=== PATIENT | male | born 1970 | race Caucasian/White ===

== ENCOUNTER 2023-07-23 09:10 | Outpatient (OUT) | payer OTHER, SELFPAY ==
[2023-07-23 09:48] LABS: Basophils Absolute Auto 0.1 10^3/uL (0.0-0.1); Basophils Percent Auto 1.3 % (0.2-2.0); Eosinophils Absolute Auto 0.2 10^3/uL (0.0-0.7); Eosinophils Percent Auto 3.1 % (0.9-7.0); Hematocrit 46.1 % (42.0-54.0); Hemoglobin 15.1 g/dL (14.0-18.0); Immature Granulocytes Abs Auto 0.02 10^3/uL (0.00-0.03); Immature Granulocytes Pct Auto 0.4 % (0.0-0.5); Lymphocytes Absolute Auto 1.6 10^3/uL (1.2-3.8); Lymphocytes Percent Auto 28.9 % (20.5-60.0); Mean Corpuscular HGB Conc 32.8 g/dL (29.9-35.2); Mean Corpuscular Hemoglobin 31.4 pg (25.9-34.0); Mean Corpuscular Volume 95.8 fL (80.0-94.0); Mean Platelet Volume 9.7 fL (9.5-13.5); Monocytes Absolute Auto 0.7 10^3/uL (0.3-0.8); Monocytes Percent Auto 12.8 % (1.7-12.0); Neutrophils Absolute Auto 2.9 10^3/uL (1.4-6.5); Neutrophils Percent Auto 53.5 % (43.0-75.0); Platelet Count 233 10^3/uL (150-450); Red Blood Count 4.81 10^6/uL (4.70-6.10); Red Cell Distribution Width 13.7 % (11.0-15.0); White Blood Count 5.5 10^3/uL (4.0-11.0)
[2023-07-23 09:52] LABS: Microalbumin Urine Random 10.4 mg/dL (<=30.0)
[2023-07-23 09:53] LABS: Alanine Aminotransferase 58 U/L (16-63); Alkaline Phosphatase 94 U/L (46-116); Anion Gap 10.6; Aspartate Amino Transferase 28 U/L (15-37); Bilirubin Total 0.5 mg/dL (0.2-1.0); Calcium 9.7 mg/dL (8.5-10.1); Carbon Dioxide 30.2 mmol/L (21.0-32.0); Chloride 103 mmol/L (98-107); Chol HDL Ratio 3.8; Cholesterol 166 mg/dL (<=200); Estimated GFR (African America >60 (>=60); Estimated GFR (Non-African Ame >60 (>=60); Glucose 114 mg/dL (74-106); HDL Cholesterol 44 mg/dL (40-60); LDL Cholesterol Calculated 99.2 mg/dL; Potassium 3.8 mmol/L (3.5-5.1); Sodium 140 mmol/L (136-145); Triglycerides 114 mg/dL (<=150); VLDL CHOLESTEROL 22.8 mg/dL
[2023-07-23 10:34] LABS: Estimated Average Glucose 123 mg/dL; Glycohemoglobin A1C 5.9 % (4.5-6.2)
== END 2023-07-23 09:11 | disposition home or self-care (01) ==
PROVIDERS: PCP Internal Medicine; Visit Provider Internal Medicine
DX: Z00.00 Encounter for general adult medical examination without abnormal findings (principal)
CPT/HCPCS: 36415; 80053; 80061; 82043; 83036; 85025; G0103

== ENCOUNTER 2024-07-10 09:10 | Outpatient (OUT) | payer OTHER, SELFPAY ==
--- NOTE | 2024-07-10 09:27 | XR_ITS ---
[facility] [place] [id number] Patient Name: ASHLIE PETTY MRN: [facility]:[id number] date: 1970 Sex: M Assigned Patient Location: LAB Current Patient Location: Accession/Order Number: [id number] Exam Date: 07/10/2024 09:40 Report Date: 07/13/2024 21:22 At the request of: TAMERA BYERS Procedure: XR lumbar spine 6V w bending EXAM: XR lumbar spine 6V w bending HISTORY: Low Back Pain, Spondylosis Of Lumbar Pain COMPARISON: None. FINDINGS/IMPRESSION: 1. No acute fracture or dislocation. 2. Moderate degeneration of the L4-L5 and L5-S1 disc space. 3. Retrolisthesis of L4 on L5 measuring 0.5 cm in extension and 0.2 cm in flexion. 4. Atherosclerotic calcification of the abdominal aorta. 5. Mild degeneration of the sacroiliac joints. 6. Overlying bowel gas pattern is nonspecific. 7. Phleboliths of the pelvis. 8. Normal alignment of the bilateral hip joints. Electronically authenticated by: SCOTT HORNER Date: 07/13/2024 21:22
--- OUTSIDE RECORDS SUMMARY | 2024-07-10 09:32 | XMS_ITS | CCD ---
Author Organization [facility] Care Team Providers Care Audit Director Name Role Phone FREDRICK, DR PHILIP Admitting Unavailable FREDRICK, DR PHILIP Attending Unavailable FREDRICK, DR PHILIP Primary Care Unavailable FREDRICK, DR PHILIP Consulting Unavailable AGUSTIN, DR LONGO Admitting Unavailable AGUSTIN, DR LONGO Attending Unavailable FREDRICK, DR PHILIP Primary Care Unavailable AGUSTIN, DR LONGO Consulting Unavailable ARAM, NATHANIEL Consulting Unavailable FREDRICK, DR PHILIP Admitting Unavailable FREDRICK, DR PHILIP Attending Unavailable FREDRICK, DR PHILIP Primary Care Unavailable AGUSTIN, DR LONGO Admitting Unavailable AGUSTIN, DR LONGO Attending Unavailable FREDRICK, DR PHILIP Primary Care Unavailable AGUSTIN, DR LONGO Consulting Canelo BYERS, DR PHILIP Admitting Unavailable FREDRICK, DR PHILIP Attending Unavailable FREDRICK, DR PHILIP Primary Care Unavailable FREDRICK, DR PHILIP Consulting Canelo Byers, Waylon Unavailable Medications Current Medications Medication Drug Class(es) Dates Sig (Normalized) Sig (Original) ascorbic acid 500 mg oral tablet (1 source) Vitamin C Start: 07-10-2024 take 1 tablet by mouth once daily Ascorbic Acid (Vitamin C) 500 mg tablet Active 500 MG PO Daily July 10, 2024 12:00am atorvastatin 80 mg oral tablet (16 sources) HMG-CoA Reductase Inhibitor Start: 09-05-2023 End: 07-10-2024 take 1 tablet by mouth once daily Atorvastatin 80 mg tablet Active 80 MG PO Daily 90 90 July 10, 2024 8:55am take 1 tablet by darcy th every twenty-four hours Atorvastatin Calcium 80 MG 1 tablet Oral ly Once a day for 90 days Active diphenhydrAMINE hydrochloride 25 mg oral tablet (1 source) Histamine-1 Receptor Antagonist Start: 07-10-2024 take 1 tablet by mouth once daily at bedtime as needed Diphenhydramine Hcl (Benadryl Allergy) 25 mg tablet Active 25 MG PO Daily at bedtime as needed July 10, 2024 12:00am 60 actuat fluticasone propionate 0.25 mg/actuat / salmeterol 0.05 mg/actuat dry powder inhaler (13 sources) Corticosteroid, beta2-Adrenergic Agonist Start: 07-10-2024 Fluticasone Propion-Salmeterol 250-50 mcg/dose blister with device Active 1 INH INHALATION Twice daily 180 July 10, 2024 8:55am Start: 11-06-2023 End: 07-10-2024 Fluticasone Propion-Salmeter ol 250-50 mcg/dose blister with device Discontinued 1 INH INHALATION Twice daily November 05, 2023 11:00pm July 10, 2024 8:56am Start: 11-06-2023 Fluticasone Pr opion-Salmeterol Active 1 INH INHALATION Twice daily November 06, 2023 12:00am take 1 puff(s) by in halation twice daily Wixela Inhub 250-50 MCG/ACT 1 puff Inhalation Twice a day for 90 days Active levocetirizine dihydrochloride 5 mg oral tablet (2 sources) Histamine-1 Receptor Antagonist Start: 07-10-2024 End: 07-10-2024 take 1 tablet by mouth once daily in the evening Levocetirizine (Xyzal) 5 mg tablet Active 5 MG PO Every evening 90 July 10, 2024 8:55am lisinopril 20 mg oral tablet (16 sources) Angiotensin Converting Enzyme Inhibitor Start: 09-05-2023 End: 07-10-2024 take 1 tablet by mouth once daily Lisinopril 20 mg tablet Active 20 MG PO Daily 90 July 10, 2024 8:56am take 1 tablet by darcy th every twenty-four hours Lisinopril 20 MG 1 tablet Orally Once a day for 90 days Active magnesium glycinate 100 mg oral tablet (1 source) Start: 07-10-2024 take 1 tablet by mouth once daily Magnesium Glycinate 100 mg tablet Active 100 MG PO Daily July 10, 2024 12:00am Multivitamin tablet (1 source) Start: 07-10-2024 take 1 tablet by mouth once daily Multivitamin tablet Active 1 TAB PO Daily July 10, 2024 12:00am [place] 8-Krc-Ljh-Fish Oil (Fish Oil) 60-90-500 mg capsule (1 source) Start: 07-10-2024 take 1 capsule by mouth once daily [place] 9-Gfd-Nqc-Fish Oil (Fish Oil) 60-90-500 mg capsule Active 1 CAP PO Daily July 10, 2024 12:00am tiZANidine 4 mg oral tablet (12 sources) Central alpha-2 Adrenergic Agonist Start: 08-22-2023 End: 07-10-2024 take 1 tablet by mouth once daily at bedtime Tizanidine 4 mg tablet Active 4 MG PO Daily at bedtime 90 90 July 10, 2024 8:56am Start: 07-23-2023 tiZANidine HCl 4 MG 1/2 - 1 Orally q HS for 30 days Jun, Active traZODone hydrochloride 50 mg oral tablet (14 sources) Serotonin Reuptake Inhibitor Start: 07-10-2024 take 1 tablet by mouth once daily at bedtime Trazodone 50 mg tablet Active 50 MG PO Daily at bedtime 90 90 July 10, 2024 8:50am Start: 06-03-2024 End: 07-10-2024 Trazodone 50 mg tablet Disco ntinued 0 .ROUTE .COMPLEX 45 June 03, 2024 7:04am July 10, 2024 8:54am TAKE 1 AND 1/2 TABLETS BY MOUTH AT BEDTIME Start: 11-06-2023 End: 06-03-2024 Trazodone 50 mg tablet Disco ntinued 75 MG PO Daily at bedtime November 05, 2023 11:00pm June 03, 2024 7:04am Start: 11-06-2023 take 75 mg by mouth once daily at bedtime Trazodone Active 75 MG PO Daily at bedtime November 06, 2023 12:00am traZODone HCl 50 MG 1 1/2 Orally q HS for 30 days Active ZINC CITRATE (1 source) Start: 07-10-2024 Zinc Citrate 1 6.7 mg tablet,chewable Active MG PO July 10, 2024 12:00am Completed/Discontinued Medications Medication Drug Class(es) Dates Sig (Normalized) Sig (Original) [id number] 200 actuat albuterol 0.09 mg/actuat metered dose inhaler (14 sources) beta2-Adrenergic Agonist Start: 11-06-2023 End: 07-10-2024 take 1 puff(s) by inhalation every six hours as needed Albuterol Sulfate 90 mcg/actuation HFA aerosol inhaler Discontinued 2 PUFF INHALATION Every 6 hours as needed November 05, 2023 11:00pm July 10, 2024 8:41am take 2 puff(s) by in halation every six hours as needed for cough Albuterol Sulfate HFA 108 (90 Base) MCG/ACT 2 puffs Inhalation every 6 hours as needed for cough and SOB for 90 days Active take 1 puff(s) by in halation every four hours as needed ProAir Digihaler 108 (90 Base) MCG/ACT 1 puff as needed Inhalation every 4 hrs 90 MCG Active busPIRone hydrochloride 7.5 mg oral tablet (12 sources) Start: 11-06-2023 End: 07-10-2024 take 1 tablet by mouth once daily Buspirone 7.5 mg tablet Discontinued 7.5 MG PO Daily November 05, 2023 11:00pm July 10, 2024 8:41am take 1 tablet by darcy th every twenty-four hours busPIRone HCl 7.5 MG 1 tablet Orally ONCE A DAY for 90 days Active fluticasone propionate 0.05 mg/actuat metered dose nasal spray (12 sources) Corticosteroid Start: 11-06-2023 End: 07-10-2024 Fluticasone Propionate (Flonase Allergy Relief) 50 mcg/actuation spray,suspension Discontinued 1 SPRAY INTRANASAL Daily at bedtime November 05, 2023 11:00pm July 10, 2024 8:42am take 1-2 spray(s) na kirill route once daily at bedtime FLONASE 50 mcg 1-2 sprays each NOSTRIL QHS Active hydrocortisone 10 mg/ml / neomycin 3.5 mg/ml / polymyxin b [id number] unt/ml otic suspension (1 source) Aminoglycoside Antibacterial, Polymyxin-class Antibacterial, Corticosteroid Start: 04-27-2024 End: 07-10-2024 Otnmdnpt-Jfkwjmawa-Hv 3.5-10,000-1 mg/mL-unit/mL-% drops,suspension Discontinued 4 DROPS OTIC Every 8 hours as needed for ear pain 10 April 27, 2024 12:00am July 10, 2024 8:42am predniSONE 20 mg oral tablet (13 sources) Start: 12-19-2022 predniSONE 20 MG 1 tablet Orally tid w/ food x 3 days, then bid w/ food x 3 days, then qd w/ food x 3 days for 9 Nov, Not-Taking/PRN Start: 12-14-2022 predniSONE 20 MG 1 tablet Orally bid w/ food x 4 days, then qd w/ food x 3 days for 7 days Nov, Not-Taking/PRN triamcinolone acetonide 5 mg/ml topical cream (18 sources) Corticosteroid Start: 11-06-2023 End: 07-10-2024 Triamcinolone Acetonide 0.5 % cream Discontinued 1 APPLIC TOPICAL Twice daily as needed November 05, 2023 11:00pm July 10, 2024 8:42am Start: 12-19-2022 Triamcinolone Acetonide 0.5 % 1 application Externally Two times a Week for 7 days Nov, Active Start: 12-19-2022 Triamcinolone Acetonide 0.5 % 1 application Externally Two times a Week for 7 days Nov, Active Start: 12-19-2022 Triamcinolone Ac etonide 0.5 % 1 application Externally bid as needed for rash for 30 days Active Triamcinolone Ac etonide 0.5 % 1 application Externally bid as needed for rash for 30 days Active Problems Active Problems Problem Classification Problem Date Documented Date Episodic/Chronic Abdominal pain (2 sources) Right upper quadrant pain; Translations: [Right upper quadrant pain] Episodic Allergic reactions (7 sources) Allergic contact dermatitis due to plants, except food; Translations: [Allergic contact dermatitis due to plants, except food] Episodic Anxiety disorders (17 sources) Generalized anxiety disorder; Translations: [Generalized anxiety disorder] Chronic Asthma (13 sources) Unspecified asthma, uncomplicated; Translations: [Uncomplicated mild persistent asthma] Onset: 08-26-2020 Chronic Diabetes mellitus with complications (19 sources) Hyperglycemia due to type 2 diabetes mellitus; Translations: [Type 2 diabetes mellitus with hyperglycemia] Chronic Disorders of lipid metabolism (20 sources) Pure hypercholesterolemia, unspecified; Translations: [Pure hypercholesterolemia] Onset: 08-26-2020 Chronic Diverticulosis and diverticulitis (2 sources) Diverticulitis; Translations: [Diverticulitis of intestine, part unspecified, without perforation or abscess without bleeding] Chronic Essential hypertension (19 sources) Essential (primary) hypertension; Translations: [Essential hypertension] Onset: 08-26-2020 Chronic Miscellaneous mental health disorders (18 sources) Primary insomnia; Translations: [Primary insomnia] Chronic Osteoarthritis (19 sources) Unspecified osteoarthritis, unspecified site; Translations: [Localized, primary osteoarthritis of the hand] Onset: 08-26-2020 Chronic Other congenital anomalies (9 sources) Talipes equinovarus; 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, 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 Other connective tissue disease (8 sources) Plantar fascial fibromatosis; Translations: [Plantar fascial fibromatosis] Episodic Other connective tissue disease (1 source) Plantar fascial fibromatosis; Translations: [Plantar fascial fibromatosis] Episodic Other ear and sense organ disorders (2 sources) Acute actinic otitis externa; Translations: [Acute actinic otitis externa, right ear] Episodic Other screening for suspected conditions (not mental disorders or infectious disease) (17 sources) Encounter for screening for malignant neoplasm of prostate; Translations: [Encounter for screening for malignant neoplasm of colon] Onset: 08-24-2020 Episodic Other skin disorders (9 sources) Vesicular eczema of hands and/or feet; Translations: [Dyshidrosis [pompholyx]] Episodic Screening and history of mental health and substance abuse codes (2 sources) Encounter for screening for depression; Translations: [Depression screening] Episodic Spondylosis; intervertebral disc disorders; other back problems (12 sources) Lumbar spondylosis; Translations: [Spondylosis without myelopathy or radiculopathy, lumbar region] Chronic Spondylosis; intervertebral disc disorders; other back problems (3 sources) Low back pain; Translations: [Low back pain] 07-10-2024 Episodic Unclassified (4 sources) CONTACT W/AND (SUSP) EXPOS COVID-19; Translations: [CONTACT W/AND (SUSP) EXPOS COVID-19] Onset: 08-25-2020 Past or Other Problems Problem Classification Problem Date Documented Da te Episodic/Chronic Unclassified (1 source) CONTACT W/AND (SUSP) EXPOS COVID-19; Translations: [CONTACT W/AND (SUSP) EXPOS COVID-19] Onset: 07-07-2021 Unclassified (1 source) Congenital talipes equinovarus, unspecified foot Results Test Name Value Interpretation Reference Range Facility Comprehensive Metabolic Pane emmett 01-30-2024 Albumin [Mass/Vol] 4.694844 g/dL Normal 3.4-5.0 g/dL [facility] Other ALP [Catalytic activity/Vol] 94 U/L Normal 46-116 U/L [facility] Other ALT [Catalytic activity/Vol] 58 U/L Normal 16-63 U/L [facility] Other Anion gap [Moles/Vol] 10.6 mmol/L [facility] Other AST [Catalytic activity/Vol] 28 U/L Normal 15-37 U/L [facility] Other Bilirubin [Mass/Vol] 0.1974160 mg/dL Normal 0.2-1.0 mg /dL [facility] Other Calcium [Mass/Vol] 9.1549447 mg/dL Normal 8.5-10.1 mg/ dL [facility] Other Chloride [Moles/Vol] 103 mmol/L Normal 98-107 mmol/L [facility] Other CO2 [Moles/Vol] 30.37269466 mmol/L Normal 21.0-3 2.0 mmol/L [facility] Other Creatinine [Mass/Vol] 0.67591678 mg/dL Low 0.70-1.30 mg/dL [facility] Other Glucose [Mass/Vol] 114 mg/dL High 74-106 mg/dL [facility] Other Potassium [Moles/Vol] 3.61356238 mmol/L Normal 3.5-5.1 mmol/L [place] [employer] [facility] Other Protein [Mass/Vol] 8.794806 g/dL Normal 6.4-8.2 g/dL [employer] Other Sodium [Moles/Vol] 140 mmol/L Normal 136-145 mmol/L [facility] Other Urea nitrogen [Mass/Vol] 9.6491656 mg/dL Normal 7.0-18.0 mg/dL [facility] Other Urea nitrogen/Creatinine [Mass ratio] 13.0 mg/mg [facility] Other Comprehensive Metabolic Panel 4.0 g/dL [facility] Other Comprehensive Metabolic Panel 1.0 [facility] Other Comprehensive Metabolic Panel see note [facility] Other Comprehensive Metabolic Panel >60 >=60 [facility] Other Lipid Panelon 07-23-2023 Cholesterol [Mass/Vol] 166 mg/dL <=200 mg/dL [facility] Other Cholesterol in HDL [Mass/Vol] 44 mg/dL Normal 40-60 mg/dL [facility] Other Triglyceride [Mass/Vol] 114 mg/dL <=150 mg/dL [facility] Other Lipid Panel 99.2 mg/dL [facility] Other Lipid Panel 22.8 mg/dL [facility] Other Lipid Panel 3.8 [facility] Other PSA SCREENINGon 07-23-2023 PSA SCREENING 1.10 ng/mL <=4.00 ng/mL [facility] Other Comprehensive Metabolic Pane emmett 07-13-2022 Albumin [Mass/Vol] 4.1 g/dL [facility] Other Calcium [Mass/Vol] 9.9 mg/dL [facility] Other Chloride [Moles/Vol] 101 mmol/L [facility] Other CO2 [Moles/Vol] 30.6 mmol/L [facility] Other Creatinine [Mass/Vol] 0.65 mg/dL [facility] Other Creatinine [Mass/Vol] 21.5 mg/dL [employer] Other Glucose [Mass/Vol] 135 mg/dL [employer] Other Potassium [Moles/Vol] 4.2 mmol/L [employer] Other Sodium [Moles/Vol] 139 mmol/L [employer] Other Urea nitrogen [Mass/Vol] 14.0 mg/dL [employer] Other Comprehensive Metabolic Panel [employer] Other Comprehensive Metabolic Panel >60 [employer] Other Comprehensive Metabolic Panel 7.8 [employer] Other Comprehensive Metabolic Panel 3.7 [employer] Other CBC AUTO DIFFon 07-21-2021 BASO # 0.1 103/ul Normal 0.0-0.1 [facility] Comment on above: Performed By: #### C BC #### [facility] [address] [place] [address] Dr. Iliana Condon Basophils/100 WBC (Bld) 1.1 % Normal 0.2-2.0 [facility] Comment on above: Performed By: #### C BC #### [facility] [address] [place] [address] Dr. Iliana Condon EO # 0.2 103/ul Normal 0.0-0.7 [facility] Comment on above: Performed By: #### C BC #### [facility] [address] [place] [address] Dr. Iliana Condon Eosinophils/100 WBC (Bld) 4.2 % Normal 0.9-7.0 [facility] Comment on above: Performed By: #### C BC #### [facility] [address] [place] [address] Dr. Iliana Condon Erythrocyte distribution width (RBC) [Ratio] 13.2 % Normal 11.0-15.0 [facility] Comment on above: Performed By: #### C BC #### [facility] [address] [place] [address] Dr. Iliana Condon Hematocrit (Bld) [Volume fraction] 47.5 % Normal 42.0-54.0 [facility] Comment on above: Performed By: #### C BC #### [facility] [address] [place] [address] Dr. Iliana Condon Hemoglobin (Bld) [Mass/Vol] 16.2 g/dL Normal 14.0-18.0 [facility] Comment on above: Performed By: #### C BC #### [facility] [address] [place] [address] Dr. Iliana Condon IG # 0.01 10e3/ul Normal 0.00-0.03 [facility] Comment on above: Performed By: #### C BC #### [facility] [address] [place] [address] Dr. Iliana Condon IG % 0.2 % Normal 0.0-0.5 [facility] Comment on above: Performed By: #### C BC #### [facility] [address] [place] [address] Dr. Iliana Condon LYMPH # 1.5 103/ul Normal 1.2-3.8 [facility] Comment on above: Performed By: #### C BC #### [facility] [address] [place] [address] Dr. Iliana Condon Lymphocytes/100 WBC (Bld) 28.6 % Normal 20.5-60.0 [facility] Comment on above: Performed By: #### C BC #### [facility] [address] [place] [address] Dr. Iliana Condon MANUAL DIFF REQ NO Normal [facility] Comment on above: Performed By: #### C BC #### [facility] [address] [place] [address] Dr. Iliana Condon MCH (RBC) [Entitic mass] 31.8 pg Normal 25.9-34.0 [facility] Comment on above: Performed By: #### C BC #### [facility] [address] [place] [address] Dr. Iliana Condon MCHC (RBC) [Mass/Vol] 34.1 g/dL Normal 29.9-35.2 [facility] Comment on above: Performed By: #### C BC #### [facility] [address] [place] [address] Dr. Iliana Condon MCV (RBC) [Entitic vol] 93.1 fL Normal 80.0-94.0 [facility] Comment on above: Performed By: #### C BC #### [facility] [address] [address] [address] Iliana Condon MONO # 0.7 103/ul Normal 0.3-0.8 [facility] Comment on above: Performed By: #### C BC #### [facility] [address] [place] [address] Dr. Iliana Condon Monocytes/100 WBC (Bld) 12.6 % Critically high 1.7-12.0 [facility] Comment on above: Performed By: #### C BC #### [facility] [address] [place] [address] Dr. Iliana Condon NEUT # 2.8 103/ul Normal 1.4-6.5 [facility] Comment on above: Performed By: #### C BC #### [facility] [address] [place] [address] Dr. Iliana Condon Neutrophils/100 WBC (Bld) 53.3 % Normal 43.0-75.0 [facility] Comment on above: Performed By: #### C BC #### [facility] [address] [place] [address] Dr. Iliana Condon Platelet mean volume (Bld) [Entitic vol] 9.4 fL Critically low 9.5-13.5 [facility] Comment on above: Performed By: #### C BC #### [facility] [address] [place] [address] Dr. Iliana Condon PLT 224 103/ul Normal 150-450 [facility] Comment on above: Performed By: #### C BC #### [facility] [address] [place] [address] Dr. Iliana Condon RBC 5.10 106/ul Normal 4.70-6.10 [facility] Comment on above: Performed By: #### C BC #### [facility] [address] [place] [address] Dr. Iliana Condon WBC 5.2 103/ul Normal 4.0-11.0 [facility] Comment on above: Performed By: #### C BC #### [facility] [address] [place] [address] Dr. Iliana Condon GLYCOHEMOGLOBIN A1Con 2021 ADA RECOMMENDATION ADA THERAPEUTIC TARGET 6.0 - 7.0 ACTION SUGGESTED > 7.[address] [facility] Comment on above: Performed By: #### A 1C #### [facility] [address] [place] [address] Dr. Iliana Condon Glucose [Mass/Vol] 140 mg/dL Normal [facility] Comment on above: Performed By: #### A 1C #### [facility] [address] [place] [address] Dr. Iliana Condon HbA1c (Bld) [Mass fraction] 6.5 % Critically high <=6.0 [facility] Comment on above: Performed By: #### A 1C #### [facility] [address] [place] [address] Dr. Iliana Condon LIPID PROFILEon 07-21-2021 CHOL-HDL RATIO NORM SEE BELOW Normal [facility] Comment on above: Result Comment: 3.3 - 4.4 LOW RISK 4.4 - 7.1 AVERAGE RISK 7.1 - 11.0 MODERATE RISK >11.0 HIGH RISK Performed By: #### L IPID, CMP #### [facility] [address] [place] [address] Dr. Iliana Condon Cholesterol [Mass/Vol] 233 mg/dL Critically high <=200 [facility] Comment on above: Performed By: #### L IPID, CMP #### [facility] [address] [place] [address] Dr. Iliana Condon Cholesterol in HDL [Mass/Vol] 57 mg/dL Normal [facility] Comment on above: Performed By: #### L IPID, CMP #### [facility] [address] [address] [address] Iliana Condon Cholesterol in LDL [Mass/Vol] 128.4 mg/dL Normal [facility] Comment on above: Performed By: #### L IPID, CMP #### [facility] [address] [address] [address] Iliana Condon Cholesterol.total/Ch olesterol in HDL [Mass ratio] 4.1 {ratio} Normal [facility] Comment on above: Performed By: #### L IPID, CMP #### [facility] [address] [address] [address] Iliana Condon HDL NORMAL > or = 60 mg/dl - LOW CARDIOVASCULAR RISK <40 mg/dl - HIGH CARDIOVASCULAR RISK Normal [facility] Comment on above: Performed By: #### L IPID, CMP #### [facility] [address] [place] [address] Dr. Iliana Condon LDL CALC NORMAL SEE BELOW Normal [facility] Comment on above: Result Comment: <100 mg/dl OPTIMAL 100 - 129 mg/dl NEAR OR ABOVE OPTIMAL 130 - 159 mg/dl BORDERLINE HIGH 160 - 189 mg/dl HIGH >190 mg/dl VERY HIGH Performed By: #### L IPID, CMP #### [facility] [address] [place] [address] Dr. Iliana Condon Triglyceride [Mass/Vol] 238 mg/dL Critically high <=150 [facility] Comment on above: Performed By: #### L IPID, CMP #### [facility] [address] [address] [address] Iliana Condon VLDL CALC 47.6 mg/dL Normal [facility] Comment on above: Performed By: #### L IPID, CMP #### [facility] [address] [place] [address] Dr. Iliana Condon MICROALBUMIN, RAND URon -2 mALB 21.2 mg/L Normal <=30.0 [facility] Comment on above: Performed By: #### M ALBR #### [facility] [address] [place] [address] Dr. Iliana Condon PROF 14(COMP METB)on 022 Albumin [Mass/Vol] 4.2 g/dL Normal 3.5-5.0 [facility] Comment on above: Performed By: #### L IPID, CMP #### [facility] [address] [address] [address] Iliana Condon Albumin/Globulin [Mass ratio] 1.1 {ratio} Normal [facility] Comment on above: Performed By: #### L IPID, CMP #### [facility] [address] [address] [address] Iliana Condon ALP [Catalytic activity/Vol] 97 U/L Normal 38-126 [facility] [facility] Comment on above: Performed By: #### L IPID, CMP #### [facility] [address] [address] [address] Iliana Condon ALT [Catalytic activity/Vol] 62 U/L Normal 21-72 [facility] Comment on above: Performed By: #### L IPID, CMP #### [facility] [address] [address] [address] Iliana Condon Anion gap [Moles/Vol] 13.6 mmol/L Normal [facility] Comment on above: Performed By: #### L IPID, CMP #### [facility] [address] [address] [address] Iliana Condon AST [Catalytic activity/Vol] 34 U/L Normal 17-59 [facility] Comment on above: Performed By: #### L IPID, CMP #### [facility] [address] [address] [address] Iliana Condon Bilirubin [Mass/Vol] 0.6 mg/dL Normal 0.2-1.3 [facility] Comment on above: Performed By: #### L IPID, CMP #### [facility] [address] [address] [address] Iliana Condon Calcium [Mass/Vol] 10.2 mg/dL Normal 8.4-10.2 [facility] Comment on above: Performed By: #### L IPID, CMP #### [facility] [address] [address] [address] Iliana Condon Chloride [Moles/Vol] 100 mmol/L Normal 98-107 [facility] Comment on above: Performed By: #### L IPID, CMP #### [facility] [address] [address] [address] Iliana Condon CO2 [Moles/Vol] 27.2 mmol/L Normal 22.0-30.0 [facility] Comment on above: Performed By: #### L IPID, CMP #### [facility] [address] [address] [address] Iliana Condon Creatinine [Mass/Vol] 0.61 mg/dL Critically low 0.66-1.25 [facility] Comment on above: Performed By: #### L IPID, CMP #### [facility] [address] [place] [address] Dr. Iliana Condon EGFR-AF MEXICAN >60 Normal >=60 [facility] Comment on above: Performed By: #### L IPID, CMP #### [facility] [address] [place] [address] Dr. Iliana Condon EGFR-NON AF MEXICAN >60 Normal >=60 [facility] Comment on above: Performed By: #### L IPID, CMP #### [facility] [address] [address] [address] Iliana Condon Globulin (S) [Mass/Vol] 3.8 g/dL Normal [facility] Comment on above: Performed By: #### L IPID, CMP #### [facility] [address] [place] [address] Dr. Iliana Condon Glucose [Mass/Vol] 103 mg/dL Normal 74-106 [facility] Comment on above: Performed By: #### L IPID, CMP #### [facility] [address] [address] [address] Iliana Condon Potassium [Moles/Vol] 4.8 mmol/L Normal 3.4-5.0 [facility] Comment on above: Performed By: #### L IPID, CMP #### [facility] [address] [address] [address] Iliana Condon Protein [Mass/Vol] 8.0 g/dL Normal 6.1-8.2 [facility] Comment on above: Performed By: #### L IPID, CMP #### [facility] [address] [place] [address] Dr. Iliana Condon Sodium [Moles/Vol] 136 mmol/L Critically low 137-145 [facility] Comment on above: Performed By: #### L IPID, CMP #### [facility] [address] [place] [address] Dr. Iliana Condon Urea nitrogen [Mass/Vol] 15.0 mg/dL Normal 9.0-20.0 [facility] Comment on above: Performed By: #### L IPID, CMP #### [facility] [address] [place] [address] Dr. Iliana Condon Urea nitrogen/Creatinine [Mass ratio] 24.6 mg/mg Normal [facility] Comment on above: Performed By: #### L IPID, CMP #### [facility] [address] [place] [address] Dr. Iliana Condon Covid-19 PCR ([facility])on 06-24 SARS-CoV-2 (COVID-19) RNA TRISTA+probe Ql (Unsp spec) Not detected Normal NOT DETECTED [facility] Comment on above: Result Comment: This test is not yet approved or cleared by the [place] FDA. When there are no FDA-approved or cleared tests available, and other criteria are met, FDA can make tests available under an emergency access mechanism called an Emergency Use Authorization (EUA). The EUA for this test is supported by the Com[employer] Pilot of Health and Human Service's (HHS's) declaration that circumstances exist to justify the emergency use of in vitro diagnostics for the detection and/or diagnosis of the virus that causes COVID-19. This EUA will remain in effect (meaning this test can be used) for the duration of the COVID-19 declaration justifying emergency of IVDs, unless it is terminated or revoked by FDA (after which the test may no longer be used). When diagnostic testing is negative, the possibility of a false negative should be considered in the context of a patient's recent exposures and the presence of clinical signs and symptoms consistent with SARS-CoV-2. Performed By: #### C VDTB #### [facility] [address] [place] [address] [id number] [address] Iliana Condon Covid-19 PCR ([facility])on 07-26 SARS-CoV-2 (COVID-19) RNA TRISTA+probe Ql (Unsp spec) Not detected Normal NOT DETECTED [facility] Comment on above: Result Comment: This test is not yet approved or cleared by the [place] FDA. When there are no FDA-approved or cleared tests available, and other criteria are met, FDA can make tests available under an emergency access mechanism called an Emergency Use Authorization (EUA). The EUA for this test is supported by the Commut[employer] Pilot of Health and Human Service's (HHS's) declaration that circumstances exist to justify the emergency use of in vitro diagnostics for the detection and/or diagnosis of the virus that causes COVID-19. This EUA will remain in effect (meaning this test can be used) for the duration of the COVID-19 declaration justifying emergency of IVDs, unless it is terminated or revoked by FDA (after which the test may no longer be used). When diagnostic testing is negative, the possibility of a false negative should be considered in the context of a patient's recent exposures and the presence of clinical signs and symptoms consistent with SARS-CoV-2. Performed By: #### C VDTB #### [facility] [address] [place] [address] Renetta Fajardo Vital Signs Date Time Vital Sign Value Performing Clinician Facility 07-10-2024 08:38-0500 Body height 162.[address] [facility] 07-10-2024 08:38-0500 Body mass index (BMI) [Ratio] 22.8 kg/m2 [facility] 07-10-2024 08:38-0500 Body weight 60.[address] [facility] 07-10-2024 08:38-0500 Diastolic blood pressure 86 mm[Hg] [facility] 07-10-2024 08:38-0500 Heart rate 93 /min [facility] 07-10-2024 08:38-0500 Respiratory rate 12 /min [facility] 07-10-2024 08:38-0500 Systolic blood pressure 138 mm[Hg] [facility] 03-09-2024 15:47-0400 Body height 162.[address] [facility] 03-09-2024 15:47-0400 Body mass index (BMI) [Ratio] 22.1 kg/m2 [facility] 03-09-2024 15:47-0400 Body weight 58.[address] [facility] 03-09-2024 15:47-0400 Diastolic blood pressure 89 mm[Hg] [facility] 03-09-2024 15:47-0400 Heart rate 103 /min [facility] 03-09-2024 15:47-0400 Respiratory rate 12 /min [facility] 03-09-2024 15:47-0400 Systolic blood pressure 139 mm[Hg] [facility] 11-08-2023 10:02-0400 Body height 162.[address] [facility] 11-08-2023 10:02-0400 Body mass index (BMI) [Ratio] 21.8 kg/m2 [facility] 11-08-2023 10:02-0400 Body weight 57.[address] [facility] 11-08-2023 10:02-0400 Diastolic blood pressure 83 mm[Hg] [facility] 11-08-2023 10:02-0400 Heart rate 101 /min [facility] 11-08-2023 10:02-0400 Respiratory rate 12 /min [facility] 11-08-2023 10:02-0400 Systolic blood pressure 127 mm[Hg] [facility] 07-23-2023 08:30-0500 Body height 162.56 cm Waylon Ball Other [employer] Other 07-23-2023 08:30-0500 Body mass index (BMI) [Ratio] 20.42 kg/m2 Waylon Ball Other [employer] Other 07-23-2023 08:30-0500 Body weight 53.98 kg Waylon Ball Other [employer] Other 07-23-2023 08:30-0500 Diastolic blood pressure 84 mm[Hg] Waylon Ball Other [employer] Other 07-23-2023 08:30-0500 Respiratory rate 12 /min Waylon Ball Other [employer] Other 07-23-2023 08:30-0500 Systolic blood pressure 133 mm[Hg] Waylon Ball Other [employer] Other 2023 09:00-0400 Body height 162.56 cm Waylon Ball Other [employer] Other 2023 09:00-0400 Body mass index (BMI) [Ratio] 21.54 kg/m2 Waylon Ball Other [employer] Other 2023 09:00-0400 Body weight 56.93 kg Waylon Ball Other [facility] [employer] Other 2023 09:00-0400 Diastolic blood pressure 80 mm[Hg] Waylon Ball Other [employer] Other 2023 09:00-0400 Respiratory rate 12 /min Waylon Ball Other [employer] Other 2023 09:00-0400 Systolic blood pressure 130 mm[Hg] Waylon Ball Other [employer] Other 12-19-2022 15:45-0400 Body height 162.56 cm Waylon Ball Other [employer] Other 12-19-2022 15:45-0400 Body mass index (BMI) [Ratio] 21.83 kg/m2 Waylon Ball Other [employer] Other 12-19-2022 15:45-0400 Body weight 57.7 kg Waylon Ball Other [employer] Other 12-19-2022 15:45-0400 Diastolic blood pressure 84 mm[Hg] Waylon Ball Other [employer] Other 12-19-2022 15:45-0400 Respiratory rate 12 /min Waylon Ball Other [employer] Other 12-19-2022 15:45-0400 Systolic blood pressure 134 mm[Hg] Waylon Ball Other [employer] Other 07-13-2022 09:30-0500 Body height 162.56 cm Waylon Ball Other [employer] Other 07-13-2022 09:30-0500 Body mass index (BMI) [Ratio] 22.04 kg/m2 Waylon Ball Other [employer] Other 07-13-2022 09:30-0500 Body weight 58.24 kg Waylon Ball Other [employer] Other 07-13-2022 09:30-0500 Diastolic blood pressure 76 mm[Hg] Waylon Ball Other [employer] Other 07-13-2022 09:30-0500 Respiratory rate 12 /min Waylon Ball Other [employer] Other 07-13-2022 09:30-0500 Systolic blood pressure 122 mm[Hg] Waylon Ball Other [employer] Other Encounters Encounter Date Encounter Type Care Provider Facility Start: 07-10-2024 End: 07-10-2024 ambulatory [facility] Work Phone: Start: 07-10-2024 End: 07-10-2024 Encounter for general adult medical examination without abnormal findings [facility] Start: 07-10-2024 End: 07-10-2024 Patient encounter procedure [facility] Physician [facility] Work Phone: Start: 07-07-2024 Patient encounter status [facility] Start: 03-09-2024 End: 03-09-2024 ambulatory [facility] Work Phone: Start: 03-09-2024 End: 03-09-2024 Patient encounter procedure [facility] Physician [facility] Work Phone: Start: 11-08-2023 End: 11-08-2023 ambulatory [facility] Work Phone: Start: 11-08-2023 End: 11-08-2023 Patient encounter procedure [facility] Physician [facility] Work Phone: Start: 08-22-2023 Non-patient / Non-visit [facility] Physician [facility] Work Phone: Start: 07-23-2023 End: 07-23-2023 ambulatory Waylon Byers Other [employer] Other Start: 07-23-2023 Encounter for genera l adult medical examination without abnormal findings Waylon Fred[facility] Start: 07-23-2023 Periodic preventive med est patient 40-64yrs Waylon Byers [facility] Start: 07-23-2023 Telephone encounter Waylon ARANDA [facility] Start: 02-26-2023 End: 02-26-2023 ambulatory Waylon Byers Other [employer] Other Start: 02-26-2023 Telephone encounter Waylon ARANDA [facility] Start: 2023 End: 2023 ambulatory Waylon Byers Other [employer] Other Start: 2023 Patient encounter procedure Waylon Byers [facility] Start: 12-19-2022 End: 12-19-2022 ambulatory Waylon Byers Other [employer] Other Start: 12-19-2022 Office outpatient vi sit 15 minutes Waylon Byers [facility] Start: 12-18-2022 End: 12-18-2022 ambulatory Waylon Byers Other [employer] Other Start: 12-18-2022 Telephone encounter Waylon Byers [facility] Start: 12-14-2022 End: 12-14-2022 ambulatory Waylon Byers Other [employer] Other Start: 12-14-2022 Telephone encounter Waylon Byers [facility] Start: 07-29-2022 End: 07-29-2022 ambulatory Waylon Byers Other [employer] Other Start: 07-29-2022 Telephone encounter Waylon Byers [facility] Start: 07-13-2022 End: 07-13-2022 ambulatory Waylon Fredrick Other [employer] Other Start: 07-13-2022 Encounter for genera l adult medical examination without abnormal findings Waylon Byers [facility] Start: 07-13-2022 Periodic preventive med est patient 40-64yrs Waylon Byers [facility] Start: 07-25-2021 Encounter for genera l adult medical examination without abnormal findings DR WAYLON BYERS [facility] Start: 07-21-2021 End: 07-22-[address] WAYLON BYERS Facility:[facility] Start: 07-21-2021 End: 07-22-2021 Encounter for general adult medical examination without abnormal findings DR WAYLON BYERS Facility:[facility] Start: 07-07-2021 End: 07-07-[address] WAYLON BYERS Facility:[facility] Start: 06-23-[address] WAYLON BYERS Facili ty:[facility] Start: 08-25-2020 Encounter for preprocedural laboratory examination DR QING VELEZ [facility] Start: 08-24-2020 End: 08-24-[address] QING VELEZ Facility:[facility] Start: 08-20-2020 End: 08-21-[address] QING VELEZ Facility:[facility] Start: 08-20-2020 End: 08-21-2020 Encounter for preprocedural laboratory examination DR QING VELEZ Facility:[facility] Procedures Date Procedure Procedure Detail Performing Clinician Start: 07-21-[address] EDUARDO [facility] [place] Comment on above: Performed By: #### P SAS #### [facility] [address] [address] [address] Iliana Condon Depression screening Nany Byers Other Plan of Treatment Date Care Activity Detail Author Start: 07-10-2024 Patient referral [facility] Work Phone: Comprehensive metabo lic 2000 panel - Serum or Plasma [facility] Patient Education Low back pain in adults [facility] Work Phone: Patient referral [facility] Work Phone: XR Lumbar spine Views [facility] Immunizations Immunization Date Immunization Notes Care Provider Fa greer 03-09-2024 influenza, seasonal, injectable, preservative free [facility] 2023 influenza, injectabl e, quadrivalent, preservative free Waylon Byers Other [facility] 03-07-2022 influenza virus vaccine, split virus (incl. purified surface antigen) Waylon Byers Other [employer] Other 03-07-2022 influenza virus vaccine, unspecified formulation [facility] 05-27-2020 zoster vaccine, live Benjami n Fredrick Other [facility] 03-03-2020 zoster vaccine, live Delmyami n [facility] Other [facility] 02-23-2020 influenza virus vaccine, split virus (incl. purified surface antigen) Waylon Byers Other [facility] [employer] Other 02-23-2020 influenza virus vaccine, unspecified formulation [facility] Payers Date Payer Category Payer Unknown [id number] [id number] [id number] 1970 Unknown [id number] [id number] [id number] 1970 Unknown [id number] [id number] [id number] 1970 Unknown [id number] [id number] [id number] 1970 Unknown [id number] 2.16.84 [id number] 1959 Self-pay 1959 Unknown [id number] Unknown [id number] 2.16.8 [id number] Social History Date Type Detail Facility Sex Assigned At [facility] Other Start: 08-22-2023 End: 08-22-2023 Tobacco smoking status NHIS Ex-smoker (finding) [facility] Start: 1970 Sex Assigned At Male F [facility] Start: 07-10-2024 Sex Male (finding) [facility] Medical Equipment Procedure Code Equipment Code Equipment Original Text Equi pment Identifier Dates Clinical Notes 08-24-2020 to 07-23-2023 Note Date & Type Note Facility 07-23-2023 Evaluation note Encounter Date Diagnosis Assessment Notes Jun, Wellness examination (ICD-10 - Z00.00) Healthy diet and exercise. Reviewed age-appropriate preventive testing recommended. Jun, Type 2 diabetes mellitus with hyperglycemia, without long-term current use of insulin (ICD-10 - E11.65) This patient is following a comprehensive diabetic treatment plan. They are checking their feet daily for calluses and nonhealing ulcers. They are being seen for yearly dilated eye examinations. Goals: SBP less than 130, LDL less than 100, FBS less than 140, A1C less than 7%. They are checking their BS daily, will which are reviewed at the office visit. Continue regular routine monitoring of A1C, Microalbumin, Dilated eye exam and Foot exam Jun, Primary hypertension (ICD-10 - I10) This patient is instructed to consume a healthy, low-fat, low-salt diet. They are also encouraged to continue exercise to achieve/maintain a normal BMI. Jun, Mild persistent asthma without complication (ICD-10 - J45.30) No ER visits for AE. Continue LABA/ICS maintenance use. Rare use of STEPHEN, not everyday. Jun, Mixed hyperlipidemia (ICD-10 - E78.2) Instructed on diet and exercise with continued statin therapy.Discussed the beneficial effects of lowering cholesterol in reducing the risk for cerebrovascular and cardiovascular disease. Jun, RANDEE (generalized anxiety disorder) (ICD-10 - F41.1) Healthy diet w exercise. COntinue medical therapy, avoid abrupt d/c of medications Jun, Lumbar spondylosis (ICD-10 - M47.816) The patient is instructed to avoid bending, twisting or lifting. They are to use intermittent heat and ice as needed. They may schedule a massage or gentle manipulation. They may safely use Tylenol as needed. Jun, Primary insomnia (ICD-10 - F51.01) Trazodone has improved his insomnia but he has also stopped drinking beer and developed neck and back pain during sleep. Suggest trial of muscle relaxant in place of Trazodone Jun, Screening PSA (prostate specific antigen) (ICD-10 - Z12.5) [employer] Other 09-01-2023 Evaluation note* Encounter Date Diagnosis Assessment Notes Treatment Notes Treatment Clinical Notes Feb, Type 2 diabetes mellitus with hyperglycemia, without long-term current use of insulin (ICD-10 - E11.65) This patient is following a comprehensive diabetic treatment plan. They are checking their feet daily for calluses and nonhealing ulcers. They are being seen for yearly dilated eye examinations. Goals: SBP less than 130, LDL less than 100, FBS less than 140, AC and A1C less than 7%. They are checking their BS daily, will which are reviewed at the office visit. Continue regular routine monitoring of A1C,] Microalbumin, Dilated eye exam and Foot exam Work does A1C next week - goal < 7%, he will call w/ results Feb, Primary hypertension (ICD-10 - I10) This patient is instructed to consume a healthy, low-fat, low-salt diet. They are also encouraged to continue exercise to achieve/maintain a normal BMI. Feb, Mild persistent asthma without complication (ICD-10 - J45.30) No ER visits for AE Continue avoidance of lung irritants Continue avoidance, treatment of allergies Continue maintenance therapy w/ LABA/ICS Rare use of STEPHEN Feb, Mixed hyperlipidemia (ICD-10 - E78.2) Instructed on diet and exercise with continued statin therapy.Discussed the beneficial effects of lowering cholesterol in reducing the risk for cerebrovascular and cardiovascular disease. Feb, RANDEE (generalized anxiety disorder) (ICD-10 - F41.1) Healthy diet, exercise and keep active. Instructed on relaxation exercises, calming activities. Proper sleep routine beneficial Avoid stimulants Feb, Lumbar spondylosis (ICD-10 - M47.816) The patient is instructed to avoid bending, twisting or lifting. They are to use intermittent heat and ice as needed. They may schedule a massage or gentle manipulation. They may safely use Tylenol as needed. Feb, Primary insomnia (ICD-10 - F51.01) Consistent sleep routine, avoid TV, phone, computer and exercise prior to bedtime. Continue TRazodone, which has been beneficial [employer] Other 06-23-2023 Evaluation note* Encounter Date Diagnosis Assessment Notes Treatment Notes Treatment Clinical Notes Nov, Allergic contact dermatitis due to plants, except food (ICD-10 - L23.7) [employer] Other 01-20-2023 Evaluation note* Encounter Date Diagnosis Assessment Notes Treatment Notes Treatment Clinical Notes Jun, Essential hypertension (ICD-10 - I10) This patient is instructed to consume a healthy, low-fat, low-salt diet. They are also encouraged to continue exercise to achieve/maintain a normal BMI. Jun, Wellness examination (ICD-10 - Z00.00) Healthy diet and exercise. Reviewed age-appropriate preventive testing recommended. Jun, Mild persistent asthma without complication (ICD-10 - J45.30) Continue maintenance LABA/ICS. Occasional use of STEPHEN and no visits to the ER/Hospital since last OV Jun, Type 2 diabetes mellitus with hyperglycemia, without long-term current use of insulin (ICD-10 - E11.65) This patient is following a comprehensive diabetic treatment plan. They are checking their feet daily for calluses and nonhealing ulcers. They are being seen for yearly dilated eye examinations. Goals: SBP less than 130, LDL less than 100, FBS less than 140, AC and A1C less than 7%. They are checking their BS daily, will which are reviewed at the office visit. Jun, Hyperlipidemia type II (ICD-10 - E78.01) Diet and exercise with continued statin therapy. Jun, Eczema of both hands (ICD-10 - L30.9) Avoid excessive washing, use moisturizers and topical steroids for eczema rash Jun, Primary insomnia (ICD-10 - F51.01) Consistent sleep routine, avoid naps, avoid stimulants Jun, Pes equinovarus (ICD-10 - Q66.00) Recommend shoe inserts to prevent callus formation and to ease pain. [place] [employer] Other 03-03-2021 NoteOPERATIVE NOTE OPERATION DATE: 08/24/2020 PROCEDURE NAME: Colonoscopy to the cecum. PREOPERATIVE DIAGNOSIS: Screening examination. POSTOPERATIVE DIAGNOSIS: Normal inspection of the entire colon into the cecum. MEDICATIONS USED: Propofol as per the Anesthesia Team. PROCEDURE DESCRIPTION: Patient placed in left lateral decubitus position. The Olympus 180 colonoscope inserted into the rectum then advanced under direct vision through the entire colon into the cecum. No abnormalities were seen. There was no polyp or neoplasm. The cecum was reached and inspected. The endoscope was slowly withdrawn. FINAL DIAGNOSIS: Normal colonoscopy. RECOMMENDATION: Repeat colonoscopy for screening purposes in 10 years. CC: Waylon Byers DO. [facility] Signed and Approved by: DR QING VELEZ 08/31/2020 08:02:00St. [facility]Evaluation noteNo InformationNor[facility] [employer] Other Evaluation noteNoray [facility] memorial hospital [employer] Other Evaluation note* Diagnosis Onset Date Resolution Status Essential hypertension acute RANDEE (generalized anxiety disorder) acute Hypercholesterolemia acute Lumbar spondylosis acute Primary insomnia acute Type 2 diabetes mellitus with hyperglycemia acute [facility] Work Phone: Evaluation note* Diagnosis Onset Date Resolution Status Admit Date Essential hypertension acute Ja nuary 2024 8:22am RANDEE (generalized anxiety disorder) a cute July 10, 2024 8:22am Hypercholesterolemia acute 2024 8:22am Low back pain acute June 8:22am Lumbar spondylosis acute Junuar 2024 8:22am Primary insomnia acute July 10, 2024 8:22am Screening PSA (prostate spec ific antigen) acute July 10 8:22am Type 2 diabetes mellitus wit h hyperglycemia acute July 10 8:22am Wellness examination acute 2024 8:22am [facility] Work Phone: History general Narrative - Reported* Type Description Date Medical History Eczema, dyshidrotic Medical History Type 2 diabetes davey itus with hyperglycemia, without long-term current use of insulin Medical History Hyperlipidemia type II Medical History Essential hypertension Medical History Mild persistent asthma without c omplication Medical History Acute actinic otitis externa, ri t ear Medical History Screening PSA (prostate specific antigen) Medical History Diverticulitis Medical History Primary osteoarthritis of right hand Medical History Primary osteoarthritis of left h and Medical History RANDEE (generalized anxiety disorde r) Medical History Depression screening Medical History Allergic contact dermatitis due to plant Medical History RUQ abdominal pain Medical History Plantar fascial fibromatosis Surgical History COLONOSCOPY Hospitalization History SEE SURGICAL HX [facility] [employer] [facility] [employer] Other History general Narrative - Reported* Type Description Date Medical History Eczema, dyshidrotic Medical History Type 2 diabetes davey itus with hyperglycemia, without long-term current use of insulin Medical History Hyperlipidemia type II Medical History Essential hypertension Medical History Mild persistent asthma without c omplication Medical History Acute actinic otitis externa, ri t ear Medical History Screening PSA (prostate specific antigen) Medical History Diverticulitis Medical History Primary osteoarthritis of right hand Medical History Primary osteoarthritis of left h and Medical History RANDEE (generalized anxiety disorde r) Medical History Depression screening Medical History Allergic contact dermatitis due to plant Medical History RUQ abdominal pain Medical History Plantar fascial fibromatosis Surgical History COLONOSCOPY 08/2020 Hospitalization History SEE SURGICAL HX [employer] Other Hospital Discharge instructionsAmbulatory Orders* Referral to Pain Management Location: None [facility] Work Phone: Summary Purpose Family History Relationship Condition Age at Onset Recorded Date/T kleber Not Specified Malignant neoplasm Unknown Diabetes mellitus Unknown Relationship Condition Age at Onset Recorded Date/T kleber mother Malignant neoplasm Unknown Diabetes mellitus Unknown Advance Directives Advance Directive Response Recorded Date/ Time Advance Directives No July 23, 2023 10:11am Advance Directive Response Recorded Date/ Time Advance Directives No July 23, 2023 9:11am Chief Complaint and Reason for Visit Chief Complaint Amb Documentation 4 Month Check Up Reason for Visit Essential hypertensi on RANDEE (generalized anxiety disorder) Hypercholesterolemia Lumbar spondylosis Primary insomnia Type 2 diabetes mellitus with hyperglycemia Chief Complaint 3 month f/u Reason for Visit Essential hypertensi on RANDEE (generalized anxiety disorder) Hypercholesterolemia Lumbar spondylosis Primary insomnia Type 2 diabetes mellitus with hyperglycemia Chief Complaint Admit Date Wellness July 10, 2024 8 :22am Reason for Visit Admit Date Essential hypertension July 10 8:22am RANDEE (generalized anxiety disorder) Janua ry 2024 8:22am Hypercholesterolemia July 10, 2024 8:22am Low back pain July 10, 2024 8 :22am Lumbar spondylosis July 10, 2024 8 :22am Primary insomnia July 10, 2024 8 :22am Screening PSA (prostate specific antigen ) July 10, 2024 8:22am Type 2 diabetes mellitus with hyperglyce hazel July 10, 2024 8:22am Wellness examination July 10, 2024 8:22am Additional Source Comments (unrecognized sect ion and content) No Status Records Found INFORMATION SOURCE (unrecogn ized section and content) DATE CREATED AUTHOR 07/26/2021 [employer] REASON FOR VISIT (unrecogniz ed section and content) 4 MONTH FOLLOW UPNo Informat ionPoison Ivypoison ivy4 month Follow upA!C resultsWellnessLab results Care Teams (unrecognized sec tion and content) Team Status: Active Member Role Status Dates Waylon Byers DO Primary Care Provider Active Team Status: Inactive Member Role Status Dates Waylon Byers DO Primary Care Provide r, Attending Provider Active Start: March 09, 2024 End: March 09, 2024 Team Status: Active Member Role Status Dates Waylon Byers , DO Primary Care Provider Active Start: August 22, 2023 Jennifer Beard DANIEL Attending Provider Active Start : August 22, 2023 Team Status: Inactive Member Role Status Dates Waylon Byers , DO Primary Care Provide r, Attending Provider Active Start: November 08, 2023 End: November 08, 2023 Team Status: Inactive Member Role Status Dates Waylon Byers DO Primary Care Provide r, Attending Provider Active Start: July 10, 2024 End: July 10, 2024 Goals (unrecognized section and content) Goals may be documented in a n alternate section FOR RECORDS PERTAINING TO PATIENTS WHO ARE OR HAVE BEEN ENROLLED IN A CHEMICAL DEPENDENCY/SUBSTANCEABUSE PROGRAM, SOME INFORMATION MAY BE OMITTED. This clinical summary was aggregated from multiple sources. Caution should be exercised in using it in the provision of clinical care. This summary normalizes information from multiple sources, and as a consequence, information in this document may materially change the coding, format and clinical context of patient data. In addition, data may be omitted in some cases. CLINICAL DECISIONS SHOULD BE BASED ON THE PRIMARY CLINICAL RECORDS. [facility] [employer] [facility]. provides no warranty or guarantee of the accuracy or completeness of information in this document.
[2024-07-10 09:56] LABS: Basophils Absolute Auto 0.1 10^3/uL (0.0-0.1); Basophils Percent Auto 1.3 % (0.2-2.0); Eosinophils Absolute Auto 0.3 10^3/uL (0.0-0.7); Eosinophils Percent Auto 4.6 % (0.9-7.0); Estimated Average Glucose 154 mg/dL; Hematocrit 44.1 % (42.0-54.0); Hemoglobin 14.7 g/dL (14.0-18.0); Immature Granulocytes Abs Auto 0.03 10^3/uL (0.00-0.03); Immature Granulocytes Pct Auto 0.5 % (0.0-0.5); Lymphocytes Absolute Auto 1.6 10^3/uL (1.2-3.8); Lymphocytes Percent Auto 29.7 % (20.5-60.0); Mean Corpuscular HGB Conc 33.3 g/dL (29.9-35.2); Mean Corpuscular Hemoglobin 31.5 pg (25.9-34.0); Mean Corpuscular Volume 94.6 fL (80.0-94.0); Mean Platelet Volume 9.9 fL (9.5-13.5); Monocytes Absolute Auto 0.9 10^3/uL (0.3-0.8); Monocytes Percent Auto 16.2 % (1.7-12.0); Neutrophils Absolute Auto 2.6 10^3/uL (1.4-6.5); Neutrophils Percent Auto 47.7 % (43.0-75.0); Platelet Count 221 10^3/uL (150-450); Red Blood Count 4.66 10^6/uL (4.70-6.10); Red Cell Distribution Width 13.8 % (11.0-15.0); White Blood Count 5.5 10^3/uL (4.0-11.0)
[2024-07-10 09:59] LABS: Alanine Aminotransferase 53 U/L (16-63); Albumin Level 3.9 g/dL (3.4-5.0); Alkaline Phosphatase 83 U/L (46-116); Anion Gap 11.9; Aspartate Amino Transferase 33 U/L (15-37); BUN Creatinine Ratio 15.3; Bilirubin Total 0.4 mg/dL (0.2-1.0); Calcium 9.1 mg/dL (8.5-10.1); Carbon Dioxide 30.1 mmol/L (21.0-32.0); Chloride 102 mmol/L (98-107); Chol HDL Ratio 4.9; Cholesterol 232 mg/dL (<=200); Estimated GFR (African America >60 (>=60 mL/min/1.73m^2); Estimated GFR (Non-African Ame >60 (>=60 mL/min/1.73m^2); Globulin 3.8 g/dL; Glucose 140 mg/dL (74-106); HDL Cholesterol 47 mg/dL (40-60); Sodium 140 mmol/L (136-145); Total Protein 7.7 g/dL (6.4-8.2); Triglycerides 303 mg/dL (<=150); VLDL CHOLESTEROL 60.6 mg/dL
[2024-07-10 10:10] LABS: Prostate Specific Antigen Scrn 1.15 ng/mL (<=4.00)
[2024-07-10 11:18] LABS: Creatinine Urine Random 114.49 mg/dL (20.00-300.00); Microalbum Creatinine Ratio Ur 127.5 mg/g (0.0-29.9); Microalbumin Urine Random 14.6 mg/dL (<=30.0)
== END 2024-07-10 09:11 | disposition home or self-care (01) ==
LOC: LAB 09:12
PROVIDERS: PCP Internal Medicine; Visit Provider Internal Medicine
DX: Z00.00 Encounter for general adult medical examination without abnormal findings (principal); M47.816 Spondylosis without myelopathy or radiculopathy, lumbar region; M54.50 Low back pain, unspecified; M51.369 Other intervertebral disc degeneration, lumbar region without mention of lumbar back pain or lower extremity pain
CPT/HCPCS: 36415; 72114; 80053; 80061; 82043; 82570; 83036; 85025; G0103

== ENCOUNTER 2024-07-27 12:50 | Outpatient (OUT) | payer OTHER, SELFPAY ==
--- OUTSIDE RECORDS SUMMARY | 2024-07-27 13:12 | XMS_ITS | CCD ---
Author Organization [facility] Care Team Providers Care Scalloper Name Role Phone FREDRICK, DR PHILIP Admitting [...] TAB PO Daily July 10, 2024 12:00am [place] 8-Trz-Hfn-Fish Oil (Fish Oil) 60-90-500 mg capsule (1 source) Start: 07-10-2024 take 1 capsule by mouth once daily [place] 4-Nrp-Zar-Fish Oil (Fish Oil) 60-90-500 mg capsule Active [...] Drug Class(es) Dates Sig (Normalized) Sig (Original) [id number] 200 actuat albuterol 0.09 mg/actuat metered dose [...] / neomycin 3.5 mg/ml / polymyxin b [id number] unt/ml otic suspension (1 source) Aminoglycoside Antibacterial, Polymyxin-class Antibacterial, Corticosteroid Start: 04-27-2024 End: 07-10-2024 Oyksosxa-Mzraewzhl-As 3.5-10,000-1 mg/mL-unit/mL-% drops,suspension Discontinued 4 DROPS OTIC [...] Comprehensive Metabolic Pane emmett 01-30-2024 Albumin [Mass/Vol] 4.712851 g/dL Normal 3.4-5.0 g/dL [facility] Other ALP [Catalytic activity/Vol] 94 U/L Normal 46-116 U/L [facility] [employer] Other ALT [Catalytic activity/Vol] 58 U/L Normal 16-63 U/L [facility] [employer] Other Anion gap [Moles/Vol] 10.6 mmol/L [facility] Other AST [Catalytic activity/Vol] 28 U/L Normal 15-37 U/L [facility] Other Bilirubin [Mass/Vol] 0.7577960 mg/dL Normal 0.2-1.0 mg /dL [facility] [employer] Other Calcium [Mass/Vol] 9.9552305 mg/dL Normal 8.5-10.1 mg/ dL [facility] [employer] Other Chloride [Moles/Vol] 103 mmol/L Normal 98-107 mmol/L [facility] [employer] Other CO2 [Moles/Vol] 30.80094148 mmol/L Normal 21.0-3 2.0 mmol/L [facility] [employer] Other Creatinine [Mass/Vol] 0.77232784 mg/dL Low 0.70-1.30 mg/dL [facility] [employer] Other Glucose [Mass/Vol] 114 mg/dL High 74-106 mg/dL [facility] Other Potassium [Moles/Vol] 3.08554478 mmol/L Normal 3.5-5.1 mmol/L [facility] Other Protein [Mass/Vol] 8.735870 g/dL Normal 6.4-8.2 g/dL [facility] Other Sodium [Moles/Vol] 140 mmol/L Normal 136-145 mmol/L No [facility] [employer] Other Urea nitrogen [Mass/Vol] 9.4907232 mg/dL Normal 7.0-18.0 mg/dL [facility] [employer] Other Urea nitrogen/Creatinine [Mass ratio] 13.0 mg/mg [facility] [employer] Other Comprehensive Metabolic Panel 4.0 g/dL [facility] [employer] Other Comprehensive Metabolic Panel 1.0 [facility] [employer] Other Comprehensive Metabolic Panel see note [facility] Other Comprehensive Metabolic Panel >60 >=60 [facility] [employer] Other Lipid Panelon 07-23-2023 Cholesterol [Mass/Vol] 166 mg/dL <=200 mg/dL [facility] [employer] Other Cholesterol in HDL [Mass/Vol] 44 mg/dL Normal 40-60 mg/dL [facility] Other Triglyceride [Mass/Vol] 114 mg/dL <=150 mg/dL [facility] Other Lipid Panel 99.2 mg/dL [facility] Other Lipid Panel 22.8 mg/dL [facility] Other Lipid Panel 3.8 [facility] Other PSA SCREENINGon 07-23-2023 PSA SCREENING 1.10 ng/mL <=4.00 ng/mL [facility] [employer] Other Comprehensive Metabolic Pane emmett 07-13-2022 Albumin [Mass/Vol] 4.1 g/dL [facility] [employer] Other Calcium [Mass/Vol] 9.9 mg/dL [facility] Other Chloride [Moles/Vol] 101 mmol/L [facility] [employer] Other CO2 [Moles/Vol] 30.6 mmol/L [facility] [employer] Other Creatinine [Mass/Vol] 0.65 mg/dL [facility] [employer] Other Creatinine [Mass/Vol] 21.5 mg/dL [facility] Other Glucose [Mass/Vol] 135 mg/dL [facility] Other Potassium [Moles/Vol] 4.2 mmol/L [facility] Other Sodium [Moles/Vol] 139 mmol/L [facility] Other Urea nitrogen [Mass/Vol] 14.0 mg/dL [facility] Other Comprehensive Metabolic Panel [facility] Other Comprehensive Metabolic Panel >60 [employer] Other Comprehensive Metabolic Panel 7.8 [facility] Other Comprehensive Metabolic Panel 3.7 [employer] Other CBC AUTO DIFFon 07-21-2021 BASO # 0.1 103/ul Normal 0[facility]0-0.1 [facility] Comment on above: Performed By: #### C BC #### [facility] [address] [place] [address] Dr. Iliana Condon Basophils/100 WBC (Bld) 1.1 % Normal 0.2-2.0 [facility] Comment on above: Performed By: #### C BC #### [facility] [address] [place] [address] Dr. Iliana Condon EO # 0.2 103/ul Normal 0.0-0.7 [facility] Comment on above: Performed By: #### C BC #### [facility] [address] [place] [address] Dr. Iliana Condon Eosinophils/100 WBC (Bld) 4.2 % Normal 0.9-7.0 [facility] Comment on above: Performed By: #### C BC #### [facility] [address] [place] [address] Dr. Iliana Condon Erythrocyte distribution width (RBC) [Ratio] 13.2 % Normal 11.0-15.0 [facility] Comment on above: Performed By: #### C BC #### [facility] [address] [place] [address] Dr. Iliana Condon Hematocrit (Bld) [Volume fraction] 47.5 % Normal 42.0-54.0 [facility] Comment on above: Performed By: #### C BC #### [facility] [address] [place] [address] Dr. Iliana Condon Hemoglobin (Bld) [Mass/Vol] 16.2 g/dL Normal 14.0-18.0 [facility] Comment on above: Performed By: #### C BC #### [facility] [address] [place] [address] Dr. Iliana Condon IG # 0.01 10e3/ul Normal 0.00-0.03 [facility] Comment on above: Performed By: #### C BC #### [facility] [address] [place] [address] Dr. Iliana Condon IG % 0.2 % Normal 0.0-0.5 [facility] Comment on above: Performed By: #### C BC #### [facility] [address] [place] [address] Dr. Iliana Condon LYMPH # 1.5 103/ul Normal 1.2-3.8 [facility] Comment on above: Performed By: #### C BC #### [facility] [address] [place] [address] Dr. Iliana Condon Lymphocytes/100 WBC (Bld) 28.6 % Normal 20.5-60.0 [facility] Comment on above: Performed By: #### C BC #### [facility] [address] [place] [address] Dr. Iliana Condon MANUAL DIFF REQ NO Normal [facility] Comment on above: Performed By: #### C BC #### [facility] [address] [place] [address] Dr. Iliana Condon MCH (RBC) [Entitic mass] 31.8 pg Normal 25.9-34.0 [facility] Comment on above: Performed By: #### C BC #### [facility] [address] [place] [address] Dr. Iliana Condon MCHC (RBC) [Mass/Vol] 34.1 g/dL Normal 29.9-35.2 [facility] Comment on above: Performed By: #### C BC #### [facility] [address] [place] [address] Dr. Iliana Condon MCV (RBC) [Entitic vol] 93.1 fL Normal 80.0-94.0 [facility] Comment on above: Performed By: #### C BC #### [facility] [address] [address] [address] Iliana Condon MONO # 0.7 103/ul Normal 0.3-0.8 [facility] Comment on above: Performed By: #### C BC #### [facility] [address] [place] [address] Dr. Iliana Condon Monocytes/100 WBC (Bld) 12.6 % Critically high 1.7-12.0 [facility] Comment on above: Performed By: #### C BC #### [facility] [address] [place] [address] Dr. Iliana Condon NEUT # 2.8 103/ul Normal 1.4-6.5 [facility] Comment on above: Performed By: #### C BC #### [facility] [address] [place] [address] Dr. Iliana Condon Neutrophils/100 WBC (Bld) 53.3 % Normal 43.0-75.0 [facility] Comment on above: Performed By: #### C BC #### [facility] [address] [place] [address] Dr. Iliana Condon Platelet mean volume (Bld) [Entitic vol] 9.4 fL Critically low 9.5-13.5 [facility] Comment on above: Performed By: #### C BC #### [facility] [address] [place] [address] Dr. Iliana Condon PLT 224 103/ul Normal 150-450 [facility] Comment on above: Performed By: #### C BC #### [facility] [address] [place] [address] Dr. Iliana Condon RBC 5.10 106/ul Normal 4.70-6.10 [facility] Comment on above: Performed By: #### C BC #### [facility] [address] [place] [address] Dr. Iliana Condon WBC 5.2 103/ul Normal 4.0-11.0 [facility] Comment on above: Performed By: #### C BC #### [facility] [address] [place] [address] Dr. Iliana Condon GLYCOHEMOGLOBIN A1Con 2021 ADA RECOMMENDATION ADA THERAPEUTIC TARGET 6.0 - 7.0 ACTION SUGGESTED > 7.0 Normal [facility] Comment on above: Performed By: #### A 1C #### [facility] [address] [place] [address] Dr. Iliana Condon Glucose [Mass/Vol] 140 mg/dL Normal [facility] Comment on above: Performed By: #### A 1C #### [facility] [address] [place] [address] Dr. Iliana Condon HbA1c (Bld) [Mass fraction] 6.5 % Critically high <=6.0 [facility] Comment on above: Performed By: #### A 1C #### [facility] [address] [place] [address] Dr. Iliana Condon LIPID PROFILEon 07-21-2021 CHOL-HDL RATIO NORM SEE BELOW Normal [facility] Comment on above: Result Comment: 3.3 - 4.4 LOW RISK 4.4 - 7.1 AVERAGE RISK 7.1 - 11.0 MODERATE RISK >11.0 HIGH RISK Performed By: #### L IPID, CMP #### [facility] [address] [place] [address] Dr. Iliana Condon Cholesterol [Mass/Vol] 233 mg/dL Critically high <=200 [facility] Comment on above: Performed By: #### L IPID, CMP #### [facility] [address] [place] [address] Dr. Iliana Condon Cholesterol in HDL [Mass/Vol] 57 mg/dL Normal [facility] Comment on above: Performed By: #### L IPID, CMP #### [facility] [address] [address] [address] Iliana Condon Cholesterol in LDL [Mass/Vol] 128.4 mg/dL Normal [facility] Comment on above: Performed By: #### L IPID, CMP #### [facility] [address] [address] [address] Iliana Condon Cholesterol.total/Ch olesterol in HDL [Mass ratio] 4.1 {ratio} Normal [facility] Comment on above: Performed By: #### L IPID, CMP #### [facility] [address] [address] [address] Iliana Condon HDL NORMAL > or = 60 mg/dl - LOW CARDIOVASCULAR RISK <40 mg/dl - HIGH CARDIOVASCULAR RISK Normal [facility] Comment on above: Performed By: #### L IPID, CMP #### [facility] [address] [place] [address] Dr. Iliana Condon LDL CALC NORMAL SEE BELOW Normal [facility] Comment on above: Result Comment: <100 mg/dl OPTIMAL 100 - 129 mg/dl NEAR OR ABOVE OPTIMAL 130 - 159 mg/dl BORDERLINE HIGH 160 - 189 mg/dl HIGH >190 mg/dl VERY HIGH Performed By: #### L IPID, CMP #### [facility] [address] [place] [address] Dr. Iliana Condon Triglyceride [Mass/Vol] 238 mg/dL Critically high <=150 [facility] Comment on above: Performed By: #### L IPID, CMP #### [facility] [address] [address] [address] Iliana Condon VLDL CALC 47.6 mg/dL Normal [facility] Comment on above: Performed By: #### L IPID, CMP #### [facility] [address] [place] [address] Dr. Iliana Condon MICROALBUMIN, RAND URon -2 mALB 21.2 mg/L Normal <=30.0 [facility] Comment on above: Performed By: #### M ALBR #### [facility] [address] [place] [address] Dr. Iliana Condon PROF 14(COMP METB)on 022 Albumin [Mass/Vol] 4.2 g/dL Normal 3.5-5.0 [facility] Comment on above: Performed By: #### L IPID, CMP #### [facility] [address] [address] [address] Iliana Condon Albumin/Globulin [Mass ratio] 1.1 {ratio} Normal [facility] Comment on above: Performed By: #### L IPID, CMP #### [facility] [address] [address] [address] Iliana Condon ALP [Catalytic activity/Vol] 97 U/L Normal 38-126 [facility] Comment on above: Performed By: #### L IPID, CMP #### [facility] [address] [address] [address] Iliana Condon ALT [Catalytic activity/Vol] 62 U/L Normal 21-72 [facility] Comment on above: Performed By: #### L IPID, CMP #### [facility] [address] [address] [address] Iliana Condon Anion gap [Moles/Vol] 13.6 mmol/L Normal [facility] Comment on above: Performed By: #### L IPID, CMP #### [facility] [address] [address] [address] Iliana Condon AST [Catalytic activity/Vol] 34 U/L Normal 17-59 [facility] Comment on above: Performed By: #### L IPID, CMP #### [facility] [address] [address] [address] Iliana Condon Bilirubin [Mass/Vol] 0.6 mg/dL Normal 0.2-1.3 [facility] Comment on above: Performed By: #### L IPID, CMP #### [facility] [address] [address] [address] Iliana Condon Calcium [Mass/Vol] 10.2 mg/dL Normal 8.4-10.2 [facility] Comment on above: Performed By: #### L IPID, CMP #### [facility] [address] [address] [address] Iliana Condon Chloride [Moles/Vol] 100 mmol/L Normal 98-107 [facility] Comment on above: Performed By: #### L IPID, CMP #### [facility] [address] [address] [address] Iliana Condon CO2 [Moles/Vol] 27.2 mmol/L Normal 22.0-30.0 [facility] Comment on above: Performed By: #### L IPID, CMP #### [facility] [address] [address] [address] Iliana Condon Creatinine [Mass/Vol] 0.61 mg/dL Critically low 0.66-1.25 [facility] Comment on above: Performed By: #### L IPID, CMP #### [facility] [address] [place] [address] Dr. Iliana Condon EGFR-AF TONGAN >60 Normal >=60 [facility] Comment on above: Performed By: #### L IPID, CMP #### [facility] [address] [place] [address] Dr. Iliana Condon EGFR-NON AF TONGAN >60 Normal >=60 [facility] Comment on above: Performed By: #### L IPID, CMP #### [facility] [address] [address] [address] Iliana Condon Globulin (S) [Mass/Vol] 3.8 g/dL Normal [facility] Comment on above: Performed By: #### L IPID, CMP #### [facility] [address] [place] [address] Dr. Iliana Condon Glucose [Mass/Vol] 103 mg/dL Normal 74-106 [facility] Comment on above: Performed By: #### L IPID, CMP #### [facility] [address] [address] [address] Iliana Condon Potassium [Moles/Vol] 4.8 mmol/L Normal 3.4-5.0 [facility] Comment on above: Performed By: #### L IPID, CMP #### [facility] [address] [address] [address] Iliana Condon Protein [Mass/Vol] 8.0 g/dL Normal 6.1-8.2 [facility] Comment on above: Performed By: #### L IPID, CMP #### [facility] [address] [place] [address] Dr. Iliana Condon Sodium [Moles/Vol] 136 mmol/L Critically low 137-145 [facility] Comment on above: Performed By: #### L IPID, CMP #### [facility] [address] [place] [address] Dr. Iliana Condon Urea nitrogen [Mass/Vol] 15.0 mg/dL Normal 9.0-20.0 [facility] Comment on above: Performed By: #### L IPID, CMP #### [facility] [address] [place] [address] Dr. Iliana Condon Urea nitrogen/Creatinine [Mass ratio] 24.6 mg/mg Normal [facility] Comment on above: Performed By: #### L IPID, CMP #### [facility] [address] [place] [address] Dr. Iliana Condon Covid-19 PCR ([facility])on 06-24 SARS-CoV-2 (COVID-19) RNA TRISTA+probe Ql (Unsp spec) Not detected Normal NOT DETECTED [facility] Comment on above: Result Comment: This test is not yet approved or cleared by the [place] FDA. When there are no FDA-approved or cleared tests available, and other criteria are met, FDA can make tests available under an emergency access mechanism called an Emergency Use Authorization (EUA). The EUA for this test is supported by the Air Pollution Inspector of Health and Human Service's (HHS's) declaration [...] SARS-CoV-2. Performed By: #### C VDTB #### [facility] [address] [place] [address] [address] Iliana Condon Covid-19 PCR ([facility])on 07-26 SARS-CoV-2 (COVID-19) RNA TRISTA+probe Ql (Unsp spec) Not detected Normal NOT DETECTED [facility] Comment on above: Result Comment: This test is not yet approved or cleared by the [place] FDA. When there are no FDA-approved or cleared tests available, and other criteria are met, FDA can make tests available under an emergency access mechanism called an Emergency Use Authorization (EUA). The EUA for this test is supported by the Air Pollution Inspector of Health and Human Service's (HHS's) declaration [...] SARS-CoV-2. Performed By: #### C VDTB #### [facility] [address] [place] [id number] Renetta Fajardo Vital Signs Date Time Vital Sign Value Performing Clinician Facility 07-10-2024 08:38-0500 Body height 162.56 cm [facility] 07-10-2024 08:38-0500 Body mass index (BMI) [Ratio] 22.8 kg/m2 [facility] 07-10-2024 08:38-0500 Body weight 60.38 kg [facility] 07-10-2024 08:38-0500 Diastolic blood pressure 86 mm[Hg] [facility] 07-10-2024 08:38-0500 Heart rate 93 /min [facility] 07-10-2024 08:38-0500 Respiratory rate 12 /min [facility] 07-10-2024 08:38-0500 Systolic blood pressure 138 mm[Hg] [facility] 03-09-2024 15:47-0400 Body height 162.56 cm [facility] 03-09-2024 15:47-0400 Body mass index (BMI) [Ratio] 22.1 kg/m2 [facility] 03-09-2024 15:47-0400 Body weight 58.57 kg [facility] 03-09-2024 15:47-0400 Diastolic blood pressure 89 mm[Hg] [facility] 03-09-2024 15:47-0400 Heart rate 103 /min [facility] 03-09-2024 15:47-0400 Respiratory rate 12 /min [facility] 03-09-2024 15:47-0400 Systolic blood pressure 139 mm[Hg] [facility] 11-08-2023 10:02-0400 Body height 162.56 cm [facility] 11-08-2023 10:02-0400 Body mass index (BMI) [Ratio] 21.8 kg/m2 [facility] 11-08-2023 10:02-0400 Body weight 57.66 kg [facility] 11-08-2023 10:02-0400 Diastolic blood pressure 83 mm[Hg] [facility] 11-08-2023 10:02-0400 Heart rate 101 /min [facility] 11-08-2023 10:02-0400 Respiratory rate 12 /min [facility] 11-08-2023 10:02-0400 Systolic blood pressure 127 mm[Hg] [facility] 07-23-2023 08:30-0500 Body height 162.56 cm Waylon Ball Other [facility] Other 07-23-2023 08:30-0500 Body mass index (BMI) [Ratio] 20.42 kg/m2 [facility] Ball Other [facility] Other 07-23-2023 08:30-0500 Body weight 53.98 kg Waylon Ball Other [facility] Other 07-23-2023 08:30-0500 Diastolic blood pressure 84 mm[Hg] [facility] Ball Other [facility] Other 07-23-2023 08:30-0500 Respiratory rate 12 /min Way[facility] Ball Other [facility] Other 07-23-2023 08:30-0500 Systolic blood pressure 133 mm[Hg] [facility] Ball Other [facility] Other 2023 09:00-0400 Body height 162.56 cm Waylon Ball Other [facility] Other 2023 09:00-0400 Body mass index (BMI) [Ratio] 21.54 kg/m2 [facility] Ball Other [facility] Other 2023 09:00-0400 Body weight 56.93 kg Waylon Ball Other [facility] Other 2023 09:00-0400 Diastolic blood pressure 80 mm[Hg] [facility] Ball Other [facility] Other 2023 09:00-0400 Respiratory rate 12 /min Waylon Ball Other [facility] Other 2023 09:00-0400 Systolic blood pressure 130 mm[Hg] [facility] Ball Other [facility] Other 12-19-2022 15:45-0400 Body height 162.56 cm Waylon Ball Other [facility] Other 12-19-2022 15:45-0400 Body mass index (BMI) [Ratio] 21.83 kg/m2 Way[facility] Ball Other [facility] Other 12-19-2022 15:45-0400 Body weight 57.7 kg Waylon Ball Other [facility] Other 12-19-2022 15:45-0400 Diastolic blood pressure 84 mm[Hg] [facility] Ball Other [facility] Other 12-19-2022 15:45-0400 Respiratory rate 12 /min Waylon Ball Other [facility] Other 12-19-2022 15:45-0400 Systolic blood pressure 134 mm[Hg] [facility] Ball Other [facility] Other 07-13-2022 09:30-0500 Body height 162.56 cm Waylon Ball Other [facility] Other 07-13-2022 09:30-0500 Body mass index (BMI) [Ratio] 22.04 kg/m2 [facility] Ball Other [facility] Other 07-13-2022 09:30-0500 Body weight 58.24 kg Waylon Ball Other [facility] Other 07-13-2022 09:30-0500 Diastolic blood pressure 76 mm[Hg] [facility] Ball Other [facility] Other 07-13-2022 09:30-0500 Respiratory rate 12 /min Waylon Ball Other [facility] Other 07-13-2022 09:30-0500 Systolic blood pressure 122 mm[Hg] Waylon Ball Other [employer] Other Encounters Encounter Date Encounter Type Care Provider Facility Start: 07-10-2024 End: 07-10-2024 ambulatory [facility] Work Phone: Start: 07-10-2024 End: 07-10-2024 Encounter for general adult medical examination without abnormal findings [facility] Start: 07-10-2024 End: 07-10-2024 Patient encounter procedure [facility] Physician [facility] Work Phone: Start: 07-07-2024 Patient encounter status [facility] Start: 03-09-2024 End: 03-09-2024 ambulatory [facility] Work Phone: Start: 03-09-2024 End: 03-09-2024 Patient encounter procedure [facility] Physician [facility] Work Phone: Start: 11-08-2023 End: 11-08-2023 ambulatory [facility] Work Phone: Start: 11-08-2023 End: 11-08-2023 Patient encounter procedure [facility] Physician [facility] Work Phone: Start: 08-22-2023 Non-patient / Non-visit [facility] Physician [facility] Work Phone: Start: 07-23-2023 End: 07-23-2023 ambulatory Waylon Byers Other [employer] Other Start: 07-23-2023 Encounter for genera l adult medical examination without abnormal findings Waylon Fredrick [facility] Start: 07-23-2023 Periodic preventive med est patient 40-64yrs Waylon Byers [facility] Start: 07-23-2023 Telephone encounter Waylon ARANDA [facility] Start: 02-26-2023 End: 02-26-2023 ambulatory Waylon Byers Other [facility] Other Start: 02-26-2023 Telephone encounter Waylon ARANDA [facility] Start: 2023 End: 2023 ambulatory Waylon Byers Other [facility] Other Start: 2023 Patient encounter procedure Waylon Byers [facility] Start: 12-19-2022 End: 12-19-2022 ambulatory Waylon Byers Other [employer] Other Start: 12-19-2022 Office outpatient vi sit 15 minutes [facility] [facility] Start: 12-18-2022 End: 12-18-2022 ambulatory Waylon Byers Other [employer] Other Start: 12-18-2022 Telephone encounter Waylon Byers [facility] Start: 12-14-2022 End: 12-14-2022 ambulatory Waylon Byers Other [employer] Other Start: 12-14-2022 Telephone encounter Waylon Byers [facility] Start: 07-29-2022 End: 07-29-2022 ambulatory Waylon Byers Other [employer] Other Start: 07-29-2022 Telephone encounter Waylon Byers [facility] Start: 07-13-2022 End: 07-13-2022 ambulatory Waylon [facility] Other [employer] Other Start: 07-13-2022 Encounter for genera l adult medical examination without abnormal findings Waylon Byers [facility] Start: 07-13-2022 Periodic preventive med est patient 40-64yrs Waylon Byers [facility] Start: 07-25-2021 Encounter for genera l adult medical examination without abnormal findings [facility] Start: 07-21-2021 End: 07-22-[address] WAYLON BYERS Facility:[facility] Start: 07-21-2021 End: 07-22-2021 Encounter for general adult medical examination without abnormal findings DR WAYLON BYERS Facility:[facility] Start: 07-07-2021 End: 07-07-[address] WAYLON BYERS Facility:[facility] Start: 06-23-[address] WAYLON BYERS Facili ty:[facility] Start: 08-25-2020 Encounter for preprocedural laboratory examination [facility] Start: 08-24-2020 End: 08-24-[address] QING VELEZ Facility:[facility] Start: 08-20-2020 End: 08-21-[address] QING VELEZ Facility:[facility] Start: 08-20-2020 End: 08-21-2020 Encounter for preprocedural laboratory examination DR QING VELEZ Facility:[facility] Procedures Date Procedure Procedure Detail Performing Clinician Start: 07-21-[address] EDUARDO [place] Comment on above: Performed By: #### P SAS #### [facility] [address] [address] [address] Iliana Condon Depression screening Nany Byers Other Plan of Treatment Date Care Activity Detail Author Start: 07-10-2024 Patient referral [facility] Work Phone: Comprehensive metabo lic 2000 panel - Serum or Plasma [facility] Patient Education Low back pain in adults [facility] Work Phone: Patient referral [facility] Work Phone: XR Lumbar spine Views [facility] ER Immunizations Immunization Date Immunization Notes Care Provider Fa greer 03-09-2024 influenza, seasonal, injectable, preservative free [facility] 2023 influenza, injectabl e, quadrivalent, preservative free Waylon Byers Other [facility] 03-07-2022 influenza virus vaccine, split virus (incl. purified surface antigen) Waylon Byers Other [employer] Other 03-07-2022 influenza virus vaccine, unspecified formulation [facility] 05-27-2020 zoster vaccine, live Benjami n [facility] Other [facility] 03-03-2020 zoster vaccine, live Delmyami n [facility] Other [facility] 02-23-2020 influenza virus vaccine, split virus (incl. purified surface antigen) Waylon Byers Other [facility] [employer] Other 02-23-2020 influenza virus vaccine, unspecified formulation [facility] Payers Date Payer Category Payer Unknown [id number] 1970 Unknown [id number] [id number] [id number] 1970 Unknown [id number] [id number] 1970 Unknown [id number] [id number] 1970 Unknown [id number] 2.16.84 [id number] 1959 Self-pay 1959 Unknown [id number] Unknown [id number] [id number] [id number] Social History Date Type Detail Facility Sex Assigned At [facility] [employer] Other Start: 08-22-2023 End: 08-22-2023 Tobacco smoking status NHIS Ex-smoker (finding) [facility] Start: 1970 Sex Assigned At Male F [facility] Start: 07-10-2024 Sex Male (finding) [facility] Medical Equipment Procedure Code Equipment Code Equipment [...] PSA (prostate specific antigen) (ICD-10 - Z12.5) [employer] Other 09-01-2023 Evaluation note* Encounter Date Diagnosis [...] bedtime. Continue TRazodone, which has been beneficial [employer] Other 06-23-2023 Evaluation note* Encounter Date Diagnosis Assessment Notes Treatment Notes Treatment Clinical Notes Nov, Allergic contact dermatitis due to plants, except food (ICD-10 - L23.7) [employer] Other 01-20-2023 Evaluation note* Encounter Date Diagnosis [...] prevent callus formation and to ease pain. [place] [employer] Other 03-03-2021 NoteOPERATIVE NOTE OPERATION DATE: 08/24/2020 [...] in 10 years. CC: Waylon Byers DO. [facility] Signed and Approved by: DR QING VELEZ 08/31/2020 08:02[facility]00[facility] Other Evaluation note* Diagnosis Onset Date Resolution Status Essential hypertension acute RANDEE (generalized anxiety disorder) acute Hypercholesterolemia acute Lumbar spondylosis acute Primary insomnia acute Type 2 diabetes mellitus with hyperglycemia acute [facility] Work Phone: Evaluation note* Diagnosis Onset Date [...] 10 8:22am Wellness examination acute 2024 8:22am [facility] Work Phone: History general Narrative - Reported* [...] History COLONOSCOPY Hospitalization History SEE SURGICAL HX [facility] [employer] Other [facility] History general Narrative - Reported* Type [...] COLONOSCOPY 08/2020 Hospitalization History SEE SURGICAL HX [employer] Other Hospital Discharge instructionsAmbulatory Orders* Referral to Pain Management Location: None [facility] Work Phone: Summary Purpose Family History Relationship [...] BE BASED ON THE PRIMARY CLINICAL RECORDS. [facility] [employer] [facility]. provides no warranty or guarantee of the accuracy or completeness of information in this document.
--- NOTE | 2024-07-27 13:53 | P.CN_ITS ---
Consult Note: HPI Data of Consult Patient: new to practice Consult date: 07/27/24 Requesting Physician: Roc Romo MD Primary Care Provider: Waylon Alcala DO Consult Narrative Reason for consult: low back, hip pain Narrative: 54yom who presents for evaluation. longstanding history of low back pain with ra diation into right hip. lumbar xr shows multilevel degenerative changes and spondylosis in lower lumbar spine. has engaged in >6 weeks of chiropractic therapy, without lasting benefit. uses otc pain meds. denies adverse med side effects. cc:: CC: Roc Romo MD Review of Systems ROS Status of ROS 10 or more systems reviewed and unremark able except as noted in history and below Exam Narrative Exam Narrative: Psych-alert and oriented x 3. Attentive and appropriate, constitutionally normal, displays normal mood and affect per situation. There are no obvious deficits in memory, reasoning, or intellect.? Skin-no obvious rashes, bruising, erythema noted to the patient's area of pain.? Extremities- extremities are warm with minimal edema and palpable pulses. Lumbar-tenderness to palpation noted in the lumbar spine and paraspinal musculature. Pain is elicited with flexion, extension, and lateral rotation of the lumbar spine. Range of motion is diminished with these motions. Facet loading maneuvers are positive. Strength-noted to be unremarkable with the exception of decreased strength rated at 4 out of 5 in right quadriceps femoris. Sensory-no notable sensory deficits in the bilateral lower extremities to touch or pinprick in all dermatomal distributions with the exception to decreased sensation to the right L4, 5 dermatomal distribution Coordination remains intact.? Gait remains non-antalgic. Assessment and Plan Assessment and Plan (1) Lumbar stenosis with neurogenic claudication: Plan 54yom who presents for evaluation. failed conservative measures, as noted. imaging reviewed, as noted. given symptoms and imaging, prudent to obtain advanced imaging with lumbar mri without contrast. he is in agreement. meds reviewed, will trial celebrex 200mg bid prn. follow up after imaging.
== END 2024-07-27 12:51 | disposition home or self-care (01) ==
PROVIDERS: PCP Internal Medicine; Visit Provider Anesthesiology
DX: M48.062 Spinal stenosis, lumbar region with neurogenic claudication (principal)
CPT/HCPCS: G0463

== ENCOUNTER 2024-08-10 15:35 | Emergency (ER) | payer OTHER, SELFPAY ==
[2024-08-10 15:39] VITALS: BP 180/84; PULSE 89; TEMP 36.6; O2SAT 98; BMI 24.6
--- NOTE | 2024-08-10 15:44 | XR_ITS ---
The [address] [address] Patient Name: ASHLIE PETTY MRN: [id number] date: 1970 Sex: M Assigned Patient Location: ER Current Patient Location: ER Accession/Order Number: [id number] Exam Date: 08/10/2024 15:55 Report Date: 08/10/2024 16:27 At the request of: NICOLA FONTAINE Procedure: XR humerus RT EXAM: XR humerus RT, XR shoulder RT min 2V, XR forearm RT 2V HISTORY: injury COMPARISON: None. TECHNIQUE: 2 views of the right humerus. 2 views of the right forearm. 3 views of the right shoulder. FINDINGS: Right shoulder The bones are intact. The alignment is anatomic. There are mild degenerative changes of the joints. The soft tissues are grossly unremarkable. Right humerus There is a displaced fracture of the olecranon, likely involving the coronoid process. Small elbow joint effusion. Right forearm XR/XR humerus RT IMPRESSION: No acute osseous abnormality of the right humerus or right shoulder. Displaced fracture of the olecranon, likely involving the coronoid process with small elbow joint effusion. Electronically authenticated by: CIERRA WAGNER Date: 08/10/2024 16:27
--- NOTE | 2024-08-10 15:44 | XR_ITS ---
The [address] [address] Patient Name: ASHLIE PETTY MRN: [id number] date: 1970 Sex: M Assigned Patient Location: ER Current Patient Location: ER Accession/Order Number: [id number] Exam Date: 08/10/2024 15:55 Report Date: 08/10/2024 16:27 At the request of: NICOLA FONTAINE Procedure: XR forearm RT 2V EXAM: XR humerus RT, XR shoulder RT min 2V, XR forearm RT 2V HISTORY: injury COMPARISON: None. TECHNIQUE: 2 views of the right humerus. 2 views of the right forearm. 3 views of the right shoulder. FINDINGS: Right shoulder The bones are intact. The alignment is anatomic. There are mild degenerative changes of the joints. The soft tissues are grossly unremarkable. Right humerus There is a displaced fracture of the olecranon, likely involving the coronoid process. Small elbow joint effusion. Right forearm XR/XR forearm RT 2V IMPRESSION: No acute osseous abnormality of the right humerus or right shoulder. Displaced fracture of the olecranon, likely involving the coronoid process with small elbow joint effusion. Electronically authenticated by: CIERRA WAGNER Date: 08/10/2024 16:27
--- NOTE | 2024-08-10 15:44 | XR_ITS ---
The [address] [address] Patient Name: ASHLIE PETTY MRN: [id number] date: 1970 Sex: M Assigned Patient Location: ER Current Patient Location: ER Accession/Order Number: [id number] Exam Date: 08/10/2024 15:55 Report Date: 08/10/2024 16:27 At the request of: NICOLA FONTAINE Procedure: XR shoulder RT min 2V EXAM: XR humerus RT, XR shoulder RT min 2V, XR forearm RT 2V HISTORY: injury COMPARISON: None. TECHNIQUE: 2 views of the right humerus. 2 views of the right forearm. 3 views of the right shoulder. FINDINGS: Right shoulder The bones are intact. The alignment is anatomic. There are mild degenerative changes of the joints. The soft tissues are grossly unremarkable. Right humerus There is a displaced fracture of the olecranon, likely involving the coronoid process. Small elbow joint effusion. Right forearm XR/XR shoulder RT min 2V IMPRESSION: No acute osseous abnormality of the right humerus or right shoulder. Displaced fracture of the olecranon, likely involving the coronoid process with small elbow joint effusion. Electronically authenticated by: CIERRA WAGNER Date: 08/10/2024 16:27
--- OUTSIDE RECORDS SUMMARY | 2024-08-10 16:07 | XMS_ITS | CCD ---
Author Organization [facility] Care Team Providers Care Bakery Clerk Name Role Phone FREDRICK, DR PHILIP Admitting Unavailable BALL, DR PIHLIP Attending Unavailable BALL, DR PHILIP Primary Care Unavailable BALL, DR PHILIP Consulting Unavailable AGUSTIN, DR LONGO Admitting Unavailable AGUSTIN, DR LONGO Attending Unavailable FREDRICK, DR PHILIP Primary Care Unavailable AGUSTIN, DR LONGO Consulting Unavailable ARAM, NATHANIEL Consulting Unavailable FREDRICK, DR PHILIP Admitting Unavailable BALL, DR PHILIP Attending Unavailable BALL, DR PHILIP Primary Care Unavailable AGUSTIN, DR LONGO Admitting Unavailable AGUSTIN, DR LONGO Attending Unavailable FREDRICK, DR PHILIP Primary Care Unavailable AGUSTIN, DR LONGO Consulting Unavailable FREDRICK, DR PHILIP Admitting Unavailable FREDRICK, DR PHILIP Attending Unavailable BALL, DR PHILIP Primary Care Unavailable BALL, DR PHILIP Consulting Unavailable Fredrick, Waylon Unavailable Clarissa CRANDALL, Roc Luna Attending Unavailable Medications Current Medications Medication Drug Class(es) [...] Active 1 INH INHALATION Twice daily 180 90 July 10, 2024 8:55am Start: 11-06-2023 End: [...] tablet Active 20 MG PO Daily 90 90 July 10, 2024 8:56am take 1 [...] TAB PO Daily July 10, 2024 12:00am [place] 8-Ihn-Ntf-Fish Oil (Fish Oil) 60-90-500 mg capsule (1 source) Start: 07-10-2024 take 1 capsule by mouth once daily [place] 7-Ife-Msk-Fish Oil (Fish Oil) 60-90-500 mg capsule Active [...] Drug Class(es) Dates Sig (Normalized) Sig (Original) [id number] 200 actuat albuterol 0.09 mg/actuat metered dose [...] / neomycin 3.5 mg/ml / polymyxin b [id number] unt/ml otic suspension (1 source) Aminoglycoside Antibacterial, Polymyxin-class Antibacterial, Corticosteroid Start: 04-27-2024 End: 07-10-2024 [id number]-Mnlhqikhh-Bk 3.5-10,000-1 mg/mL-unit/mL-% drops,suspension Discontinued 4 DROPS OTIC [...] Reference Range Facility Comprehensive Metabolic Pane emmett 07-23-2023 Albumin [Mass/Vol] 4.101741 g/dL Normal 3.4-5.0 g/dL [facility] [place] Other ALP [Catalytic activity/Vol] 94 U/L Normal 46-116 U/L [facility] [place] Other ALT [Catalytic activity/Vol] 58 U/L Normal 16-63 U/L [facility] [place] Other Anion gap [Moles/Vol] 10.6 mmol/L [facility] [place] Other AST [Catalytic activity/Vol] 28 U/L Normal 15-37 U/L [facility] [place] Other Bilirubin [Mass/Vol] 0.2527853 mg/dL Normal 0.2-1.0 mg /dL [facility] [place] Other Calcium [Mass/Vol] 9.4361185 mg/dL Normal 8.5-10.1 mg/ dL [facility] [place] Other Chloride [Moles/Vol] 103 mmol/L Normal 98-107 mmol/L [facility] [place] Other CO2 [Moles/Vol] 30.16071542 mmol/L Normal 21.0-3 2.0 mmol/L [place] [facility] Other Creatinine [Mass/Vol] 0.92174026 mg/dL Low 0.70-1.30 mg/dL [place] [facility] Other Glucose [Mass/Vol] 114 mg/dL High 74-106 mg/dL [facility] [place] Other Potassium [Moles/Vol] 3.83438998 mmol/L Normal 3.5-5.1 mmol/L [place] [facility] Other Protein [Mass/Vol] 8.185003 g/dL Normal 6.4-8.2 g/dL [employer] Other Sodium [Moles/Vol] 140 mmol/L Normal 136-145 mmol/L [facility] [place] Other Urea nitrogen [Mass/Vol] 9.3903108 mg/dL Normal 7.0-18.0 mg/dL [facility] [place] Other Urea nitrogen/Creatinine [Mass ratio] 13.0 mg/mg [facility] [place] Other Comprehensive Metabolic Panel 4.0 g/dL [facility] [place] Other Comprehensive Metabolic Panel 1.0 [facility] [place] Other Comprehensive Metabolic Panel see note [facility] [place] Other Comprehensive Metabolic Panel >60 >=60 [facility] [place] Other Lipid Panelon 07-23-2023 Cholesterol [Mass/Vol] 166 mg/dL <=200 mg/dL [facility] [place] Other Cholesterol in HDL [Mass/Vol] 44 mg/dL Normal 40-60 mg/dL [facility] [place] Other Triglyceride [Mass/Vol] 114 mg/dL <=150 mg/dL [facility] [place] Other Lipid Panel 99.2 mg/dL [facility] [place] Other Lipid Panel 22.8 mg/dL [facility] [place] Other Lipid Panel 3.8 [facility] [place] Other PSA SCREENINGon 07-23-2023 PSA SCREENING 1.10 ng/mL <=4.00 ng/mL [facility] [place] Other Comprehensive Metabolic Pane emmett 07-13-2022 Albumin [Mass/Vol] 4.1 g/dL [facility] [place] Other Calcium [Mass/Vol] 9.9 mg/dL [facility] [place] Other Chloride [Moles/Vol] 101 mmol/L [facility] [place] Other CO2 [Moles/Vol] 30.6 mmol/L [facility] [place] Other Creatinine [Mass/Vol] 0.65 mg/dL [facility] [place] Other Creatinine [Mass/Vol] 21.5 mg/dL [employer] Other Glucose [Mass/Vol] 135 mg/dL [employer] Other Potassium [Moles/Vol] 4.2 mmol/L [employer] Other Sodium [Moles/Vol] 139 mmol/L [employer] Other Urea nitrogen [Mass/Vol] 14.0 mg/dL [employer] Other Comprehensive Metabolic Panel [employer] Other Comprehensive Metabolic Panel >60 [employer] Other Comprehensive Metabolic Panel 7.8 [employer] Other Comprehensive Metabolic Panel 3.7 [employer] Other CBC AUTO DIFFon 07-21-2021 BASO # 0.1 103/ul Normal 0.0-0.1 [facility] Comment on above: Performed By: #### C BC #### [facility] [address] [place] [address] Dr. Iliana Condon Basophils/100 WBC (Bld) 1.1 % Normal 0.2-2.0 [facility] Comment on above: Performed By: #### C BC #### [facility] [address] [place] [address] Dr. Iliana Condon EO # 0.2 103/ul Normal 0.0-0.7 [facility] Comment on above: Performed By: #### C BC #### [facility] [address] [address] [address] Iliana Condon Eosinophils/100 WBC (Bld) 4.2 % Normal 0.9-7.0 [facility] Comment on above: Performed By: #### C BC #### [facility] [address] [place] [address] Dr. Iliana Condon Erythrocyte distribution width (RBC) [Ratio] 13.2 % Normal 11.0-15.0 [facility] Comment on above: Performed By: #### C BC #### [facility] [address] [place] [address] Dr. Iliana Condon Hematocrit (Bld) [Volume fraction] 47.5 % Normal 42.0-54.0 [facility] Comment on above: Performed By: #### C BC #### [facility] [address] [place] [address] Dr. Iliana Condon Hemoglobin (Bld) [Mass/Vol] 16.2 g/dL Normal 14.0-18.0 [facility] Comment on above: Performed By: #### C BC #### [facility] [address] [place] [address] Dr. Iliana Condon IG # 0.01 10e3/ul Normal 0.00-0.03 [facility] Comment on above: Performed By: #### C BC #### [facility] [address] [place] [address] Dr. Iliana Condon IG % 0.2 % Normal 0.0-0.5 [facility] Comment on above: Performed By: #### C BC #### [facility] [address] [place] [address] Dr. Ilinaa Condon LYMPH # 1.5 103/ul Normal 1.2-3.8 [facility] Comment on above: Performed By: #### C BC #### [facility] [address] [place] [address] Dr. Iliana Condon Lymphocytes/100 WBC (Bld) 28.6 % Normal 20.5-60.0 [facility] Comment on above: Performed By: #### C BC #### [facility] [address] [place] [address] Dr. Iliana Condon MANUAL DIFF REQ NO Normal [facility] Comment on above: Performed By: #### C BC #### [facility] [address] [place] [address] Dr. Iliana Condon MCH (RBC) [Entitic mass] 31.8 pg Normal 25.9-34.0 [facility] Comment on above: Performed By: #### C BC #### [facility] [address] [address] [address] Iliana Condon MCHC (RBC) [Mass/Vol] 34.1 g/dL Normal 29.9-35.2 [facility] Comment on above: Performed By: #### C BC #### [facility] [address] [place] [address] Dr. Iliana Condon MCV (RBC) [Entitic vol] 93.1 fL Normal 80.0-94.0 [facility] Comment on above: Performed By: #### C BC #### [facility] [address] [place] [address] Dr. Iliana Condon MONO # 0.7 103/ul Normal 0.3-0.8 [facility] Comment on above: Performed By: #### C BC #### [facility] [address] [place] [address] Dr. Iliana Condon Monocytes/100 WBC (Bld) 12.6 % Critically high 1.7-12.0 [facility] Comment on above: Performed By: #### C BC #### [facility] [address] [place] [address] Dr. Iliana Condon NEUT # 2.8 103/ul Normal 1.4-6.5 [facility] Comment on above: Performed By: #### C BC #### [facility] [address] [place] [address] Dr. Iliana Condon Neutrophils/100 WBC (Bld) 53.3 % Normal 43.0-75.0 [facility] Comment on above: Performed By: #### C BC #### [facility] [address] [place] [address] Dr. Iliana Condon Platelet mean volume (Bld) [Entitic vol] 9.4 fL Critically low 9.5-13.5 [facility] Comment on above: Performed By: #### C BC #### [facility] [address] [place] [address] Dr. Iliana Condon PLT 224 103/ul Normal 150-450 [facility] Comment on above: Performed By: #### C BC #### [facility] [address] [place] [address] Dr. Iliana Condon RBC 5.10 106/ul Normal 4.70-6.10 [facility] Comment on above: Performed By: #### C BC #### [facility] [address] [place] [address] Dr. Iliana Condon WBC 5.2 103/ul Normal 4.0-11.0 [facility] Comment on above: Performed By: #### C BC #### [facility] [address] [place] [address] Dr. Iliana Condon GLYCOHEMOGLOBIN A1Con 2021 ADA RECOMMENDATION ADA THERAPEUTIC TARGET 6.0 - 7.0 ACTION SUGGESTED > 7.0 Normal [facility] Comment on above: Performed By: #### A 1C #### [facility] [address] [place] [address] Dr. Iliana Condon Glucose [Mass/Vol] 140 mg/dL Normal [facility] Comment on above: Performed By: #### A 1C #### [facility] [address] [place] [address] Dr. Iliana Condon HbA1c (Bld) [Mass fraction] 6.5 % Critically high <=6.0 [facility] Comment on above: Performed By: #### A 1C #### [facility] [address] [place] [address] Dr. Iliana Condon LIPID PROFILEon 07-21-2021 CHOL-HDL RATIO NORM SEE BELOW Normal [facility] Comment on above: Result Comment: 3.3 - 4.4 LOW RISK 4.4 - 7.1 AVERAGE RISK 7.1 - 11.0 MODERATE RISK >11.0 HIGH RISK Performed By: #### L IPID, CMP #### [facility] [address] [place] [address] Dr. Iliana Condon Cholesterol [Mass/Vol] 233 mg/dL Critically high <=200 [facility] Comment on above: Performed By: #### L IPID, CMP #### [facility] [address] [place] [address] Dr. Iliana Condon Cholesterol in HDL [Mass/Vol] 57 mg/dL Normal [facility] Comment on above: Performed By: #### L IPID, CMP #### [facility] [address] [address] [address] Iliana Condon Cholesterol in LDL [Mass/Vol] 128.4 mg/dL Normal [facility] Comment on above: Performed By: #### L IPID, CMP #### [facility] [address] [place] [address] Dr. Iliana Condon Cholesterol.total/Ch olesterol in HDL [Mass ratio] 4.1 {ratio} Normal [facility] Comment on above: Performed By: #### L IPID, CMP #### [facility] [address] [place] [address] Dr. Iliana Condon HDL NORMAL > or = 60 mg/dl - LOW CARDIOVASCULAR RISK <40 mg/dl - HIGH CARDIOVASCULAR RISK Normal [facility] Comment on above: Performed By: #### L IPID, CMP #### [facility] [address] [place] [address] Dr. Iliana Condon LDL CALC NORMAL SEE BELOW Normal [facility] Comment on above: Result Comment: <100 mg/dl OPTIMAL 100 - 129 mg/dl NEAR OR ABOVE OPTIMAL 130 - 159 mg/dl BORDERLINE HIGH 160 - 189 mg/dl HIGH >190 mg/dl VERY HIGH Performed By: #### L IPID, CMP #### [facility] [address] [place] [address] Dr. Iliana Condon Triglyceride [Mass/Vol] 238 mg/dL Critically high <=150 [facility] Comment on above: Performed By: #### L IPID, CMP #### [facility] [address] [place] [address] Dr. Iliana Condon VLDL CALC 47.6 mg/dL Normal [facility] Comment on above: Performed By: #### L IPID, CMP #### [facility] [address] [place] [address] Dr. Iliana Condon MICROALBUMIN, RAND URon 01-2 mALB 21.2 mg/L Normal <=30.0 [facility] Comment on above: Performed By: #### M ALBR #### [facility] [address] [address] [address] Iliana Condon PROF 14(COMP METB)on 022 Albumin [Mass/Vol] 4.2 g/dL Normal 3.5-5.0 [facility] Comment on above: Performed By: #### L IPID, CMP #### [facility] [address] [place] [address] Dr. Iliana Condon Albumin/Globulin [Mass ratio] 1.1 {ratio} Normal [facility] Comment on above: Performed By: #### L IPID, CMP #### [facility] [address] [place] [address] Dr. Iliana Condon ALP [Catalytic activity/Vol] 97 U/L Normal 38-126 [facility] Comment on above: Performed By: #### L IPID, CMP #### [facility] [address] [place] [address] Dr. Iliana Condon ALT [Catalytic activity/Vol] 62 U/L Normal 21-72 [facility] Comment on above: Performed By: #### L IPID, CMP #### [facility] [address] [place] [address] Dr. Iliana Condon Anion gap [Moles/Vol] 13.6 mmol/L Normal [facility] Comment on above: Performed By: #### L IPID, CMP #### [facility] [address] [place] [address] Dr. Iliana Condon AST [Catalytic activity/Vol] 34 U/L Normal 17-59 [facility] Comment on above: Performed By: #### L IPID, CMP #### [facility] [address] [place] [address] Dr. Iliana Condon Bilirubin [Mass/Vol] 0.6 mg/dL Normal 0.2-1.3 [facility] Comment on above: Performed By: #### L IPID, CMP #### [facility] [address] [place] [address] Dr. Iliana Condon Calcium [Mass/Vol] 10.2 mg/dL Normal 8.4-10.2 [facility] Comment on above: Performed By: #### L IPID, CMP #### [facility] [address] [address] [address] Iliana Condon Chloride [Moles/Vol] 100 mmol/L Normal 98-107 [facility] Comment on above: Performed By: #### L IPID, CMP #### [facility] [address] [address] [address] Iliana Condon CO2 [Moles/Vol] 27.2 mmol/L Normal 22.0-30.0 [facility] Comment on above: Performed By: #### L IPID, CMP #### [facility] [address] [address] [address] Iliana Condon Creatinine [Mass/Vol] 0.61 mg/dL Critically low 0.66-1.25 [facility] Comment on above: Performed By: #### L IPID, CMP #### [facility] [address] [address] [address] Iliana Condno EGFR-AF TUVALUAN >60 Normal >=60 [facility] Comment on above: Performed By: #### L IPID, CMP #### [facility] [address] [address] [address] Iliana Condon EGFR-NON AF TUVALUAN >60 Normal >=60 [facility] Comment on above: Performed By: #### L IPID, CMP #### [facility] [address] [place] [address] Dr. Iliana Condon Globulin (S) [Mass/Vol] 3.8 g/dL Normal [facility] Comment on above: Performed By: #### L IPID, CMP #### [facility] [address] [address] [address] Iliana Condon Glucose [Mass/Vol] 103 mg/dL Normal 74-106 [facility] Comment on above: Performed By: #### L IPID, CMP #### [facility] [address] [address] [address] Iliana Condon Potassium [Moles/Vol] 4.8 mmol/L Normal 3.4-5.0 [facility] Comment on above: Performed By: #### L IPID, CMP #### [facility] [address] [place] [address] Dr. Iliana Condon Protein [Mass/Vol] 8.0 g/dL Normal 6.1-8.2 [facility] Comment on above: Performed By: #### L IPID, CMP #### [facility] [address] [place] [address] Dr. Iliana Condon Sodium [Moles/Vol] 136 mmol/L Critically low 137-145 [facility] Comment on above: Performed By: #### L IPID, CMP #### [facility] [address] [place] [address] Dr. Iliana Condon Urea nitrogen [Mass/Vol] 15.0 mg/dL Normal 9.0-20.0 [facility] Comment on above: Performed By: #### L IPID, CMP #### [facility] [address] [place] [address] Dr. Iliana Condon Urea nitrogen/Creatinine [Mass ratio] 24.6 mg/mg Normal [facility] Comment on above: Performed By: #### L IPID, CMP #### [facility] [address] [place] [address] Dr. Iliana Condon Covid-19 PCR ([facility])on 06-24 SARS-CoV-2 (COVID-19) RNA TRISTA+probe Ql (Unsp spec) Not detected Normal NOT DETECTED [facility] Comment on above: Result Comment: This test is not yet approved or cleared by the [place] FDA. When there are no FDA-approved or cleared tests available, and other criteria are met, FDA can make tests available under an emergency access mechanism called an Emergency Use Authorization (EUA). The EUA for this test is supported by the [place] of Health and Human Service's (HHS's) declaration [...] SARS-CoV-2. Performed By: #### C VDTB #### [facility] [address] [place] [address] [id number] [address] Iliana Condon Covid-19 PCR ([facility])on 07-26 SARS-CoV-2 (COVID-19) RNA TRISTA+probe Ql (Unsp spec) Not detected Normal NOT DETECTED [facility] Comment on above: Result Comment: This test is not yet approved or cleared by the [place] FDA. When there are no FDA-approved or cleared tests available, and other criteria are met, FDA can make tests available under an emergency access mechanism called an Emergency Use Authorization (EUA). The EUA for this test is supported by the [place] of Health and Human Service's (HHS's) declaration [...] SARS-CoV-2. Performed By: #### C VDTB #### [facility] [address] [place] [id number] Renetta Fajardo Vital Signs Date Time Vital Sign Value Performing Clinician Facility 07-10-2024 08:38-0500 Body height 162.56 cm [facility] 07-10-2024 08:38-0500 Body mass index (BMI) [Ratio] 22.8 kg/m2 [facility] 07-10-2024 08:38-0500 Body weight 60.38 kg [facility] 07-10-2024 08:38-0500 Diastolic blood pressure 86 mm[Hg] [facility] 07-10-2024 08:38-0500 Heart rate 93 /min [facility] 07-10-2024 08:38-0500 Respiratory rate 12 /min [facility] 07-10-2024 08:38-0500 Systolic blood pressure 138 mm[Hg] [facility] 03-09-2024 15:47-0400 Body height 162.56 cm [facility] 03-09-2024 15:47-0400 Body mass index (BMI) [Ratio] 22.1 kg/m2 [facility] 03-09-2024 15:47-0400 Body weight 58.57 kg [facility] 03-09-2024 15:47-0400 Diastolic blood pressure 89 mm[Hg] [facility] 03-09-2024 15:47-0400 Heart rate 103 /min [facility] 03-09-2024 15:47-0400 Respiratory rate 12 /min [facility] 03-09-2024 15:47-0400 Systolic blood pressure 139 mm[Hg] [facility] 11-08-2023 10:02-0400 Body height 162.56 cm [facility] 11-08-2023 10:02-0400 Body mass index (BMI) [Ratio] 21.8 kg/m2 [facility] 11-08-2023 10:02-0400 Body weight 57.66 kg [facility] 11-08-2023 10:02-0400 Diastolic blood pressure 83 mm[Hg] [facility] 11-08-2023 10:02-0400 Heart rate 101 /min [facility] 11-08-2023 10:02-0400 Respiratory rate 12 /min [facility] 11-08-2023 10:02-0400 Systolic blood pressure 127 mm[Hg] [facility] 07-23-2023 08:30-0500 Body height 162.56 cm Waylon Ball [facility] [employer] Other 07-23-2023 08:30-0500 Body mass index (BMI) [Ratio] 20.42 kg/m2 [facility] [employer] Other 07-23-2023 08:30-0500 Body weight 53.98 kg Waylon Ball [facility] [employer] Other 07-23-2023 08:30-0500 Diastolic blood pressure 84 mm[Hg] Waylon [facility] [employer] Other 07-23-2023 08:30-0500 Respiratory rate 12 /min Waylon Ball [facility] [employer] Other 07-23-2023 08:30-0500 Systolic blood pressure 133 mm[Hg] Waylon [facility] [employer] Other 2023 09:00-0400 Body height 162.56 cm Waylon [facility] [employer] Other 2023 09:00-0400 Body mass index (BMI) [Ratio] 21.54 kg/m2 [facility] [employer] Other 2023 09:00-0400 Body weight 56.93 kg Waylon [facility] [employer] Other 2023 09:00-0400 Diastolic blood pressure 80 mm[Hg] [facility] [employer] Other 2023 09:00-0400 Respiratory rate 12 /min [facility] [employer] Other 2023 09:00-0400 Systolic blood pressure 130 mm[Hg] Waylon [facility] [employer] Other 12-19-2022 15:45-0400 Body height 162.56 cm Waylon [facility] [employer] Other 12-19-2022 15:45-0400 Body mass index (BMI) [Ratio] 21.83 kg/m2 [facility] [employer] Other 12-19-2022 15:45-0400 Body weight 57.7 kg Waylon Ball [facility] [employer] Other 12-19-2022 15:45-0400 Diastolic blood pressure 84 mm[Hg] Waylon [facility] [employer] Other 12-19-2022 15:45-0400 Respiratory rate 12 /min Waylon [facility] [employer] Other 12-19-2022 15:45-0400 Systolic blood pressure 134 mm[Hg] Way[facility] [employer] Other 07-13-2022 09:30-0500 Body height 162.56 cm Waylon [facility] [employer] Other 07-13-2022 09:30-0500 Body mass index (BMI) [Ratio] 22.04 kg/m2 [facility] [employer] Other 07-13-2022 09:30-0500 Body weight 58.24 kg Waylon Ball [facility] [employer] Other 07-13-2022 09:30-0500 Diastolic blood pressure 76 mm[Hg] Way[facility] [employer] Other 07-13-2022 09:30-0500 Respiratory rate 12 /min [facility] [employer] Other 07-13-2022 09:30-0500 Systolic blood pressure 122 mm[Hg] Waylon [facility] [employer] Other Encounters Encounter Date Encounter Type Care Provider Facility Start: 07-27-2024 End: 07-27-2024 ambulatory Roc Romo MD Facility: [facility] Start: 07-10-2024 End: 07-10-2024 ambulatory [facility] Work Phone: Start: 07-10-2024 End: 07-10-2024 Encounter for general adult medical examination without abnormal findings [facility] Start: 07-10-2024 End: 07-10-2024 Patient encounter procedure [facility] Hospital Physician [facility] Work Phone: Start: 07-07-2024 Patient encounter status [facility] Start: 03-09-2024 End: 03-09-2024 ambulatory [facility] Work Phone: Start: 03-09-2024 End: 03-09-2024 Patient encounter procedure [facility] Physician [facility] Work Phone: Start: 11-08-2023 End: 11-08-2023 ambulatory [facility] Work Phone: Start: 11-08-2023 End: 11-08-2023 Patient encounter procedure [facility] Physician [facility] Work Phone: Start: 08-22-2023 Non-patient / Non-visit [facility] Physician [facility] Work Phone: Start: 07-23-2023 End: 07-23-2023 ambulatory Waylon Byers Other [employer] Other Start: 07-23-2023 Encounter for genera l adult medical examination without abnormal findings Waylon Byers [facility] Start: 07-23-2023 Periodic preventive med est patient 40-64yrs Waylon Byers [facility] Start: 07-23-2023 Telephone encounter Waylon Byers [facility] Start: 02-26-2023 End: 02-26-2023 ambulatory Waylon Byers Other [employer] Other Start: 02-26-2023 Telephone encounter Waylon Byers [facility] Start: 2023 End: 2023 ambulatory Waylon Fredrick Other [employer] Other Start: 2023 Patient encounter procedure Waylon Byers [facility] Start: 12-19-2022 End: 12-19-2022 ambulatory Waylon Fredrick Other [employer] Other Start: 12-19-2022 Office outpatient vi sit 15 minutes Waylon Byers [facility] Start: 12-18-2022 End: 12-18-2022 ambulatory Waylon Fredrick Other [employer] Other Start: 12-18-2022 Telephone encounter Waylon Byers [facility] Start: 12-14-2022 End: 12-14-2022 ambulatory Waylon Byers Other [employer] Other Start: 12-14-2022 Telephone encounter Waylon Byers [facility] Start: 07-29-2022 End: 07-29-2022 ambulatory Waylon Byers Other [employer] Other Start: 07-29-2022 Telephone encounter Waylon Byers [facility] Start: 07-13-2022 End: 07-13-2022 ambulatory Waylon Fredrick Other [employer] Other Start: 07-13-2022 Encounter for genera l adult medical examination without abnormal findings Waylon Byers [facility] Start: 07-13-2022 Periodic preventive med est patient 40-64yrs Waylon Byers [facility] Start: 07-25-2021 Encounter for genera l adult medical examination without abnormal findings DR WAYLON BYERS [facility] Start: 07-21-2021 End: 07-22-[address] WAYLON BYERS Facility: Start: 07-21-2021 End: 07-22-2021 Encounter for general adult medical examination without abnormal findings DR WAYLON BYERS Facility:[facility] Start: 07-07-2021 End: 07-07-[address] WAYLON BYERS Facility:[facility] Start: 06-23-[address] WAYLON BYERS Facili ty:[facility]1 Start: 08-25-2020 Encounter for preprocedural laboratory examination DR QING VELEZ [facility] Start: 08-24-2020 End: 08-24-[address] QING VELEZ Facility:[facility] Start: 08-20-2020 End: 08-21-[address] QING VELEZ Facility:[facility] Start: 08-20-2020 End: 08-21-2020 Encounter for preprocedural laboratory examination DR QING VELEZ Facility:[facility] Procedures Date Procedure Procedure Detail Performing Clinician Start: 07-21-[address] EDUARDO IN [place] Comment on above: Performed By: #### [facility] #### [facility] [address] [place] [address] Dr. Iliana Condon Depression screening Nany Byers Other Plan of Treatment Date Care Activity Detail Author Start: 07-10-2024 Patient referral [facility] Work Phone: Comprehensive metabo lic 2000 panel - Serum or Plasma [facility] Patient Education Low back pain in adults [facility] Work Phone: Patient referral [facility] Work Phone: XR Lumbar spine Views [facility] Immunizations Immunization Date Immunization Notes Care Provider Fa greer 03-09-2024 influenza, seasonal, injectable, preservative free [facility] 2023 influenza, injectabl e, quadrivalent, preservative free Waylon Byers Other [facility] 03-07-2022 influenza virus vaccine, split virus (incl. purified surface antigen) Waylon Byres Other [employer] Other 03-07-2022 influenza virus vaccine, unspecified formulation [facility] 05-27-2020 zoster vaccine, live Nany Byers Other [facility] 03-03-2020 zoster vaccine, live Benjami andrew Byers Other [facility] 02-23-2020 influenza virus vaccine, split virus (incl. purified surface antigen) Waylon Byers Other [facility] Other 02-23-2020 influenza virus vaccine, unspecified formulation [facility] Payers Date Payer Category Payer Unknown 1970 Unknown [id number] [id number] 1970 Unknown [id number] 2.16.84 [id number] 1970 Unknown [id number] 2.16.84 [id number] 1970 Unknown [id number] 2.16.84 [id number] 1970 Unknown [id number] 2.16.84 [id number] 1970 Unknown [id number] [id number] 1959 Self-pay 1959 Unknown [id number] Unknown [id number] 2.16.8 [id number] Social History Date Type Detail Facility Sex Assigned At [facility] [employer] [facility] Other Start: 08-22-2023 End: 08-22-2023 Tobacco smoking status NHIS Ex-smoker (finding) [facility] Start: 1970 Sex Assigned At Male [facility] Start: 07-10-2024 Sex Male (finding) [facility] Medical Equipment Procedure Code Equipment Code [...] PSA (prostate specific antigen) (ICD-10 - Z12.5) [employer] Other 09-01-2023 Evaluation note* Encounter Date Diagnosis [...] bedtime. Continue TRazodone, which has been beneficial [employer] Other 06-23-2023 Evaluation note* Encounter Date Diagnosis Assessment Notes Treatment Notes Treatment Clinical Notes Nov, Allergic contact dermatitis due to plants, except food (ICD-10 - L23.7) [employer] Other 01-20-2023 Evaluation note* Encounter Date Diagnosis [...] prevent callus formation and to ease pain. [employer] Other 03-03-2021 NoteOPERATIVE NOTE OPERATION DATE: 08/24/2020 [...] in 10 years. CC: Waylon Byers DO. [facility] Signed and Approved by: DR QING VELEZ 08/31/2020 08:02:00[facility]No[facility] Other Evaluation noteNort [facility] Other Evaluation note* Diagnosis Onset Date Resolution Status Essential hypertension acute RANDEE (generalized anxiety disorder) acute Hypercholesterolemia acute Lumbar spondylosis acute Primary insomnia acute Type 2 diabetes mellitus with hyperglycemia acute [facility] Work Phone: Evaluation note* Diagnosis Onset Date Resolution Status Admit Date Essential hypertension acute Ja nuary 2024 8:22am RANDEE (generalized anxiety disorder) a cute July 10, 2024 8:22am Hypercholesterolemia acute 2024 8:22am Low back pain acute June 8:22am Lumbar spondylosis acute Junua2024 8:22am Primary insomnia acute July 10, 2024 8:22am Screening PSA (prostate spec ific antigen) acute July 10 8:22am Type 2 diabetes mellitus wit h hyperglycemia acute July 10 8:22am Wellness examination acute 2024 8:22am [facility] Work Phone: [facility] general Narrative - Reported* Type Description Date Medical History Eczema, dyshidrotic Medical History Type 2 diabetes davey itus with hyperglycemia, without long-term current use of insulin Medical History Hyperlipidemia type II Medical History Essential hypertension Medical History Mild persistent asthma without c omplication Medical History Acute actinic otitis externa, ri ght ear Medical History Screening PSA (prostate specific antigen) Medical History Diverticulitis Medical History Primary osteoarthritis of right hand Medical History Primary osteoarthritis of left h and Medical History RANDEE (generalized anxiety disorde r) Medical History Depression screening Medical History Allergic contact dermatitis due to plant Medical History RUQ abdominal pain Medical History Plantar fascial fibromatosis Surgical History COLONOSCOPY Hospitalization History SEE SURGICAL HX [facility] Other [facility] Other [facility] general Narrative - Reported* Type Description Date Medical History Eczema, dyshidrotic Medical History Type 2 diabetes davey itus with hyperglycemia, without long-term current use of insulin Medical History Hyperlipidemia type II Medical History Essential hypertension Medical History Mild persistent asthma without c omplication Medical History Acute actinic otitis externa, ri ght ear Medical History Screening PSA (prostate specific [...] COLONOSCOPY 08/2020 Hospitalization History SEE SURGICAL HX [facility] Other Hospital Discharge instructionsAmbulatory Orders* Referral to Pain Management Location: None [facility] Work Phone: Summary Purpose Family History No Family History Records Found Relationship Condition Age at Onset Recorded Date/T kleber Not Specified Malignant neoplasm Unknown Diabetes mellitus Unknown Relationship Condition Age at Onset Recorded Date/T kleber mother Malignant neoplasm Unknown Diabetes mellitus Unknown Advance Directives No Advanced Directives Records Found Advance Directive Response Recorded Date/ Time Advance [...] sect ion and content) No Status Records FoundNo Status Records Found INFORMATION SOURCE (unrecogn ized section and content) DATE CREATED AUTHOR 07/26/2021 [facility] DATE CREATED AUTHOR AUTHOR'S CANDIE ATCASSIE 07/30/2024 [facility] REASON FOR VISIT (unrecogniz ed section and content) 4 MONTH FOLLOW UPNo Informat ionPoison Ivypoison ivy4 month Follow upA!C resultsWellnessLab results Care Teams (unrecognized sec tion and content) Team Status: Active Member Role Status Dates Waylon Byers , Primary Care Provider Active Team Status: Inactive Member Role Status Dates Waylon Byers , Primary Care Provide r, Attending Provider Active Start: March 09, 2024 End: March 09, 2024 Team Status: Active Member Role Status Dates Waylon Byers , Primary Care Provider Active Start: August 22, 2023 DANIEL Holcomb Attending Provider Active Start : August 22, 2023 Team Status: Inactive Member Role Status Dates Waylon Byers , Primary Care Provide r, Attending Provider Active Start: November 08, 2023 End: November 08, 2023 Team Status: Inactive Member Role Status Dates Waylon Byers , Primary Care Provide r, Attending Provider Active [...] BE BASED ON THE PRIMARY CLINICAL RECORDS. [facility] [employer] [facility]. provides no warranty or guarantee of the accuracy or completeness of information in this document.
--- NOTE | 2024-08-10 18:37 | ED_ITS ---
HPI HPI - Extremity Injury (Upper) General Chief Complaint: Extremity Injury, Upper Stated Complaint: FALL-ELBOW INJURY Time Seen by Provider: 08/10/24 17:58 Source: patient Mode of arrival: walk-in Limitations: no limitations History of Present Illness HPI narrative: Patient is a 54-year-old male who presents to the emergency department for the evaluation of an injury to the right elbow. He states he slipped on ice about 3 hours ago. He complains of significant pain in the right elbow with radiation down the forearm. He had no head injury or other associated injuries. He is right-hand dominant. He denies peripheral paresthesias. No medications taken prior to arrival. Related Data Home Medications ?Medication ?Instructions ?Recorded ?Confirmed albuterol sulfate 90 mcg/actuation 2 inh inhalation Q8H PRN shortness 07/27/24 07/27/24 aerosol inhaler of breath or wheezing ascorbic acid (vitamin C) 500 mg 500 mg PO DAILY 07/27/24 07/27/24 tablet (Vitamin C) atorvastatin 80 mg tablet 80 mg PO DAILY 07/27/24 07/27/24 diphenhydramine HCl 25 mg tablet 25 mg PO DAILY PRN sleep 07/27/24 07/27/24 ezetimibe 10 mg tablet 10 mg PO DAILY 07/27/24 07/27/24 fluticasone 100 mcg-salmeterol 50 1 inh inhalation BID 07/27/24 07/27/24 mcg/dose blistr powdr for inhalation (Wixela Inhub) levocetirizine 5 mg tablet 5 mg PO DAILY 07/27/24 07/27/24 lisinopril 20 mg tablet 20 mg PO DAILY 07/27/24 07/27/24 omega 1-fzt-hfm-fish oil 1,200 mg 1 cap PO DAILY 07/27/24 07/27/24 (144 mg-216 mg) capsule (Fish Oil) tizanidine 4 mg tablet 4 mg PO DAILY PRN muscle spasticity 07/27/24 07/27/24 trazodone 50 mg tablet 50 mg PO DAILY 07/27/24 07/27/24 zinc 50 mg tablet 50 mg PO DAILY 07/27/24 07/27/24 Previous Rx's ?Medication ?Instructions ?Recorded celecoxib 200 mg capsule (Celebrex) 200 mg PO BID PRN pain #60 caps 07/27/24 ibuprofen 600 mg tablet 600 mg PO QID PRN pain #20 tabs 08/10/24 oxycodone-acetaminophen 5 mg-325 1 tab PO Q6H PRN pain 4 days #15 08/10/24 mg tablet (Percocet) tabs Allergies Allergy/AdvReac Type Severity Reaction Status Date / Time No Known Drug Allergies Allergy Verified 07/27/24 14:36 Opioid HPI Opioid Management Most Recent Pain and Opioid Data: No Data to Display Review of Systems ROS Constitutional Denies: fever or chills Ears, nose, mouth, and throat Denies: throat pain or nasal congestion Respiratory Denies: shortness of breath Gastrointestinal Denies: nausea or vomiting Integumentary/Breast Denies: rash Neurological Denies: numbness in extremities or weakness in extremities Hematologic/Lymphatic Denies: easy bruising or easy bleeding PFSH PFS Medical History (Updated 08/10/24 @ 18:33 by BRO Cuadra) Osteoarthritis ?M19.90 - Unspecified osteoarthritis, unspecified site (ICD-10) Diabetes ?E11.9 - Type 2 diabetes mellitus without complications (ICD-10) Asthma ?J45.909 - Unspecified asthma, uncomplicated (ICD-10) HTN (hypertension) ?I10 - Essential (primary) hypertension (ICD-10) Social History Little interest or pleasure in doing things: not at all Feeling down, depressed, or hopeless: not at all Exam Narrative Exam Narrative: Gen.: Awake, alert, in no distress Head: Normocephalic, atraumatic ENT: Moist mucous membranes Respiratory: No respiratory distress Extremities: Mild swelling noted of the right posterior elbow with pain on flexion and extension of the right elbow. Normal semiconductor package symbol stamper strength in the right hand. 2+ right radial pulse. Psych: Normal mood and affect Neuro: No focal neuro deficit Skin: Warm, dry, intact Constitutional Vital Signs, click to edit/add: Last Vital Signs Temp 97.8 F 08/10/24 15:39 Pulse 89 08/10/24 15:39 Resp 18 08/10/24 15:39 BP 180/84 H 08/10/24 15:39 Pulse Ox 98 08/10/24 15:39 O2 Del Method Room Air 08/10/24 15:39 Course Vital Signs Vital signs: Vital Signs Temperature 97.8 F 08/10/24 15:39 Pulse Rate 89 08/10/24 15:39 Respiratory Rate 18 08/10/24 15:39 Blood Pressure 180/84 H 08/10/24 15:39 Pulse Oximetry 98 08/10/24 15:39 Oxygen Delivery Method Room Air 08/10/24 15:39 Temperature 97.8 F 08/10/24 15:39 Pulse Rate 89 08/10/24 15:39 Respiratory Rate 18 08/10/24 15:39 Blood Pressure 180/84 H 08/10/24 15:39 Pulse Oximetry 98 08/10/24 15:39 Oxygen Delivery Method Room Air 08/10/24 15:39 MDM - Extremity Injury (Upper) MDM Narrative Medical decision making narrative: X-rays show a fracture of the coronoid process of the olecranon, appears to be an avulsion. Patient is neurovascularly intact pre and post posterior splint application with sling. I discussed the case with Dr. Tavares who recommended regular orthopedic follow-up. Percocet given in the ER and discharged home with Percocet and NSAIDs. Return to the ER if symptoms change or worsen SUPERVISED APC VISIT, PHYSICIAN ATTESTATION: Based on the medical record the care appears appropriate. ? Medical Records Attestation: I reviewed the patient's medical records. Imaging Data XR shoulder, humerus, forearm: Attestation: I have reviewed the pertinent imaging results. Radiologist's impression: ITS Impressions Forearm X-Ray 08/10/24 15:44 IMPRESSION: No acute osseous abnormality of the right humerus or right shoulder. Displaced fracture of the olecranon, likely involving the coronoid process with small elbow joint effusion. Electronically authenticated by: CIERRA WAGNER Date: 08/10/2024 16:27 Humerus X-Ray 08/10/24 15:44 IMPRESSION: No acute osseous abnormality of the right humerus or right shoulder. Displaced fracture of the olecranon, likely involving the coronoid process with small elbow joint effusion. Electronically authenticated by: CIERRA WAGNER Date: 08/10/2024 16:27 Shoulder X-Ray 08/10/24 15:44 IMPRESSION: No acute osseous abnormality of the right humerus or right shoulder. Displaced fracture of the olecranon, likely involving the coronoid process with small elbow joint effusion. Electronically authenticated by: CIERRA WAGNER Date: 08/10/2024 16:27 Discharge Plan Discharge Chief Complaint: Extremity Injury, Upper Clinical Impression: Closed fracture of right olecranon process Patient Disposition: Home, Self-Care Time of Disposition Decision: 18:32 Condition: Good Prescriptions / Home Meds: New ibuprofen 600 mg tablet 600 mg PO QID PRN (Reason: pain) Qty: 20 0RF oxycodone-acetaminophen [Percocet] 5-325 mg tablet 1 tab PO Q6H PRN (Reason: pain) 4 Days Qty: 15 0RF Rx Instructions: DX: S52.031 No Action celecoxib [Celebrex] 200 mg capsule 200 mg PO BID PRN (Reason: pain) Qty: 60 2RF fluticasone propion-salmeterol [Wixela Inhub] 100-50 mcg/dose blister with device 1 inh inhalation BID albuterol sulfate 90 mcg/actuation HFA aerosol inhaler 2 inh inhalation Q8H PRN (Reason: shortness of breath or wheezing) lisinopril 20 mg tablet 20 mg PO DAILY ezetimibe 10 mg tablet 10 mg PO DAILY atorvastatin 80 mg tablet 80 mg PO DAILY tizanidine 4 mg tablet 4 mg PO DAILY PRN (Reason: muscle spasticity) trazodone 50 mg tablet 50 mg PO DAILY levocetirizine 5 mg tablet 5 mg PO DAILY diphenhydramine HCl 25 mg tablet 25 mg PO DAILY PRN (Reason: sleep) ascorbic acid (vitamin C) [Vitamin C] 500 mg tablet 500 mg PO DAILY omega 6-lpl-qvg-fish oil [Fish Oil] 1,200 (144-216) mg capsule 1 cap PO DAILY zinc 50 mg tablet 50 mg PO DAILY Print Language: Occitan Instructions: Elbow Fracture (ED) Referrals: Waylon Alcala DO [Primary Care Provider] - 1 week John Amaro DO [Physician] - As soon as possible ([phone]) Joselito Tavares MD [Physician] - 08/17/24 10:30 am
[2024-08-10] MEDS: OXYCODONE HCL/ACETAMINOPHEN 5MG/325MG 1 TAB PO (18:38)
== END 2024-08-10 18:49 | disposition home or self-care (01) ==
PROVIDERS: Emergency Provider Emergency Medicine; PCP Internal Medicine
DX: S52.021A Displaced fracture of olecranon process without intraarticular extension of right ulna, initial encounter for closed fracture (principal); W00.0XXA Fall on same level due to ice and snow, initial encounter
CPT/HCPCS: 73030; 73060; 73090; 99284

== ENCOUNTER 2024-08-11 15:47 | Outpatient (OUT) | payer OTHER, SELFPAY ==
--- NOTE | 2024-08-11 15:50 | MR_ITS ---
The [address] [address] Patient Name: ASHLIE PETTY MRN: [facility]:[id number] date: 1970 Sex: M Assigned Patient Location: MRI Current Patient Location: MRI Accession/Order Number: [id number] Exam Date: 08/11/2024 17:57 Report Date: 08/11/2024 18:15 At the request of: GIANNA MESA MD Procedure: MR lumbar spine wo con MRI LUMBAR SPINE WITHOUT CONTRAST CLINICAL DATA: Low back pain radiating to the hip COMPARISON: Plain films 07/10/2024 Multiecho imaging in the axial and sagittal plane was performed without contrast. There is slight retrolisthesis of L2 on L3, L3 on L4 and L4 and L5. There are no acute compression fractures or marrow edema. There are degenerative endplate signal changes, greatest at L4-5. The conus medullaris is within normal limits for caliber, position and signal intensity. 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 There is slight nodular thickening of the adrenal limbs. No paraspinal soft tissue abnormalities are visualized. At T12-L1 and L1-2, there is no disc disease or stenosis. At L2-3, there is disc desiccation. There is minor annular disc bulging, greater toward the neural foramen. There is subtle thecal sac effacement. There is mild inferior foraminal encroachment, left greater than right. At L3-4, there is loss of disc height. There is mild annular disc bulging, greater toward the neural foramen. There is minor thecal sac effacement. Mild left and minimal right foraminal encroachment is seen. At L4-5, there is narrowing of the disc space. There is mild disco osteophytic bulging which also extends laterally. There is bilateral facet and ligamentous hypertrophy. Mild thecal sac effacement is present. Moderate foraminal impingement is noted, right greater than left. At the lumbosacral junction, slight loss of disc height is seen. Mild annular disc bulging is present, greater toward the neural foramen. There is mild facet hypertrophy. No thecal sac effacement is noted. Mild foraminal encroachment is present, left side slightly greater than right. MR/MR lumbar spine wo con IMPRESSION: DISCOVERTEBRAL DEGENERATIVE CHANGES, DESCRIBED, GREATEST AT L4-5. Impression dictated by: Tana Chambers M.D.08/11/2024 6:15 PM Dictation Location: [place] [address] Electronically authenticated by: [id number] Y Date: 08/11/2024 18:15
--- OUTSIDE RECORDS SUMMARY | 2024-08-11 16:05 | XMS_ITS | CCD ---
Author Organization [facility] Care Team Providers Care Cardiovascular Surgical Tech Name Role Phone FREDRICK, DR PHILIP Admitting [...] TAB PO Daily July 10, 2024 12:00am [place] 9-Cct-Sko-Fish Oil (Fish Oil) 60-90-500 mg capsule (1 source) Start: 07-10-2024 take 1 capsule by mouth once daily [place] 6-Zdz-Owy-Fish Oil (Fish Oil) 60-90-500 mg capsule Active [...] Drug Class(es) Dates Sig (Normalized) Sig (Original) [id number] 200 actuat albuterol 0.09 mg/actuat metered dose [...] / neomycin 3.5 mg/ml / polymyxin b [id number] unt/ml otic suspension (1 source) Aminoglycoside Antibacterial, Polymyxin-class Antibacterial, Corticosteroid Start: 04-27-2024 End: 07-10-2024 Gxotkgjf-Krstzneec-Vl 3.5-10,000-1 mg/mL-unit/mL-% drops,suspension Discontinued 4 DROPS OTIC [...] Comprehensive Metabolic Pane emmett 07-23-2023 Albumin [Mass/Vol] 4.156236 g/dL Normal 3.4-5.0 g/dL [email or web address] Other ALP [Catalytic activity/Vol] 94 U/L Normal 46-116 U/L [email or web address] Other ALT [Catalytic activity/Vol] 58 U/L Normal 16-63 U/L [email or web address] Other Anion gap [Moles/Vol] 10.6 mmol/L [email or web address] Other AST [Catalytic activity/Vol] 28 U/L Normal 15-37 U/L [email or web address] Other Bilirubin [Mass/Vol] 0.9254265 mg/dL Normal 0.2-1.0 mg /dL [email or web address] Other Calcium [Mass/Vol] 9.0168673 mg/dL Normal 8.5-10.1 mg/ dL [email or web address] Other Chloride [Moles/Vol] 103 mmol/L Normal 98-107 mmol/L [email or web address] Other CO2 [Moles/Vol] 30.85237022 mmol/L Normal 21.0-3 2.0 mmol/L [facility] Other Creatinine [Mass/Vol] 0.89434364 mg/dL Low 0.70-1.30 mg/dL [facility] Other Glucose [Mass/Vol] 114 mg/dL High 74-106 mg/dL [email or web address] Other Potassium [Moles/Vol] 3.83785724 mmol/L Normal 3.5-5.1 mmol/L [facility] [facility] Other Protein [Mass/Vol] 8.099005 g/dL Normal 6.4-8.2 g/dL [facility] Other Sodium [Moles/Vol] 140 mmol/L Normal 136-145 mmol/L [email or web address] Other Urea nitrogen [Mass/Vol] 9.7491130 mg/dL Normal 7.0-18.0 mg/dL [email or web address] Other Urea nitrogen/Creatinine [Mass ratio] 13.0 mg/mg [email or web address] Other Comprehensive Metabolic Panel 4.0 g/dL [email or web address] Other Comprehensive Metabolic Panel 1.0 [email or web address] Other Comprehensive Metabolic Panel see note [email or web address] Other Comprehensive Metabolic Panel >60 >=60 [email or web address] Other Lipid Panelon 07-23-2023 Cholesterol [Mass/Vol] 166 mg/dL <=200 mg/dL [email or web address] Other Cholesterol in HDL [Mass/Vol] 44 mg/dL Normal 40-60 mg/dL [email or web address] Other Triglyceride [Mass/Vol] 114 mg/dL <=150 mg/dL [email or web address] Other Lipid Panel 99.2 mg/dL [email or web address] Other Lipid Panel 22.8 mg/dL [email or web address] Other Lipid Panel 3.8 [email or web address] Other PSA SCREENINGon 07-23-2023 PSA SCREENING 1.10 ng/mL <=4.00 ng/mL [email or web address] Other Comprehensive Metabolic Pane emmett 07-13-2022 Albumin [Mass/Vol] 4.1 g/dL [email or web address] Other Calcium [Mass/Vol] 9.9 mg/dL [email or web address] Other Chloride [Moles/Vol] 101 mmol/L [email or web address] Other CO2 [Moles/Vol] 30.6 mmol/L [email or web address] Other Creatinine [Mass/Vol] 0.65 mg/dL [email or web address] Other Creatinine [Mass/Vol] 21.5 mg/dL [facility] Other Glucose [Mass/Vol] 135 mg/dL [facility] Other Potassium [Moles/Vol] 4.2 mmol/L [facility] Other Sodium [Moles/Vol] 139 mmol/L [facility] Other Urea nitrogen [Mass/Vol] 14.0 mg/dL [facility] Other Comprehensive Metabolic Panel [facility] Other Comprehensive Metabolic Panel >60 [facility] Other Comprehensive Metabolic Panel 7.8 [facility] Other Comprehensive Metabolic Panel 3.7 [facility] Other CBC AUTO DIFFon 07-21-2021 BASO # 0.1 103/ul Normal 0.0-0.[address] [facility] Comment on above: Performed By: #### C BC #### [facility] [address] [place] [address] Dr. Iliana Condon Basophils/100 WBC (Bld) 1.1 % Normal 0.2-2.[address] [facility] Comment on above: Performed By: #### C BC #### [facility] [address] [place] [address] Dr. Iliana Condon EO # 0.2 103/ul Normal 0.0-0.7 [facility] Comment on above: Performed By: #### C BC #### [facility] [address] [address] [address] Iliana Condon Eosinophils/100 WBC (Bld) 4.2 % Normal 0.9-7.0 [facility] Comment on above: Performed By: #### C BC #### [facility] [address] [place] [address] Dr. Iliana Condon Erythrocyte distribution width (RBC) [Ratio] 13.2 % Normal 11.0-15.[address] [facility] Comment on above: Performed By: #### C BC #### [facility] [address] [place] [address] Dr. Iliana Condon Hematocrit (Bld) [Volume fraction] 47.5 % Normal 42.0-54.[address] [facility] Comment on above: Performed By: #### C BC #### [facility] [address] [place] [address] Dr. Iliana Condon Hemoglobin (Bld) [Mass/Vol] 16.2 g/dL Normal 14.0-18.[address] [facility] Comment on above: Performed By: #### C BC #### [facility] [address] [place] [address] Dr. Iliana Condon IG # 0.01 10e3/ul Normal 0.00-0.[address] [facility] Comment on above: Performed By: #### C BC #### [facility] [address] [place] [address] Dr. Iliana Condon IG % 0.2 % Normal 0.0-0.[address] [facility] Comment on above: Performed By: #### C BC #### [facility] [address] [place] [address] Dr. Iliana Condon LYMPH # 1.5 103/ul Normal 1.2-3.[address] [facility] Comment on above: Performed By: #### C BC #### [facility] [address] [place] [address] Dr. Iliana Condon Lymphocytes/100 WBC (Bld) 28.6 % Normal 20.5-60.[address] [facility] Comment on above: Performed By: #### C BC #### [facility] [address] [place] [address] Dr. Iliana Condon MANUAL DIFF REQ NO Normal [facility] Comment on above: Performed By: #### C BC #### [facility] [address] [place] [address] Dr. Iliana Condon MCH (RBC) [Entitic mass] 31.8 pg Normal 25.9-34.[address] [facility] Comment on above: Performed By: #### C BC #### [facility] [address] [address] [address] Iliana Condon MCHC (RBC) [Mass/Vol] 34.1 g/dL Normal 29.9-35.2 [facility] Comment on above: Performed By: #### C BC #### [facility] [address] [place] [address] Dr. Iliana Condon MCV (RBC) [Entitic vol] 93.1 fL Normal 80.0-94.0 [facility] Comment on above: Performed By: #### C BC #### [facility] [address] [place] [address] Dr. Iliana Condon MONO # 0.7 103/ul Normal 0.3-0.8 [facility] Comment on above: Performed By: #### C BC #### [facility] [address] [place] [address] Dr. Iliana Condon Monocytes/100 WBC (Bld) 12.6 % Critically high 1.7-12.0 [facility] Comment on above: Performed By: #### C BC #### [facility] [address] [place] [address] Dr. Iliana Condon NEUT # 2.8 103/ul Normal 1.4-6.[address] [facility] Comment on above: Performed By: #### C BC #### [facility] [address] [place] [address] Dr. Iliana Condon Neutrophils/100 WBC (Bld) 53.3 % Normal 43.0-75.0 [facility] Comment on above: Performed By: #### C BC #### [facility] [address] [place] [address] Dr. Iliana Condon Platelet mean volume (Bld) [Entitic vol] 9.4 fL Critically low 9.5-13.5 [facility] Comment on above: Performed By: #### C BC #### [facility] [address] [place] [address] Dr. Iliana Condon PLT 224 103/ul Normal 150-450 [facility] Comment on above: Performed By: #### C BC #### [facility] [address] [place] [address] Dr. Iliana Condon RBC 5.10 106/ul Normal 4.70-6.[address] [facility] Comment on above: Performed By: #### C BC #### [facility] [address] [place] [address] Dr. Iliana Condon WBC 5.2 103/ul Normal 4.0-11.[address] [facility] Comment on above: Performed By: #### C BC #### [facility] [address] [place] [address] Dr. Iliana Condon GLYCOHEMOGLOBIN A1Con 2021 ADA RECOMMENDATION ADA THERAPEUTIC TARGET 6.0 - 7.0 ACTION SUGGESTED > 7.[address] [facility] Comment on above: Performed By: #### A 1C #### [facility] [address] [place] [address] Dr. Iliana Condon Glucose [Mass/Vol] 140 mg/dL Normal [facility] Comment on above: Performed By: #### A 1C #### [facility] [address] [place] [address] Dr. Iliana Condon HbA1c (Bld) [Mass fraction] 6.5 % Critically high <=6.[address] [facility] Comment on above: Performed By: #### A 1C #### [facility] [address] [place] [address] Dr. Iliana Condon LIPID PROFILEon 07-21-2021 CHOL-HDL RATIO NORM SEE BELOW Normal [facility] Comment on above: Result Comment: 3.3 - 4.4 LOW RISK 4.4 - 7.1 AVERAGE RISK 7.1 - 11.0 MODERATE RISK >11.0 HIGH RISK Performed By: #### L IPID, CMP #### [facility] [address] [place] [address] Dr. Iliana Condon Cholesterol [Mass/Vol] 233 mg/dL Critically high <=[address] [facility] Comment on above: Performed By: #### L IPID, CMP #### [facility] [address] [place] [address] Dr. Iliana Condon Cholesterol in HDL [Mass/Vol] 57 mg/dL Normal [facility] Comment on above: Performed By: #### L IPID, CMP #### [facility] [address] [address] [address] Iliana Condon Cholesterol in LDL [Mass/Vol] 128.4 mg/dL Normal [facility] Comment on above: Performed By: #### L IPID, CMP #### [facility] [address] [place] [address] Dr. Iliana Condon Cholesterol.total/Ch olesterol in HDL [Mass ratio] 4.1 {ratio} Normal [facility] Comment on above: Performed By: #### L IPID, CMP #### [facility] [address] [place] [address] Dr. Iliana Condon HDL NORMAL > or = 60 mg/dl - LOW CARDIOVASCULAR RISK <40 mg/dl - HIGH CARDIOVASCULAR RISK Normal [facility] Comment on above: Performed By: #### L IPID, CMP #### [facility] [address] [place] [address] Dr. Iliana Condon LDL CALC NORMAL SEE BELOW Normal [facility] Comment on above: Result Comment: <100 mg/dl OPTIMAL 100 - 129 mg/dl NEAR OR ABOVE OPTIMAL 130 - 159 mg/dl BORDERLINE HIGH 160 - 189 mg/dl HIGH >190 mg/dl VERY HIGH Performed By: #### L IPID, CMP #### [facility] [address] [place] [address] Dr. Iliana Condon Triglyceride [Mass/Vol] 238 mg/dL Critically high <=[address] [facility] Comment on above: Performed By: #### L IPID, CMP #### [facility] [address] [place] [address] Dr. Iliana Condon VLDL CALC 47.6 mg/dL Normal [facility] Comment on above: Performed By: #### L IPID, CMP #### [facility] [address] [place] [address] Dr. Iliana Condon MICROALBUMIN, RAND URon 01-2 mALB 21.2 mg/L Normal <=30.[address] [facility] Comment on above: Performed By: #### M ALBR #### [facility] [address] [address] [address] Iliana Condon PROF 14(COMP METB)on 022 Albumin [Mass/Vol] 4.2 g/dL Normal 3.5-5.0 [facility] Comment on above: Performed By: #### L IPID, CMP #### [facility] [address] [place] [address] Dr. Iliana Condon Albumin/Globulin [Mass ratio] 1.1 {ratio} Normal [facility] Comment on above: Performed By: #### L IPID, CMP #### [facility] [address] [place] [address] Dr. Iliana Condon ALP [Catalytic activity/Vol] 97 U/L Normal 38-[address] [facility] Comment on above: Performed By: #### L IPID, CMP #### [facility] [address] [place] [address] Dr. Iliana Condon ALT [Catalytic activity/Vol] 62 U/L Normal 21-[address] [facility] Comment on above: Performed By: #### L IPID, CMP #### [facility] [address] [place] [address] Dr. Iliana Condon Anion gap [Moles/Vol] 13.6 mmol/L Normal [facility] Comment on above: Performed By: #### L IPID, CMP #### [facility] [address] [place] [address] Dr. Iliana Condon AST [Catalytic activity/Vol] 34 U/L Normal 17-[address] [facility] Comment on above: Performed By: #### L IPID, CMP #### [facility] [address] [place] [address] Dr. Iliana Condon Bilirubin [Mass/Vol] 0.6 mg/dL Normal 0.2-1.3 [facility] Comment on above: Performed By: #### L IPID, CMP #### [facility] [address] [place] [address] Dr. Iliana Condon Calcium [Mass/Vol] 10.2 mg/dL Normal 8.4-10.2 [facility] Comment on above: Performed By: #### L IPID, CMP #### [facility] [address] [address] [address] Iliana Condon Chloride [Moles/Vol] 100 mmol/L Normal 98-[address] [facility] Comment on above: Performed By: #### L IPID, CMP #### [facility] [address] [address] [address] Iliana Condon CO2 [Moles/Vol] 27.2 mmol/L Normal 22.0-30.[address] [facility] Comment on above: Performed By: #### L IPID, CMP #### [facility] [address] [address] [address] Iliana Condon Creatinine [Mass/Vol] 0.61 mg/dL Critically low 0.66-1.[address] [facility] Comment on above: Performed By: #### L IPID, CMP #### [facility] [address] [address] [address] Iliana Condon EGFR-AF BULGARIAN >60 Normal >=[address] [facility] Comment on above: Performed By: #### L IPID, CMP #### [facility] [address] [address] [address] Iliana Condon EGFR-NON AF BULGARIAN >60 Normal >=[address] [facility] Comment on above: Performed By: #### L IPID, CMP #### [facility] [address] [place] [address] Dr. Iliana Condon Globulin (S) [Mass/Vol] 3.8 g/dL Normal [facility] Comment on above: Performed By: #### L IPID, CMP #### [facility] [address] [address] [address] Iliana Condon Glucose [Mass/Vol] 103 mg/dL Normal 74-106 [facility] Comment on above: Performed By: #### L IPID, CMP #### [facility] [address] [address] [address] Iliana Condon Potassium [Moles/Vol] 4.8 mmol/L Normal 3.4-5.[address] [facility] Comment on above: Performed By: #### L IPID, CMP #### [facility] [address] [place] [address] Dr. Iliana Condon Protein [Mass/Vol] 8.0 g/dL Normal 6.1-8.2 [facility] Comment on above: Performed By: #### L IPID, CMP #### [facility] [address] [place] [address] Dr. Iliana Condon Sodium [Moles/Vol] 136 mmol/L Critically low 137-145 [facility] Comment on above: Performed By: #### L IPID, CMP #### [facility] [address] [place] [address] Dr. Iliana Condon Urea nitrogen [Mass/Vol] 15.0 mg/dL Normal 9.0-20.[address] [facility] Comment on above: Performed By: #### L IPID, CMP #### [facility] [address] [place] [address] Dr. Iliana Condon Urea nitrogen/Creatinine [Mass ratio] 24.6 mg/mg Normal [facility] Comment on above: Performed By: #### L IPID, CMP #### [facility] [address] [place] [address] Dr. Iliana Condon Covid-19 PCR ([facility])on 06-24 SARS-CoV-2 (COVID-19) RNA TRISTA+probe Ql (Unsp spec) Not detected Normal NOT DETECTED [facility] Comment on above: Result Comment: This test is not yet approved or cleared by the [place] FDA. When there are no FDA-approved or cleared tests available, and other criteria are met, FDA can make tests available under an emergency access mechanism called an Emergency Use Authorization (EUA). The EUA for this test is supported by the [place] of Health and Human Service's (HHS's) declaration [...] SARS-CoV-2. Performed By: #### C VDTB #### [facility] [address] [place] [address] [id number] [address] Iliana Condon Covid-19 PCR ([facility])on 07-26 SARS-CoV-2 (COVID-19) RNA TRISTA+probe Ql (Unsp spec) Not detected Normal NOT DETECTED [facility] Comment on above: Result Comment: This test is not yet approved or cleared by the [place] FDA. When there are no FDA-approved or cleared tests available, and other criteria are met, FDA can make tests available under an emergency access mechanism called an Emergency Use Authorization (EUA). The EUA for this test is supported by the [place] of Health and Human Service's (HHS's) declaration [...] SARS-CoV-2. Performed By: #### C VDTB #### [facility] [address] [place] [id number] Renetta Fajardo Vital Signs Date Time Vital Sign Value Performing Clinician Facility 07-10-2024 08:38-0500 Body height 162.56 cm [facility] 07-10-2024 08:38-0500 Body mass index (BMI) [Ratio] 22.8 kg/m2 [facility] 07-10-2024 08:38-0500 Body weight 60.38 kg [facility] 07-10-2024 08:38-0500 Diastolic blood pressure 86 mm[Hg] [facility] 07-10-2024 08:38-0500 Heart rate 93 /min [facility] 07-10-2024 08:38-0500 Respiratory rate 12 /min [facility] 07-10-2024 08:38-0500 Systolic blood pressure 138 mm[Hg] [facility] 03-09-2024 15:47-0400 Body height 162.56 cm [facility] 03-09-2024 15:47-0400 Body mass index (BMI) [Ratio] 22.1 kg/m2 [facility] 03-09-2024 15:47-0400 Body weight 58.57 kg [facility] 03-09-2024 15:47-0400 Diastolic blood pressure 89 mm[Hg] [facility] 03-09-2024 15:47-0400 Heart rate 103 /min [facility] 03-09-2024 15:47-0400 Respiratory rate 12 /min [facility] 03-09-2024 15:47-0400 Systolic blood pressure 139 mm[Hg] [facility] 11-08-2023 10:02-0400 Body height 162.56 cm [facility] 11-08-2023 10:02-0400 Body mass index (BMI) [Ratio] 21.8 kg/m2 [facility] 11-08-2023 10:02-0400 Body weight 57.66 kg [facility] 11-08-2023 10:02-0400 Diastolic blood pressure 83 mm[Hg] [facility] 11-08-2023 10:02-0400 Heart rate 101 /min [facility] 11-08-2023 10:02-0400 Respiratory rate 12 /min [facility] 11-08-2023 10:02-0400 Systolic blood pressure 127 mm[Hg] [facility] 07-23-2023 08:30-0500 Body height 162.56 cm Waylon Ball Other [facility] Other 07-23-2023 08:30-0500 Body mass index (BMI) [Ratio] 20.42 kg/m2 [facility] Other [facility] Other 07-23-2023 08:30-0500 Body weight 53.98 kg Waylon Ball Other [facility] Other 07-23-2023 08:30-0500 Diastolic blood pressure 84 mm[Hg] Waylon Ball Other [facility] Other 07-23-2023 08:30-0500 Respiratory rate 12 /min Waylon Ball Other [facility] Other 07-23-2023 08:30-0500 Systolic blood pressure 133 mm[Hg] Waylon Ball Other [facility] Other 2023 09:00-0400 Body height 162.56 cm Waylno Ball Other [facility] Other 2023 09:00-0400 Body mass index (BMI) [Ratio] 21.54 kg/m2 [facility] Ball Other [facility] Other 2023 09:00-0400 Body weight 56.93 kg Waylon Ball Other [facility] Other 2023 09:00-0400 Diastolic blood pressure 80 mm[Hg] Waylon Ball Other [facility] Other 2023 09:00-0400 Respiratory rate 12 /min Waylon Ball Other [facility] Other 2023 09:00-0400 Systolic blood pressure 130 mm[Hg] Waylon Ball Other [facility] Other 12-19-2022 15:45-0400 Body height 162.56 cm Waylon Ball Other [facility] Other 12-19-2022 15:45-0400 Body mass index (BMI) [Ratio] 21.83 kg/m2 Waylon Ball Other [facility] Other 12-19-2022 15:45-0400 Body weight 57.7 kg Waylon Ball Other [facility] Other 12-19-2022 15:45-0400 Diastolic blood pressure 84 mm[Hg] Waylon Ball Other [facility] Other 12-19-2022 15:45-0400 Respiratory rate 12 /min Waylon Ball Other [facility] Other 12-19-2022 15:45-0400 Systolic blood pressure 134 mm[Hg] Waylon Ball Other [facility] Other 07-13-2022 09:30-0500 Body height 162.56 cm Waylon Ball Other [facility] Other 07-13-2022 09:30-0500 Body mass index (BMI) [Ratio] 22.04 kg/m2 Waylon Ball Other [facility] Other 07-13-2022 09:30-0500 Body weight 58.24 kg Waylon Ball Other [facility] Other 07-13-2022 09:30-0500 Diastolic blood pressure 76 mm[Hg] Waylon Ball Other [facility] Other 07-13-2022 09:30-0500 Respiratory rate 12 /min Waylon Ball Other [facility] Other 07-13-2022 09:30-0500 Systolic blood pressure 122 mm[Hg] Waylon Ball Other [facility] Other Encounters Encounter Date Encounter Type Care Provider Facility Start: 07-27-2024 End: 07-27-2024 ambulatory Roc Romo MD Facility: [facility] Start: 07-10-2024 End: 07-10-2024 ambulatory [facility] Work Phone: Start: 07-10-2024 End: 07-10-2024 Encounter for general adult medical examination without abnormal findings [facility] Start: 07-10-2024 End: 07-10-2024 Patient encounter procedure [facility] Work Phone: Start: 07-07-2024 Patient encounter status [facility] Start: 03-09-2024 End: 03-09-2024 ambulatory [facility] Work Phone: Start: 03-09-2024 End: 03-09-2024 Patient encounter procedure [facility] Work Phone: Start: 11-08-2023 End: 11-08-2023 ambulatory [facility] Work Phone: Start: 11-08-2023 End: 11-08-2023 Patient encounter procedure [facility] Work Phone: Start: 08-22-2023 Non-patient / Non-visit [facility] Work Phone: Start: 07-23-2023 End: 07-23-2023 ambulatory Waylon Byers Other [facility] Other Start: 07-23-2023 Encounter for genera l adult medical examination without abnormal findings Waylon Byers [facility] Start: 07-23-2023 Periodic preventive med est patient 40-64yrs Waylon Byers [facility] Start: 07-23-2023 Telephone encounter Waylon Byers [facility] Start: 02-26-2023 End: 02-26-2023 ambulatory Waylon Byers Other [facility] Other Start: 02-26-2023 Telephone encounter Waylon Byers [facility] Start: 2023 End: 2023 ambulatory Waylon Fredrick Other [facility] Other Start: 2023 Patient encounter procedure Waylon Byers [facility] Start: 12-19-2022 End: 12-19-2022 ambulatory Waylon Fredrick Other [facility] Other Start: 12-19-2022 Office outpatient vi sit 15 minutes Waylon Byers [facility] Start: 12-18-2022 End: 12-18-2022 ambulatory Waylon Fredrick Other [facility] Other Start: 12-18-2022 Telephone encounter Waylon Byers [facility] Start: 12-14-2022 End: 12-14-2022 ambulatory Waylon Byers Other [facility] Other Start: 12-14-2022 Telephone encounter Waylon Byers [facility] Start: 07-29-2022 End: 07-29-2022 ambulatory Waylon Byers Other [facility] Other Start: 07-29-2022 Telephone encounter Waylon Byers [facility] Start: 07-13-2022 End: 07-13-2022 ambulatory Waylon Fredrick Other [facility] Other Start: 07-13-2022 Encounter for genera l adult medical examination without abnormal findings Waylon Byers [facility] Start: 07-13-2022 Periodic preventive med est patient 40-64yrs Waylon Byers [facility] Start: 07-25-2021 Encounter for genera l adult medical examination without abnormal findings DR WAYLON BYERS [facility] Start: 07-21-2021 End: 07-22-[address] WAYLON BYERS Facility: Start: 07-21-2021 End: 07-22-2021 Encounter for general adult medical examination without abnormal findings DR WAYLON BYERS Facility:[facility] Start: 07-07-2021 End: 07-07-[address] WAYLON BYERS Facility:[facility] Start: 06-23-[address] WAYLON BYERS Facili ty:[facility] Start: 08-25-2020 Encounter for preprocedural laboratory examination DR QING VELEZ [facility] Start: 08-24-2020 End: 08-24-[address] QING VELEZ Facility:[facility] Start: 08-20-2020 End: 08-21-[address] QING VELEZ Facility:[facility] Start: 08-20-2020 End: 08-21-2020 Encounter for preprocedural laboratory examination DR QING VELEZ Facility:[facility] Procedures Date Procedure Procedure Detail Performing Clinician Start: 07-21-[address] EDUARDO IN [place] Comment on above: Performed By: #### P [facility] #### [facility] [address] [place] [address] Dr. Iliana Condon Depression screening Nany Byers Other Plan of Treatment Date Care Activity Detail Author Start: 07-10-2024 Patient referral [facility] Work Phone: Comprehensive metabo lic 2000 panel - Serum or Plasma [facility] Patient Education Low back pain in adults [facility] Work Phone: Patient referral [facility] Work Phone: XR Lumbar spine Views [facility] Immunizations Immunization Date Immunization Notes Care Provider Fa greer 03-09-2024 influenza, seasonal, injectable, preservative free [facility] 2023 influenza, injectabl e, quadrivalent, preservative free Waylon Byers Other [facility] 03-07-2022 influenza virus vaccine, split virus (incl. purified surface antigen) Waylon Byers Other [facility] Other 03-07-2022 influenza virus vaccine, unspecified formulation [facility] 05-27-2020 zoster vaccine, live Nany Byers Other [facility] 03-03-2020 zoster vaccine, live Benjami andrew Byers Other [facility] 02-23-2020 influenza virus vaccine, split virus (incl. purified surface antigen) Waylon Byers Other [facility] [email or web address] Other 02-23-2020 influenza virus vaccine, unspecified formulation [facility] Payers Date Payer Category Payer Unknown 1970 Unknown [id number] 2.16.84 [id number] 1970 Unknown [id number] 2.16.84 [id number] 1970 Unknown [id number] 2.16.84 [id number] 1970 Unknown [id number] 2.16.84 [id number] 1970 Unknown [id number] 2.16.84 [id number] 1970 Unknown [id number] [id number] 1959 Self-pay 1959 Unknown [id number] Unknown [id number] [id number] Social History Date Type Detail Facility Sex Assigned At [facility] Other Start: 08-22-2023 End: 08-22-2023 Tobacco smoking status NHIS Ex-smoker (finding) [facility] Start: 1970 Sex Assigned At Male [facility] Start: 07-10-2024 Sex Male (finding) [facility] Medical Equipment Procedure Code Equipment Code [...] PSA (prostate specific antigen) (ICD-10 - Z12.5) [facility] Other 09-01-2023 Evaluation note* Encounter Date Diagnosis [...] bedtime. Continue TRazodone, which has been beneficial [facility] Other 06-23-2023 Evaluation note* Encounter Date Diagnosis Assessment Notes Treatment Notes Treatment Clinical Notes Nov, Allergic contact dermatitis due to plants, except food (ICD-10 - L23.7) [facility] Other 01-20-2023 Evaluation note* Encounter Date Diagnosis [...] prevent callus formation and to ease pain. [facility] Other 03-03-2021 NoteOPERATIVE NOTE OPERATION DATE: 08/24/2020 [...] in 10 years. CC: Waylon Byers DO. [facility] Signed and Approved by: DR QING VELEZ 08/31/2020 08:02:00[facility] noteNo InformationNoFor[facility] [email or web address] Other Evaluation noteNort [facility] Other Evaluation note* Diagnosis Onset Date Resolution Status Essential hypertension acute RANDEE (generalized anxiety disorder) acute Hypercholesterolemia acute Lumbar spondylosis acute Primary insomnia acute Type 2 diabetes mellitus with hyperglycemia acute [facility] Work Phone: Evaluation note* Diagnosis Onset [...] 10 8:22am Wellness examination acute 2024 8:22am [facility] Work Phone: [facility] general Narrative - Reported* Type Description Date [...] History COLONOSCOPY Hospitalization History SEE SURGICAL HX [facility] [email or web address] Other [facility] Other Hisqxkv general Narrative - Reported* Type Description Date [...] COLONOSCOPY 08/2020 Hospitalization History SEE SURGICAL HX [facility] [email or web address] Other Hospital Discharge instructionsAmbulatory Orders* Referral to Pain Management Location: None [facility] Work Phone: Summary Purpose Family History No [...] DATE CREATED AUTHOR AUTHOR'S CANDIE ATCASSIE 07/30/2024 [facility] REASON FOR VISIT (unrecogniz ed section [...] BE BASED ON THE PRIMARY CLINICAL RECORDS. [facility] [employer] [facility]. provides no warranty or guarantee of the accuracy or completeness of information in this document.
== END 2024-08-11 15:48 | disposition home or self-care (01) ==
LOC: MRI 15:47
PROVIDERS: PCP Internal Medicine; Visit Provider Anesthesiology
DX: M48.062 Spinal stenosis, lumbar region with neurogenic claudication (principal); M51.369 Other intervertebral disc degeneration, lumbar region without mention of lumbar back pain or lower extremity pain
CPT/HCPCS: 72148

== ENCOUNTER 2024-08-20 10:35 | Outpatient (OUT) | payer OTHER, SELFPAY ==
--- OUTSIDE RECORDS SUMMARY | 2024-08-20 10:50 | XMS_ITS | CCD ---
Author Organization [facility] Care Team Providers Care Instructional Design Manager Name Role Phone FREDRICK, DR PHILIP Admitting [...] TAB PO Daily July 10, 2024 12:00am [place] 0-Eau-Zsv-Fish Oil (Fish Oil) 60-90-500 mg capsule (1 source) Start: 07-10-2024 take 1 capsule by mouth once daily [place] 6-Jbp-Xdb-Fish Oil (Fish Oil) 60-90-500 mg capsule Active [...] Drug Class(es) Dates Sig (Normalized) Sig (Original) [id number] 200 actuat albuterol 0.09 mg/actuat metered dose [...] / neomycin 3.5 mg/ml / polymyxin b 48169 unt/ml otic suspension (1 source) Aminoglycoside Antibacterial, Polymyxin-class Antibacterial, Corticosteroid Start: 04-27-2024 End: 07-10-2024 Zlrjgfcn-Hrnuybwsh-Kw 3.5-10,000-1 mg/mL-unit/mL-% drops,suspension Discontinued 4 DROPS OTIC [...] Comprehensive Metabolic Pane emmett 07-23-2023 Albumin [Mass/Vol] 4.459190 g/dL Normal 3.4-5.0 g/dL [facility] [employer] Other ALP [Catalytic activity/Vol] 94 U/L Normal 46-116 U/L [facility] [employer] Other ALT [Catalytic activity/Vol] 58 U/L Normal 16-63 U/L [facility] [employer] Other Anion gap [Moles/Vol] 10.6 mmol/L [facility] [employer] Other AST [Catalytic activity/Vol] 28 U/L Normal 15-37 U/L [facility] [employer] Other Bilirubin [Mass/Vol] 0.2650208 mg/dL Normal 0.2-1.0 mg /dL [facility] [employer] Other Calcium [Mass/Vol] 9.5309938 mg/dL Normal 8.5-10.1 mg/ dL [facility] [employer] Other Chloride [Moles/Vol] 103 mmol/L Normal 98-107 mmol/L [facility] [employer] Other CO2 [Moles/Vol] 30.88647821 mmol/L Normal 21.0-3 2.0 mmol/L [employer] Other Creatinine [Mass/Vol] 0.01367632 mg/dL Low 0.70-1.30 mg/dL [employer] Other Glucose [Mass/Vol] 114 mg/dL High 74-106 mg/dL [facility] [employer] Other Potassium [Moles/Vol] 3.18391552 mmol/L Normal 3.5-5.1 mmol/L [employer] Other Protein [Mass/Vol] 8.155957 g/dL Normal 6.4-8.2 g/dL [email or web address] Other Sodium [Moles/Vol] 140 mmol/L Normal 136-145 mmol/L [facility] [employer] Other Urea nitrogen [Mass/Vol] 9.9529619 mg/dL Normal 7.0-18.0 mg/dL [facility] [employer] Other Urea nitrogen/Creatinine [Mass ratio] 13.0 mg/mg [facility] [employer] Other Comprehensive Metabolic Panel 4.0 g/dL [facility] [employer] Other Comprehensive Metabolic Panel 1.0 [facility] [employer] Other Comprehensive Metabolic Panel see note [facility] [employer] Other Comprehensive Metabolic Panel >60 >=60 [facility] [employer] Other Lipid Panelon 07-23-2023 Cholesterol [Mass/Vol] 166 mg/dL <=200 mg/dL [facility] [employer] Other Cholesterol in HDL [Mass/Vol] 44 mg/dL Normal 40-60 mg/dL [facility] [employer] Other Triglyceride [Mass/Vol] 114 mg/dL <=150 mg/dL [facility] [employer] Other Lipid Panel 99.2 mg/dL [facility] [employer] Other Lipid Panel 22.8 mg/dL [facility] [employer] Other Lipid Panel 3.8 [facility] [employer] Other PSA SCREENINGon 07-23-2023 PSA SCREENING 1.10 ng/mL <=4.00 ng/mL [facility] [employer] Other Comprehensive Metabolic Pane emmett 07-13-2022 Albumin [Mass/Vol] 4.1 g/dL [facility] [employer] Other Calcium [Mass/Vol] 9.9 mg/dL [facility] [employer] Other Chloride [Moles/Vol] 101 mmol/L [facility] [employer] Other CO2 [Moles/Vol] 30.6 mmol/L [facility] [employer] Other Creatinine [Mass/Vol] 0.65 mg/dL [facility] [employer] Other Creatinine [Mass/Vol] 21.5 mg/dL [employer] Other Glucose [Mass/Vol] 135 mg/dL [employer] Other Potassium [Moles/Vol] 4.2 mmol/L [employer] Other Sodium [Moles/Vol] 139 mmol/L [employer] Other Urea nitrogen [Mass/Vol] 14.0 mg/dL [employer] Other Comprehensive Metabolic Panel [employer] Other Comprehensive Metabolic Panel >60 [employer] Other Comprehensive Metabolic Panel 7.8 [employer] Other Comprehensive Metabolic Panel 3.7 [employer] Other CBC AUTO DIFFon 07-21-2021 BASO # 0.1 103/ul Normal 0.0-0.1 [facility] Comment on above: Performed By: #### C BC #### [facility] [address] [place] [address] Dr. Iliana Codnon Basophils/100 WBC (Bld) 1.1 % Normal 0.2-2.0 [facility] Comment on above: Performed By: #### C BC #### [facility] [address] [place] [address] Dr. Iliana Condon EO # 0.2 103/ul Normal 0.0-0.7 [facility] Comment on above: Performed By: #### C BC #### [facility] [address] [address] [address] Iliana Condon Eosinophils/100 WBC (Bld) 4.2 % Normal 0.9-7.0 [facility] Comment on above: Performed By: #### C BC #### [facility] [address] [place] [address] Dr. Iliana Condon Erythrocyte distribution width (RBC) [Ratio] 13.2 % Normal 11.0-15.0 [facility] Comment on above: Performed By: #### C BC #### [facility] [address] [place] [address] Dr. Iliana Condon Hematocrit (Bld) [Volume fraction] 47.5 % Normal 42.0-54.0 [facility] Comment on above: Performed By: #### C BC #### [facility] [address] [place] [address] Dr. Iliana Condon Hemoglobin (Bld) [Mass/Vol] 16.2 g/dL Normal 14.0-18.0 [facility] Comment on above: Performed By: #### C BC #### [facility] [address] [place] [address] Dr. Iliana Condon IG # 0.01 10e3/ul Normal 0.00-0.03 [facility] Comment on above: Performed By: #### C BC #### [facility] [address] [place] [address] Dr. Iliana Condon IG % 0.2 % Normal 0.0-0.5 [facility] Comment on above: Performed By: #### C BC #### [facility] [address] [place] [address] Dr. Iliana Condon LYMPH # 1.5 103/ul Normal 1.2-3.8 [facility] Comment on above: Performed By: #### C BC #### [facility] [address] [place] [address] Dr. Iliana Condon Lymphocytes/100 WBC (Bld) 28.6 % Normal 20.5-60.0 [facility] Comment on above: Performed By: #### C BC #### [facility] [address] [place] [address] Dr. Iliana Condon MANUAL DIFF REQ NO Normal [facility] Comment on above: Performed By: #### C BC #### [facility] [address] [place] [address] Dr. Iliana Condon MCH (RBC) [Entitic mass] 31.8 pg Normal 25.9-34.0 [facility] Comment on above: Performed By: #### C BC #### [facility] [address] [address] [address] Iliana Condon MCHC (RBC) [Mass/Vol] 34.1 g/dL Normal 29.9-35.2 [facility] Comment on above: Performed By: #### C BC #### [facility] [address] [place] [address] Dr. Iliana Condon MCV (RBC) [Entitic vol] 93.1 fL Normal 80.0-94.0 [facility] Comment on above: Performed By: #### C BC #### [facility] [address] [place] [address] Dr. Iliana Condon MONO # 0.7 103/ul Normal 0.3-0.8 [facility] Comment on above: Performed By: #### C BC #### [facility] [address] [place] [address] Dr. Iliana Condon Monocytes/100 WBC (Bld) 12.6 % Critically high 1.7-12.0 [facility] Comment on above: Performed By: #### C BC #### [facility] [address] [place] [address] Dr. Iliana Condon NEUT # 2.8 103/ul Normal 1.4-6.5 [facility] Comment on above: Performed By: #### C BC #### [facility] [address] [place] [address] Dr. Iliana Condon Neutrophils/100 WBC (Bld) 53.3 % Normal 43.0-75.0 [facility] Comment on above: Performed By: #### C BC #### [facility] [address] [place] [address] Dr. Iliana Condon Platelet mean volume (Bld) [Entitic vol] 9.4 fL Critically low 9.5-13.5 [facility] Comment on above: Performed By: #### C BC #### [facility] [address] [place] [address] Dr. Iliana Condon PLT 224 103/ul Normal 150-450 [facility] Comment on above: Performed By: #### C BC #### [facility] [address] [place] [address] Dr. Iliana Condon RBC 5.10 106/ul Normal 4.70-6.10 [facility] Comment on above: Performed By: #### C BC #### [facility] [address] [place] [address] Dr. Iliana Condon WBC 5.2 103/ul Normal 4.0-11.0 [facility] Comment on above: Performed By: #### C BC #### [facility] [address] [place] [address] Dr. Iliana Condon GLYCOHEMOGLOBIN A1Con 2021 ADA RECOMMENDATION ADA THERAPEUTIC TARGET 6.0 - 7.0 ACTION SUGGESTED > 7.0 Normal [facility] Comment on above: Performed By: #### A 1C #### [facility] [address] [place] [address] Dr. Iliana Condon Glucose [Mass/Vol] 140 mg/dL Normal [facility] Comment on above: Performed By: #### A 1C #### [facility] [address] [place] [address] Dr. Iliana Condon HbA1c (Bld) [Mass fraction] 6.5 % Critically high <=6.0 [facility] Comment on above: Performed By: #### A 1C #### [facility] [address] [place] [address] Dr. Iliana Condon LIPID PROFILEon 07-21-2021 CHOL-HDL RATIO NORM SEE BELOW Normal [facility] Comment on above: Result Comment: 3.3 - 4.4 LOW RISK 4.4 - 7.1 AVERAGE RISK 7.1 - 11.0 MODERATE RISK >11.0 HIGH RISK Performed By: #### L IPID, CMP #### [facility] [address] [place] [address] Dr. Iliana Condon Cholesterol [Mass/Vol] 233 mg/dL Critically high <=200 [facility] Comment on above: Performed By: #### L IPID, CMP #### [facility] [address] [place] [address] Dr. Iliana Condon Cholesterol in HDL [Mass/Vol] 57 mg/dL Normal [facility] Comment on above: Performed By: #### L IPID, CMP #### [facility] [address] [address] [address] Iliana Condon Cholesterol in LDL [Mass/Vol] 128.4 mg/dL Normal [facility] Comment on above: Performed By: #### L IPID, CMP #### [facility] [address] [place] [address] Dr. Iliana Condon Cholesterol.total/Ch olesterol in HDL [Mass ratio] 4.1 {ratio} Normal [facility] Comment on above: Performed By: #### L IPID, CMP #### [facility] [address] [place] [address] Dr. Iliana Condon HDL NORMAL > or = 60 mg/dl - LOW CARDIOVASCULAR RISK <40 mg/dl - HIGH CARDIOVASCULAR RISK Normal [facility] Comment on above: Performed By: #### L IPID, CMP #### [facility] [address] [place] [address] Dr. Iliana Condon LDL CALC NORMAL SEE BELOW Normal [facility] Comment on above: Result Comment: <100 mg/dl OPTIMAL 100 - 129 mg/dl NEAR OR ABOVE OPTIMAL 130 - 159 mg/dl BORDERLINE HIGH 160 - 189 mg/dl HIGH >190 mg/dl VERY HIGH Performed By: #### L IPID, CMP #### [facility] [address] [place] [address] Dr. Iliana Condon Triglyceride [Mass/Vol] 238 mg/dL Critically high <=150 [facility] Comment on above: Performed By: #### L IPID, CMP #### [facility] [address] [place] [address] Dr. Iliana Condon VLDL CALC 47.6 mg/dL Normal [facility] Comment on above: Performed By: #### L IPID, CMP #### [facility] [address] [place] [address] Dr. Iliana Condon MICROALBUMIN, RAND URon 01-2 mALB 21.2 mg/L Normal <=30.0 [facility] Comment on above: Performed By: #### M ALBR #### [facility] [address] [address] [address] Iliana Condon PROF 14(COMP METB)on 022 Albumin [Mass/Vol] 4.2 g/dL Normal 3.5-5.0 [facility] Comment on above: Performed By: #### L IPID, CMP #### [facility] [address] [place] [address] Dr. Iliana Condon Albumin/Globulin [Mass ratio] 1.1 {ratio} Normal [facility] Comment on above: Performed By: #### L IPID, CMP #### [facility] [address] [place] [address] Dr. Iliana Condon ALP [Catalytic activity/Vol] 97 U/L Normal 38-126 [facility] Comment on above: Performed By: #### L IPID, CMP #### [facility] [address] [place] [address] Dr. Iliana Condon ALT [Catalytic activity/Vol] 62 U/L Normal 21-72 [facility] Comment on above: Performed By: #### L IPID, CMP #### [facility] [address] [place] [address] Dr. Iliana Condon Anion gap [Moles/Vol] 13.6 mmol/L Normal [facility] Comment on above: Performed By: #### L IPID, CMP #### [facility] [address] [place] [address] Dr. Iliana Condon AST [Catalytic activity/Vol] 34 U/L Normal 17-59 [facility] Comment on above: Performed By: #### L IPID, CMP #### [facility] [address] [place] [address] Dr. Iliana Condon Bilirubin [Mass/Vol] 0.6 mg/dL Normal 0.2-1.3 [facility] Comment on above: Performed By: #### L IPID, CMP #### [facility] [address] [place] [address] Dr. Ilaina Condon Calcium [Mass/Vol] 10.2 mg/dL Normal 8.4-10.2 [facility] Comment on above: Performed By: #### L IPID, CMP #### [facility] [address] [address] [address] Iliana Condon Chloride [Moles/Vol] 100 mmol/L Normal 98-107 [facility] Comment on above: Performed By: #### L IPID, CMP #### [facility] [address] [address] [address] Iliana Condon CO2 [Moles/Vol] 27.2 mmol/L Normal 22.0-30.0 [facility] Comment on above: Performed By: #### L IPID, CMP #### [facility] [address] [address] [address] Iliana Condon Creatinine [Mass/Vol] 0.61 mg/dL Critically low 0.66-1.25 [facility] Comment on above: Performed By: #### L IPID, CMP #### [facility] [address] [address] [address] Iliana Condon EGFR-AF [place] >60 Normal >=60 [facility] Comment on above: Performed By: #### L IPID, CMP #### [facility] [address] [address] [address] Iliana Condon EGFR-NON AF [place] >60 Normal >=60 [facility] Comment on above: Performed By: #### L IPID, CMP #### [facility] [address] [place] [address] Dr. Iliana Condon Globulin (S) [Mass/Vol] 3.8 g/dL Normal [facility] Comment on above: Performed By: #### L IPID, CMP #### [facility] [address] [address] [address] Iliana Condon Glucose [Mass/Vol] 103 mg/dL Normal 74-106 [facility] Comment on above: Performed By: #### L IPID, CMP #### [facility] [address] [address] [address] Iliana Condon Potassium [Moles/Vol] 4.8 mmol/L Normal 3.4-5.0 [facility] Comment on above: Performed By: #### L IPID, CMP #### [facility] [address] [place] [address] Dr. Iliana Condon Protein [Mass/Vol] 8.0 g/dL Normal 6.1-8.2 [facility] Comment on above: Performed By: #### L IPID, CMP #### [facility] [address] [place] [address] Dr. Iliana Condon Sodium [Moles/Vol] 136 mmol/L Critically low 137-145 [facility] Comment on above: Performed By: #### L IPID, CMP #### [facility] [address] [place] [address] Dr. Iliana Condon Urea nitrogen [Mass/Vol] 15.0 mg/dL Normal 9.0-20.0 [facility] Comment on above: Performed By: #### L IPID, CMP #### [facility] [address] [place] [address] Dr. Iliana Condon Urea nitrogen/Creatinine [Mass ratio] 24.6 mg/mg Normal [facility] Comment on above: Performed By: #### L IPID, CMP #### [facility] [address] [place] [address] Dr. Iliana Condon Covid-19 PCR ([facility])on 06-24 SARS-CoV-2 (COVID-19) RNA TRISTA+probe Ql (Unsp spec) Not detected Normal NOT DETECTED [facility] Comment on above: Result Comment: This test is not yet approved or cleared by the [place] FDA. When there are no FDA-approved or cleared tests available, and other criteria are met, FDA can make tests available under an emergency access mechanism called an Emergency Use Authorization (EUA). The EUA for this test is supported by the [place] of Health and Human Service's (HHS's) declaration [...] SARS-CoV-2. Performed By: #### C VDTB #### [facility] [address] [place] [address] [id number] [address] Iliana Condon Covid-19 PCR ([facility])on 07-26 SARS-CoV-2 (COVID-19) RNA RTISTA+probe Ql (Unsp spec) Not detected Normal NOT DETECTED [facility] Comment on above: Result Comment: This test is not yet approved or cleared by the [place] FDA. When there are no FDA-approved or cleared tests available, and other criteria are met, FDA can make tests available under an emergency access mechanism called an Emergency Use Authorization (EUA). The EUA for this test is supported by the [place] of Health and Human Service's (HHS's) declaration [...] SARS-CoV-2. Performed By: #### C VDTB #### [facility] [address] [place] [id number] Renetta Fajardo Vital Signs Date Time Vital Sign Value Performing Clinician Facility 07-10-2024 08:38-0500 Body height 162.56 cm [facility] 07-10-2024 08:38-0500 Body mass index (BMI) [Ratio] 22.8 kg/m2 [facility] 07-10-2024 08:38-0500 Body weight 60.38 kg [facility] 07-10-2024 08:38-0500 Diastolic blood pressure 86 mm[Hg] [facility] 07-10-2024 08:38-0500 Heart rate 93 /min [facility] 07-10-2024 08:38-0500 Respiratory rate 12 /min [facility] 07-10-2024 08:38-0500 Systolic blood pressure 138 mm[Hg] [facility] 03-09-2024 15:47-0400 Body height 162.56 cm [facility] 03-09-2024 15:47-0400 Body mass index (BMI) [Ratio] 22.1 kg/m2 [facility] 03-09-2024 15:47-0400 Body weight 58.57 kg [facility] 03-09-2024 15:47-0400 Diastolic blood pressure 89 mm[Hg] [facility] 03-09-2024 15:47-0400 Heart rate 103 /min [facility] 03-09-2024 15:47-0400 Respiratory rate 12 /min [facility] 03-09-2024 15:47-0400 Systolic blood pressure 139 mm[Hg] [facility] 11-08-2023 10:02-0400 Body height 162.56 cm [facility] 11-08-2023 10:02-0400 Body mass index (BMI) [Ratio] 21.8 kg/m2 [facility] 11-08-2023 10:02-0400 Body weight 57.66 kg [facility] 11-08-2023 10:02-0400 Diastolic blood pressure 83 mm[Hg] [facility] 11-08-2023 10:02-0400 Heart rate 101 /min [facility] 11-08-2023 10:02-0400 Respiratory rate 12 /min [facility] 11-08-2023 10:02-0400 Systolic blood pressure 127 mm[Hg] [facility] 07-23-2023 08:30-0500 Body height 162.56 cm Waylon Ball Other [employer] Other 07-23-2023 08:30-0500 Body mass index (BMI) [Ratio] 20.42 kg/m2 Waylon Ball Other [employer] Other 07-23-2023 08:30-0500 Body weight 53.98 kg Waylon Ball Other [employer] Other 07-23-2023 08:30-0500 Diastolic blood pressure 84 mm[Hg] Waylon Ball Other [employer] Other 07-23-2023 08:30-0500 Respiratory rate 12 /min Waylon Ball Other [employer] Other 07-23-2023 08:30-0500 Systolic blood pressure 133 mm[Hg] Waylon Ball Other [employer] Other 2023 09:00-0400 Body height 162.56 cm Waylon Ball Other [employer] Other 2023 09:00-0400 Body mass index (BMI) [Ratio] 21.54 kg/m2 Waylon Ball Other [employer] Other 2023 09:00-0400 Body weight 56.93 kg Waylon Ball Other [employer] Other 2023 09:00-0400 Diastolic blood pressure 80 mm[Hg] Waylon Ball Other [employer] Other 2023 09:00-0400 Respiratory rate 12 /min Waylon Ball Other [employer] Other 2023 09:00-0400 Systolic blood pressure 130 mm[Hg] Waylon Ball Other [employer] Other 12-19-2022 15:45-0400 Body height 162.56 cm Waylon Ball Other [employer] Other 12-19-2022 15:45-0400 Body mass index (BMI) [Ratio] 21.83 kg/m2 Waylon Ball Other [employer] Other 12-19-2022 15:45-0400 Body weight 57.7 kg Waylon Ball Other [employer] Other 12-19-2022 15:45-0400 Diastolic blood pressure 84 mm[Hg] Waylon Ball Other [employer] Other 12-19-2022 15:45-0400 Respiratory rate 12 /min Waylon Ball Other [employer] Other 12-19-2022 15:45-0400 Systolic blood pressure 134 mm[Hg] Waylon Ball Other [employer] Other 07-13-2022 09:30-0500 Body height 162.56 cm Waylon Ball Other [employer] Other 07-13-2022 09:30-0500 Body mass index (BMI) [Ratio] 22.04 kg/m2 Waylon Ball Other [employer] Other 07-13-2022 09:30-0500 Body weight 58.24 kg Waylon Ball Other [employer] Other 07-13-2022 09:30-0500 Diastolic blood pressure 76 mm[Hg] Waylon Ball Other [employer] Other 07-13-2022 09:30-0500 Respiratory rate 12 /min Waylon Ball Other [employer] Other 07-13-2022 09:30-0500 Systolic blood pressure 122 mm[Hg] Waylon Ball Other [employer] Other Encounters Encounter Date Encounter Type Care Provider Facility Start: 07-27-2024 End: 07-27-2024 ambulatory Roc Romo MD Facility: [facility] Start: 07-10-2024 End: 07-10-2024 ambulatory [facility] Work Phone: Start: 07-10-2024 End: 07-10-2024 Encounter for general adult medical examination without abnormal findings [facility] Start: 07-10-2024 End: 07-10-2024 Patient encounter procedure [facility] Phys[facility] Work Phone: Start: 07-07-2024 Patient encounter status [facility] Start: 03-09-2024 End: 03-09-2024 ambulatory [facility] Work Phone: Start: 03-09-2024 End: 03-09-2024 Patient encounter procedure [facility] Phys[facility] Work Phone: Start: 11-08-2023 End: 11-08-2023 ambulatory [facility] Work Phone: Start: 11-08-2023 End: 11-08-2023 Patient encounter procedure [facility] Phys[facility] Work Phone: Start: 08-22-2023 Non-patient / Non-visit [facility] Physician [facility] Work Phone: Start: 07-23-2023 End: 07-23-2023 ambulatory Waylon Byesr Other [employer] Other Start: 07-23-2023 Encounter for genera l adult medical examination without abnormal findings aWylon Byers [facility] Start: 07-23-2023 Periodic preventive med est patient 40-64yrs Waylon Byers [facility] Start: 07-23-2023 Telephone encounter Waylon Byers [facility] Start: 02-26-2023 End: 02-26-2023 ambulatory Waylon Byers Other [employer] Other Start: 02-26-2023 Telephone encounter Waylon Byers [facility] Start: 2023 End: 2023 ambulatory Waylon Fredrick Other [employer] Other Start: 2023 Patient encounter procedure Waylon Byers [facility] Start: 12-19-2022 End: 12-19-2022 ambulatory Waylon Fredrick Other [employer] Other Start: 12-19-2022 Office outpatient vi sit 15 minutes Waylon Byers [facility] Start: 12-18-2022 End: 12-18-2022 ambulatory Waylon Fredrick Other [employer] Other Start: 12-18-2022 Telephone encounter Waylon Byers [facility] Start: 12-14-2022 End: 12-14-2022 ambulatory Waylon Byers Other [employer] Other Start: 12-14-2022 Telephone encounter Waylon Byers [facility] Start: 07-29-2022 End: 07-29-2022 ambulatory Waylon Byers Other [employer] Other Start: 07-29-2022 Telephone encounter Waylon Byers [facility] Start: 07-13-2022 End: 07-13-2022 ambulatory Waylon Fredrick Other [employer] Other Start: 07-13-2022 Encounter for genera l adult medical examination without abnormal findings Waylon Byers [facility] Start: 07-13-2022 Periodic preventive med est patient 40-64yrs Waylon Byers [facility] Start: 07-25-2021 Encounter for genera l adult medical examination without abnormal findings DR WAYLON BYERS [facility] Start: 07-21-2021 End: 07-22-[address] WAYLON BYERS Facility: Start: 07-21-2021 End: 07-22-2021 Encounter for general adult medical examination without abnormal findings DR WAYLON BYERS Facility:[facility] Start: 07-07-2021 End: 07-07-[address] WAYLON BYERS Facility:[facility] Start: 06-23-[address] WAYLON BYERS Facili ty:[facility] Start: 08-25-2020 Encounter for preprocedural laboratory examination DR QING VELEZ [facility] Start: 08-24-2020 End: 08-24-[address] QING EVLEZ Facility:[facility] Start: 08-20-2020 End: 08-21-[address] QING VELEZ Facility:[facility] Start: 08-20-2020 End: 08-21-2020 Encounter for preprocedural laboratory examination DR QING VELEZ Facility:[facility] Procedures Date Procedure Procedure Detail Performing Clinician Start: 07-21-[address] EDUARDO IN [place] Comment on above: Performed By: #### P [facility] #### [facility] [address] [place] [address] Dr. Iliana Condon Depression screening Nany Byers Other Plan of Treatment Date Care Activity Detail Author Start: 07-10-2024 Patient referral [facility] Work Phone: Comprehensive metabo lic 2000 panel - Serum or Plasma [facility] Patient Education Low back pain in adults [facility] Work Phone: Patient referral [facility] Work Phone: XR Lumbar spine Views [facility] Immunizations Immunization Date Immunization Notes Care Provider Fa greer 03-09-2024 influenza, seasonal, injectable, preservative free [facility] 2023 influenza, injectabl e, quadrivalent, preservative free Waylon Byers Other [facility] 03-07-2022 influenza virus vaccine, split virus (incl. purified surface antigen) Waylon Byers Other [employer] Other 03-07-2022 influenza virus vaccine, unspecified formulation [facility] 05-27-2020 zoster vaccine, live Nany Byers Other [facility] 03-03-2020 zoster vaccine, live Benjami andrew Byers Other [facility] 02-23-2020 influenza virus vaccine, split virus (incl. purified surface antigen) Waylon Byers Other [facility] [employer] Other 02-23-2020 influenza virus vaccine, unspecified formulation [facility] Payers Date Payer Category Payer Unknown 1970 Unknown [id number] [id number] [id number] 1970 Unknown [id number] 2.16.84 [id number] 1970 Unknown [id number] 2.16.84 [id number] 1970 Unknown [id number] 2.16.84 [id number] 1970 Unknown [id number] 2.16.84 [id number] 1970 Unknown [id number] [id number] 1959 Self-pay 1959 Unknown [id number] Unknown [id number] 2.16.8 [id number] Social History Date Type Detail Facility Sex Assigned At [facility] Other Start: 08-22-2023 End: 08-22-2023 Tobacco smoking status NHIS Ex-smoker (finding) [facility] Start: 1970 Sex Assigned At Male [facility] Start: 07-10-2024 Sex Male (finding) [facility] Medical Equipment Procedure Code Equipment Code [...] PSA (prostate specific antigen) (ICD-10 - Z12.5) [employer] Other 09-01-2023 Evaluation note* Encounter Date Diagnosis [...] bedtime. Continue TRazodone, which has been beneficial [employer] Other 06-23-2023 Evaluation note* Encounter Date Diagnosis Assessment Notes Treatment Notes Treatment Clinical Notes Nov, Allergic contact dermatitis due to plants, except food (ICD-10 - L23.7) [employer] Other 01-20-2023 Evaluation note* Encounter Date Diagnosis [...] prevent callus formation and to ease pain. [employer] Other 03-03-2021 NoteOPERATIVE NOTE OPERATION DATE: 08/24/2020 [...] in 10 years. CC: Waylon Byers DO. [facility] Signed and Approved by: DR QING VELEZ 08/31/2020 08:02:00[facility] noteNo InformationNoThe [facility] [employer] Other Evaluation noteNort [facility] Other Evaluation note* Diagnosis Onset Date Resolution Status Essential hypertension acute RANDEE (generalized anxiety disorder) acute Hypercholesterolemia acute Lumbar spondylosis acute Primary insomnia acute Type 2 diabetes mellitus with hyperglycemia acute [facility] Work Phone: Evaluation note* Diagnosis Onset [...] 10 8:22am Wellness examination acute 2024 8:22am [facility] Work Phone: Hisdykz general Narrative - Reported* Type Description Date [...] History COLONOSCOPY Hospitalization History SEE SURGICAL HX [facility] [employer] Other [facility] Other Hisdqyb general Narrative - Reported* Type Description Date [...] COLONOSCOPY 08/2020 Hospitalization History SEE SURGICAL HX [facility] [employer] Other Hospital Discharge instructionsAmbulatory Orders* Referral to Pain Management Location: None [facility] Work Phone: Summary Purpose Family History No [...] DATE CREATED AUTHOR AUTHOR'S CANDIE ATCASSIE 07/30/2024 [facility] REASON FOR VISIT (unrecogniz ed section and [...] BE BASED ON THE PRIMARY CLINICAL RECORDS. [facility] [employer] [facility]. provides no warranty or guarantee of the accuracy or completeness of information in this document.
--- NOTE | 2024-08-20 11:03 | P.CN_ITS ---
Consult Note: HPI Data of Consult Patient: known to practice within the last 3 years Requesting Physician: Sugar Mar NP Primary Care Provider: Waylon Alcala DO Consult Narrative Reason for consult: f/u Narrative: Milton Sánchez a pleasant 54 year old male presents for evaluation of chronic low back pain. Longstanding hx of low back pain without known injury. recent lumbar MRI with results below. 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 Pain today 0/10 increasing to 4/10 with activity and work. since last visit has noted significant improvement in pain and functional ability with celebrex 200mg BID without side effects. cc:: CC: Sugar Mar NP Review of Systems ROS Status of ROS 10 or more systems reviewed and unremark able except as noted in history and below Musculoskeletal Denies: back pain [facility] Medical History (Updated 08/20/24 @ 11:06 by Sugar Mar NP) Osteoarthritis ?M19.90 - Unspecified osteoarthritis, unspecified site (ICD-10) Diabetes ?E11.9 - Type 2 diabetes mellitus without complications (ICD-10) Asthma ?J45.909 - Unspecified asthma, uncomplicated (ICD-10) HTN (hypertension) ?I10 - Essential (primary) hypertension (ICD-10) Social History Little interest or pleasure in doing things: not at all Feeling down, depressed, or hopeless: not at all Meds Home Medications and Allergies Home Medications ?Medication ?Instructions ?Recorded ?Confirmed ?Type albuterol sulfate 90 mcg/actuation 2 inh inhalation Q8H PRN shortness 07/27/24 07/27/24 History aerosol inhaler of breath or wheezing ascorbic acid (vitamin C) 500 mg 500 mg PO DAILY 07/27/24 07/27/24 History tablet (Vitamin C) atorvastatin 80 mg tablet 80 mg PO DAILY 07/27/24 07/27/24 History celecoxib 200 mg capsule (Celebrex) 200 mg PO BID PRN pain #60 caps 07/27/24 Rx diphenhydramine HCl 25 mg tablet 25 mg PO DAILY PRN sleep 07/27/24 07/27/24 History ezetimibe 10 mg tablet 10 mg PO DAILY 07/27/24 07/27/24 History fluticasone 100 mcg-salmeterol 50 1 inh inhalation BID 07/27/24 07/27/24 History mcg/dose blistr powdr for inhalation (Shawnxela Inhub) levocetirizine 5 mg tablet 5 mg PO DAILY 07/27/24 07/27/24 History lisinopril 20 mg tablet 20 mg PO DAILY 07/27/24 07/27/24 History omega 2-ose-moe-fish oil 1,200 mg 1 cap PO DAILY 07/27/24 07/27/24 History (144 mg-216 mg) capsule (Fish Oil) tizanidine 4 mg tablet 4 mg PO DAILY PRN muscle spasticity 07/27/24 07/27/24 History trazodone 50 mg tablet 50 mg PO DAILY 07/27/24 07/27/24 History zinc 50 mg tablet 50 mg PO DAILY 07/27/24 07/27/24 History ibuprofen 600 mg tablet 600 mg PO QID PRN pain #20 tabs 08/10/24 Rx oxycodone-acetaminophen 5 mg-325 1 tab PO Q6H PRN pain 4 days #15 08/10/24 Rx mg tablet (Percocet) tabs Allergies Allergy/AdvReac Type Severity Reaction Status Date / Time No Known Drug Allergies Allergy Verified 07/27/24 14:36 Exam Constitutional Documenting provider has reviewed patient's vital signs: yes Common normals: no apparent distress, oriented x3, healthy appearing, alert and well nourished General appearance: cooperative [facility] Common normals: normocephalic, hearing grossly normal bilaterally and moist oral mucous membranes Head and scalp: normocephalic Eye Common normals: PERRL Pupil: PERRL Neck & C-Spine Common normals: full ROM General: normal visual inspection Chest Common normals: inspection of chest normal Respiratory Common normals: normal respiratory effort, no retractions and no use of accessory muscles Back & Pelvis Lumbar spine/lower back: normal to inspection, lumbar ROM normal and straight leg raise negative bilaterally; no pain with ROM and no lumbar spinal tenderness Sacroiliac joints: SI joints normal Other: strength 5/5 in BLE sensation intact BLE Neuro Common normals: oriented x3, CN's II-XII intact bilaterally, moves all extremities, no focal motor deficits, no sensory deficits noted and deep tendon reflexes 2+ bilaterally Sensorium/orientation: alert Motor exam: strength 5/5 throughout and no movement abnormalities noted Psych Common normals: mental status grossly normal, thought process normal, cooperative, affect normal, speech normal and activity/motor behavior normal Speech: normal speech Thought process: normal thought process Results Imaging Lumbar MRI: Attestation: I have reviewed the pertinent imaging results. Radiologist's impression: There is slight retrolisthesis of L2 on L3, L3 on L4 and L4 and L5. There are no acute compression fractures or marrow edema. There are degenerative endplate signal changes, greatest at L4-5. The conus medullaris is within normal limits for caliber, position and signal intensity. 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 There is slight nodular thickening of the adrenal limbs. No paraspinal soft tissue abnormalities are visualized. At T12-L1 and L1-2, there is no disc disease or stenosis. At L2-3, there is disc desiccation. There is minor annular disc bulging, greater toward the neural foramen. There is subtle thecal sac effacement. There is mild inferior foraminal encroachment, left greater than right. At L3-4, there is loss of disc height. There is mild annular disc bulging, greater toward the neural foramen. There is minor thecal sac effacement. Mild left and minimal right foraminal encroachment is seen. At L4-5, there is narrowing of the disc space. There is mild disco osteophytic bulging which also extends laterally. There is bilateral facet and ligamentous hypertrophy. Mild thecal sac effacement is present. Moderate foraminal impingement is noted, right greater than left. At the lumbosacral junction, slight loss of disc height is seen. Mild annular disc bulging is present, greater toward the neural foramen. There is mild facet hypertrophy. No thecal sac effacement is noted. Mild foraminal encroachment is present, left side slightly greater than right. Additional Findings Additional findings: If on a controlled substance or opioids, I have checked an [place] report on this patient and there are no aberrancies noted in the prescribing history.??If on a controlled substance or opioid a drug screen was completed and reviewed within the last year, and if there has not been a drug screen completed we ordered one today to monitor higher risk, state monitored pain medication use. As part of providing excellent, safe, comprehensive care, the following was completed at our patient's visit: 1. A medication reconciliation and review to ensure accurate knowledge of current/active medications, including asking our patients to inform us about any [id number] medications or herbal remedies/nutritional supplements/alternative remedies. 2. A review to specifically ensure our patients have had annual screening for screening for depression, screening for tobacco use, and screening for unhealthy alcohol use. For concerning screenings had a discussion with the patient, provided patient education, and recommended follow-up with primary care provider when appropriate. If patient noted with a risk of falling, they received education on strength, gait, and balance training to prevent future risk of falling. Portions of this note may have been carried over from the previous visit and updated as appropriate. Please note this office utilizes paper charting in addition to the electronic medical record. A list of current medications, vitals, and PMH is available there as the clinical staff outside of myself do not have access to [employer] charting during the clinic day operations. As part of providing quality comprehensive care the current medications, vitals, and PMH were reviewed in the paper chart. Assessment and Plan Assessment and Plan (1) Lumbar stenosis with neurogenic claudication: (2) Lumbar degenerative disc disease: (3) Lumbar spondylosis: Plan lumbar MRI reviewed with pt, pain stable and well controlled at this time continue HEP as tolerated continue current medications, risks vs benefits reviewed. encouraged PRN use of celebrex due to fci risks f/u 6 months, sooner if needed
== END 2024-08-20 10:36 | disposition home or self-care (01) ==
LOC: PM 10:36
PROVIDERS: PCP Internal Medicine; Visit Provider Nurse Practitioner
DX: M48.062 Spinal stenosis, lumbar region with neurogenic claudication (principal); M51.369 Other intervertebral disc degeneration, lumbar region without mention of lumbar back pain or lower extremity pain; M47.816 Spondylosis without myelopathy or radiculopathy, lumbar region; S42.401A Unspecified fracture of lower end of right humerus, initial encounter for closed fracture; S52.001A Unspecified fracture of upper end of right ulna, initial encounter for closed fracture
CPT/HCPCS: 73200; G0463

== ENCOUNTER 2024-08-20 11:07 | Outpatient (OUT) | payer OTHER, SELFPAY ==
--- NOTE | 2024-08-20 11:10 | CT_ITS ---
The [address] [address] Patient Name: ASHLIE PETTY MRN: [facility]:[id number] date: 1970 Sex: M Assigned Patient Location: CT Current Patient Location: PM Accession/Order Number: [id number] Exam Date: 08/20/2024 11:57 Report Date: 08/20/2024 12:08 At the request of: JATIN DUARTE MD Procedure: CT elbow RT wo con CT RIGHT ELBOW WITHOUT CONTRAST WITH 3-D RECONSTRUCTIONS CLINICAL DATA: Recent fell and has fracture of the proximal ulna. COMPARISON: Plain films 09/08/2023 Spiral images were obtained through the right elbow. Sagittal, coronal and 3-D volume rendered reconstructions were reviewed. This CT exam was performed using one or more following dose reduction techniques: Automated exposure control, adjustment of the mA and/or kV according to patient size, or use of iterative reconstruction technique. Patient was imaged with a posterior splint. There is a comminuted and mildly displaced fracture involving the coronoid process of the proximal ulna. This correlates with patient's recent plain films. There are some small calcific/ossific densities projecting at the olecranon fossa of the posterior humerus and within the soft tissues near the trochlea and medial humeral epicondyle. It is unclear if these are additional tiny fracture fragments. The imaged distal humerus and proximal radius are intact. No dislocation is seen. Mild soft tissue swelling is visualized. There is an elbow effusion. CT/CT elbow RT wo con IMPRESSION: COMMINUTED PROXIMAL ULNAR FRACTURE, DESCRIBED. ELBOW EFFUSION. Impression dictated by: Tana Chambers M.D.08/20/2024 12:08 PM Dictation Location: [facility] Electronically authenticated by: [id number] Y Date: 08/20/2024 12:08
--- OUTSIDE RECORDS SUMMARY | 2024-08-20 11:10 | XMS_ITS | CCD ---
Author Organization [facility] CliniSyct Care Team Providers Care Mix Chemist Name Role Phone FREDRICK, DR PHILIP Admitting [...] TAB PO Daily July 10, 2024 12:00am [place] 0-Euh-Tds-Fish Oil (Fish Oil) 60-90-500 mg capsule (1 source) Start: 07-10-2024 take 1 capsule by mouth once daily [place] 9-Gpd-Bor-Fish Oil (Fish Oil) 60-90-500 mg capsule Active [...] Drug Class(es) Dates Sig (Normalized) Sig (Original) [id number] 200 actuat albuterol 0.09 mg/actuat metered dose [...] / neomycin 3.5 mg/ml / polymyxin b [id number] unt/ml otic suspension (1 source) Aminoglycoside Antibacterial, Polymyxin-class Antibacterial, Corticosteroid Start: 04-27-2024 End: 07-10-2024 [id number] 3.5-10,000-1 mg/mL-unit/mL-% drops,suspension Discontinued 4 DROPS OTIC [...] Comprehensive Metabolic Pane emmett 07-23-2023 Albumin [Mass/Vol] 4.415303 g/dL Normal 3.4-5.0 g/dL [facility] [employer] Other ALP [Catalytic activity/Vol] 94 U/L Normal 46-116 U/L Merged With [facility] [employer] [place] Other ALT [Catalytic activity/Vol] 58 U/L Normal 16-63 U/L Merged [facility] [employer] [place] Other Anion gap [Moles/Vol] 10.6 mmol/L Merged [facility] [employer] [place] Other AST [Catalytic activity/Vol] 28 U/L Normal 15-37 U/L Merged [facility] [employer] [place] Other Bilirubin [Mass/Vol] 0.6247776 mg/dL Normal 0.2-1.0 mg /dL Merged With [facility] [employer] [place] Other Calcium [Mass/Vol] 9.8885207 mg/dL Normal 8.5-10.1 mg/ dL Merged [facility] [employer] Other Chloride [Moles/Vol] 103 mmol/L Normal 98-107 mmol/L [facility] [employer] Other CO2 [Moles/Vol] 30.81746321 mmol/L Normal 21.0-3 2.0 mmol/L [place] [employer] Other Creatinine [Mass/Vol] 0.70990991 mg/dL Low 0.70-1.30 mg/dL [place] [employer] Other Glucose [Mass/Vol] 114 mg/dL High 74-106 mg/dL [facility] [employer] [place] Other Potassium [Moles/Vol] 3.17161256 mmol/L Normal 3.5-5.1 mmol/L [place] [employer] Other Protein [Mass/Vol] 8.375634 g/dL Normal 6.4-8.2 g/dL [employer] Other Sodium [Moles/Vol] 140 mmol/L Normal 136-145 mmol/L [facility] [employer] [place] Other Urea nitrogen [Mass/Vol] 9.5494853 mg/dL Normal 7.0-18.0 mg/dL Merged [facility] [employer] [place] Other Urea nitrogen/Creatinine [Mass ratio] 13.0 mg/mg Merged With [facility] [employer] [place] Other Comprehensive Metabolic Panel 4.0 g/dL Merged [facility] [employer] [place] Other Comprehensive Metabolic Panel 1.0 Merged With [facility] [employer] [place] Other Comprehensive Metabolic Panel see note Merged With [facility] [employer] [place] Other Comprehensive Metabolic Panel >60 >=60 Merged With [facility] [employer] [place] Other Lipid Panelon 07-23-2023 Cholesterol [Mass/Vol] 166 mg/dL <=200 mg/dL Merged [facility] [employer] [place] Other Cholesterol in HDL [Mass/Vol] 44 mg/dL Normal 40-60 mg/dL Merged [facility] [employer] Other Triglyceride [Mass/Vol] 114 mg/dL <=150 mg/dL Merg[facility] [employer] [place] Other Lipid Panel 99.2 mg/dL Merged [facility] [employer] Other Lipid Panel 22.8 mg/dL Merged With [facility] [employer] Other Lipid Panel 3.8 Merged With [facility] [employer] [place] Other PSA SCREENINGon 07-23-2023 PSA SCREENING 1.10 ng/mL <=4.00 ng/mL [facility] [employer] [place] Other Comprehensive Metabolic Pane emmett 07-13-2022 Albumin [Mass/Vol] 4.1 g/dL Merged [facility] [employer] Other Calcium [Mass/Vol] 9.9 mg/dL Merged [facility] [employer] [place] Other Chloride [Moles/Vol] 101 mmol/L [facility] [employer] Other CO2 [Moles/Vol] 30.6 mmol/L [facility] [employer] [place] Other Creatinine [Mass/Vol] 0.65 mg/dL Merged [facility] [employer] Other Creatinine [Mass/Vol] 21.5 mg/dL [facility] Other Glucose [Mass/Vol] 135 mg/dL [facility] Other Potassium [Moles/Vol] 4.2 mmol/L [facility] Other Sodium [Moles/Vol] 139 mmol/L [facility] Other Urea nitrogen [Mass/Vol] 14.0 mg/dL [facility] Other Comprehensive Metabolic Panel [facility] Other Comprehensive Metabolic Panel >60 [facility] Other Comprehensive Metabolic Panel 7.8 [facility] Other Comprehensive Metabolic Panel 3.7 [facility] Other CBC AUTO DIFFon 07-21-2021 BASO # 0.1 103/ul Normal 0.0-0.1 [facility] Comment on above: Performed By: #### C BC #### [facility] [address] [place] [address] Dr. Iliana Condon Basophils/100 WBC (Bld) 1.1 % Normal 0.2-2.0 [facility] Comment on above: Performed By: #### C BC #### [facility] [address] [place] [address] Dr. Iliana Condon EO # 0.2 103/ul Normal 0.0-0.7 [facility] Comment on above: Performed By: #### C BC #### [facility] [address] [address] [address] Iliaan Condon Eosinophils/100 WBC (Bld) 4.2 % Normal 0.9-7.0 [facility] Comment on above: Performed By: #### C BC #### [facility] [address] [place] [address] Dr. Iliana Condon Erythrocyte distribution width (RBC) [Ratio] 13.2 % Normal 11.0-15.0 [facility] Comment on above: Performed By: #### C BC #### [facility] [address] [place] [address] Dr. Iliana Condon Hematocrit (Bld) [Volume fraction] 47.5 % Normal 42.0-54.0 [facility] Comment on above: Performed By: #### C BC #### [facility] [address] [place] [address] Dr. Iliana Condon Hemoglobin (Bld) [Mass/Vol] 16.2 g/dL Normal 14.0-18.0 [facility] Comment on above: Performed By: #### C BC #### [facility] [address] [place] [address] Dr. Iliana Condon IG # 0.01 10e3/ul Normal 0.00-0.03 [facility] Comment on above: Performed By: #### C BC #### [facility] [address] [place] [address] Dr. Iliana Condon IG % 0.2 % Normal 0.0-0.5 [facility] Comment on above: Performed By: #### C BC #### [facility] [address] [place] [address] Dr. Iliana Condon LYMPH # 1.5 103/ul Normal 1.2-3.8 [facility] Comment on above: Performed By: #### C BC #### [facility] [address] [place] [address] Dr. Iliana Condon Lymphocytes/100 WBC (Bld) 28.6 % Normal 20.5-60.0 [facility] Comment on above: Performed By: #### C BC #### [facility] [address] [place] [address] Dr. Iliana Condon MANUAL DIFF REQ NO Normal [facility] Comment on above: Performed By: #### C BC #### [facility] [address] [place] [address] Dr. Iliana Condon MCH (RBC) [Entitic mass] 31.8 pg Normal 25.9-34.0 [facility] Comment on above: Performed By: #### C BC #### [facility] [address] [address] [address] Iliana Condon MCHC (RBC) [Mass/Vol] 34.1 g/dL Normal 29.9-35.2 [facility] Comment on above: Performed By: #### C BC #### [facility] [address] [place] [address] Dr. Iliana Condon MCV (RBC) [Entitic vol] 93.1 fL Normal 80.0-94.0 [facility] Comment on above: Performed By: #### C BC #### [facility] [address] [place] [address] Dr. Iliana Condon MONO # 0.7 103/ul Normal 0.3-0.8 [facility] Comment on above: Performed By: #### C BC #### [facility] [address] [place] [address] Dr. Iliana Condon Monocytes/100 WBC (Bld) 12.6 % Critically high 1.7-12.0 [facility] Comment on above: Performed By: #### C BC #### [facility] [address] [place] [address] Dr. Iliana Condon NEUT # 2.8 103/ul Normal 1.4-6.5 [facility] Comment on above: Performed By: #### C BC #### [facility] [address] [place] [address] Dr. Iliana Condon Neutrophils/100 WBC (Bld) 53.3 % Normal 43.0-75.0 [facility] Comment on above: Performed By: #### C BC #### [facility] [address] [place] [address] Dr. Iliana oCndon Platelet mean volume (Bld) [Entitic vol] 9.4 fL Critically low 9.5-13.5 [facility] Comment on above: Performed By: #### C BC #### [facility] [address] [place] [address] Dr. Iliana Condon PLT 224 103/ul Normal 150-450 [facility] Comment on above: Performed By: #### C BC #### [facility] [address] [place] [address] Dr. Iliana Condon RBC 5.10 106/ul Normal 4.70-6.10 [facility] Comment on above: Performed By: #### C BC #### [facility] [address] [place] [address] Dr. Iliana Condon WBC 5.2 103/ul Normal 4.0-11.0 [facility] Comment on above: Performed By: #### C BC #### [facility] [address] [place] [address] Dr. Iliana Condon GLYCOHEMOGLOBIN A1Con 2021 ADA RECOMMENDATION ADA THERAPEUTIC TARGET 6.0 - 7.0 ACTION SUGGESTED > 7.0 Normal [facility] Comment on above: Performed By: #### A 1C #### [facility] [address] [place] [address] Dr. Iliana Condon Glucose [Mass/Vol] 140 mg/dL Normal [facility] Comment on above: Performed By: #### A 1C #### [facility] [address] [place] [address] Dr. Iliana Condon HbA1c (Bld) [Mass fraction] 6.5 % Critically high <=6.0 [facility] Comment on above: Performed By: #### A 1C #### [facility] [address] [place] [address] Dr. Iliana Condon LIPID PROFILEon 07-21-2021 CHOL-HDL RATIO NORM SEE BELOW Normal [facility] Comment on above: Result Comment: 3.3 - 4.4 LOW RISK 4.4 - 7.1 AVERAGE RISK 7.1 - 11.0 MODERATE RISK >11.0 HIGH RISK Performed By: #### L IPID, CMP #### [facility] [address] [place] [address] Dr. Iliana Condon Cholesterol [Mass/Vol] 233 mg/dL Critically high <=200 [facility] Comment on above: Performed By: #### L IPID, CMP #### [facility] [address] [place] [address] Dr. Iliana Condon Cholesterol in HDL [Mass/Vol] 57 mg/dL Normal [facility] Comment on above: Performed By: #### L IPID, CMP #### [facility] [address] [address] [address] Iliana Condon Cholesterol in LDL [Mass/Vol] 128.4 mg/dL Normal [facility] Comment on above: Performed By: #### L IPID, CMP #### [facility] [address] [place] [address] Dr. Iliana Condon Cholesterol.total/Ch olesterol in HDL [Mass ratio] 4.1 {ratio} Normal [facility] Comment on above: Performed By: #### L IPID, CMP #### [facility] [address] [place] [address] Dr. Iliana Condon HDL NORMAL > or = 60 mg/dl - LOW CARDIOVASCULAR RISK <40 mg/dl - HIGH CARDIOVASCULAR RISK Normal [facility] Comment on above: Performed By: #### L IPID, CMP #### [facility] [address] [place] [address] Dr. Iliana Condon LDL CALC NORMAL SEE BELOW Normal [facility] Comment on above: Result Comment: <100 mg/dl OPTIMAL 100 - 129 mg/dl NEAR OR ABOVE OPTIMAL 130 - 159 mg/dl BORDERLINE HIGH 160 - 189 mg/dl HIGH >190 mg/dl VERY HIGH Performed By: #### L IPID, CMP #### [facility] [address] [place] [address] Dr. Iliana Condon Triglyceride [Mass/Vol] 238 mg/dL Critically high <=150 [facility] Comment on above: Performed By: #### L IPID, CMP #### [facility] [address] [place] [address] Dr. Iliana Condon VLDL CALC 47.6 mg/dL Normal [facility] Comment on above: Performed By: #### L IPID, CMP #### [facility] [address] [place] [address] Dr. Iliana Condon MICROALBUMIN, RAND URon 01-2 mALB 21.2 mg/L Normal <=30.0 [facility] Comment on above: Performed By: #### M ALBR #### [facility] [address] [address] [address] Iliana Condon PROF 14(COMP METB)on 022 Albumin [Mass/Vol] 4.2 g/dL Normal 3.5-5.0 [facility] Comment on above: Performed By: #### L IPID, CMP #### [facility] [address] [place] [address] Dr. Iliana Condon Albumin/Globulin [Mass ratio] 1.1 {ratio} Normal [facility] Comment on above: Performed By: #### L IPID, CMP #### [facility] [address] [place] [address] Dr. Iliana Condon ALP [Catalytic activity/Vol] 97 U/L Normal 38-126 [facility] Comment on above: Performed By: #### L IPID, CMP #### [facility] [address] [place] [address] Dr. Iliana Condon ALT [Catalytic activity/Vol] 62 U/L Normal 21-72 [facility] Comment on above: Performed By: #### L IPID, CMP #### [facility] [address] [place] [address] Dr. Iliana Condon Anion gap [Moles/Vol] 13.6 mmol/L Normal [facility] Comment on above: Performed By: #### L IPID, CMP #### [facility] [address] [place] [address] Dr. Iliana Condon AST [Catalytic activity/Vol] 34 U/L Normal 17-59 [facility] Comment on above: Performed By: #### L IPID, CMP #### [facility] [address] [place] [address] Dr. Iliana Condon Bilirubin [Mass/Vol] 0.6 mg/dL Normal 0.2-1.3 [facility] Comment on above: Performed By: #### L IPID, CMP #### [facility] [address] [place] [address] Dr. Iliana Condon Calcium [Mass/Vol] 10.2 mg/dL Normal 8.4-10.2 [facility] Comment on above: Performed By: #### L IPID, CMP #### [facility] [address] [address] [address] Iliana Condon Chloride [Moles/Vol] 100 mmol/L Normal 98-107 [facility] Comment on above: Performed By: #### L IPID, CMP #### [facility] [address] [address] [address] Iliana Condon CO2 [Moles/Vol] 27.2 mmol/L Normal 22.0-30.0 [facility] Comment on above: Performed By: #### L IPID, CMP #### [facility] [address] [address] [address] Iliana Condon Creatinine [Mass/Vol] 0.61 mg/dL Critically low 0.66-1.25 [facility] Comment on above: Performed By: #### L IPID, CMP #### [facility] [address] [address] [address] Iliana Condon EGFR-AF MOROCCAN >60 Normal >=60 [facility] Comment on above: Performed By: #### L IPID, CMP #### [facility] [address] [address] [address] Iliana Condon EGFR-NON AF MOROCCAN >60 Normal >=60 [facility] Comment on above: Performed By: #### L IPID, CMP #### [facility] [address] [place] [address] Dr. Iliana Condon Globulin (S) [Mass/Vol] 3.8 g/dL Normal [facility] Comment on above: Performed By: #### L IPID, CMP #### [facility] [address] [address] [address] Iliana Condon Glucose [Mass/Vol] 103 mg/dL Normal 74-106 [facility] Comment on above: Performed By: #### L IPID, CMP #### [facility] [address] [address] [address] Iliana Condon Potassium [Moles/Vol] 4.8 mmol/L Normal 3.4-5.0 [facility] Comment on above: Performed By: #### L IPID, CMP #### [facility] [address] [place] [address] Dr. Iliana Condon Protein [Mass/Vol] 8.0 g/dL Normal 6.1-8.2 [facility] Comment on above: Performed By: #### L IPID, CMP #### [facility] [address] [place] [address] Dr. Iliana Condon Sodium [Moles/Vol] 136 mmol/L Critically low 137-145 [facility] Comment on above: Performed By: #### L IPID, CMP #### [facility] [address] [place] [address] Dr. Iliana Condon Urea nitrogen [Mass/Vol] 15.0 mg/dL Normal 9.0-20.0 [facility] Comment on above: Performed By: #### L IPID, CMP #### [facility] [address] [place] [address] Dr. Iliana Condon Urea nitrogen/Creatinine [Mass ratio] 24.6 mg/mg Normal [facility] Comment on above: Performed By: #### L IPID, CMP #### [facility] [address] [place] [address] Dr. Iliana Condon Covid-19 PCR ([facility])on 06-24 SARS-CoV-2 (COVID-19) RNA TRISTA+probe Ql (Unsp spec) Not detected Normal NOT DETECTED [facility] Comment on above: Result Comment: This test is not yet approved or cleared by the [place] FDA. When there are no FDA-approved or cleared tests available, and other criteria are met, FDA can make tests available under an emergency access mechanism called an Emergency Use Authorization (EUA). The EUA for this test is supported by the [place] of Health and Human Service's (HHS's) declaration [...] SARS-CoV-2. Performed By: #### C VDTB #### [facility] [address] [place] [address] [id number] [address] Iliana Condon Covid-19 PCR ([facility])on 07-26 SARS-CoV-2 (COVID-19) RNA TRISTA+probe Ql (Unsp spec) Not detected Normal NOT DETECTED [facility] Comment on above: Result Comment: This test is not yet approved or cleared by the [place] FDA. When there are no FDA-approved or cleared tests available, and other criteria are met, FDA can make tests available under an emergency access mechanism called an Emergency Use Authorization (EUA). The EUA for this test is supported by the [place] of Health and Human Service's (HHS's) declaration [...] SARS-CoV-2. Performed By: #### C VDTB #### [facility] [address] [place] [id number] Renetta Fajardo Vital Signs Date Time Vital Sign Value Performing Clinician Facility 07-10-2024 08:38-0500 Body height 162.56 cm [facility] 07-10-2024 08:38-0500 Body mass index (BMI) [Ratio] 22.8 kg/m2 [facility] 07-10-2024 08:38-0500 Body weight 60.38 kg [facility] 07-10-2024 08:38-0500 Diastolic blood pressure 86 mm[Hg] [facility] 07-10-2024 08:38-0500 Heart rate 93 /min [facility] 07-10-2024 08:38-0500 Respiratory rate 12 /min [facility] 07-10-2024 08:38-0500 Systolic blood pressure 138 mm[Hg] [facility] 03-09-2024 15:47-0400 Body height 162.56 cm [facility] 03-09-2024 15:47-0400 Body mass index (BMI) [Ratio] 22.1 kg/m2 [facility] 03-09-2024 15:47-0400 Body weight 58.57 kg [facility] 03-09-2024 15:47-0400 Diastolic blood pressure 89 mm[Hg] [facility] 03-09-2024 15:47-0400 Heart rate 103 /min [facility] 03-09-2024 15:47-0400 Respiratory rate 12 /min [facility] 03-09-2024 15:47-0400 Systolic blood pressure 139 mm[Hg] [facility] 11-08-2023 10:02-0400 Body height 162.56 cm [facility] 11-08-2023 10:02-0400 Body mass index (BMI) [Ratio] 21.8 kg/m2 [facility] 11-08-2023 10:02-0400 Body weight 57.66 kg [facility] 11-08-2023 10:02-0400 Diastolic blood pressure 83 mm[Hg] [facility] 11-08-2023 10:02-0400 Heart rate 101 /min [facility] 11-08-2023 10:02-0400 Respiratory rate 12 /min [facility] 11-08-2023 10:02-0400 Systolic blood pressure 127 mm[Hg] [facility] 07-23-2023 08:30-0500 Body height 162.56 cm Waylon Ball Other [facility] Other 07-23-2023 08:30-0500 Body mass index (BMI) [Ratio] 20.42 kg/m2 [facility] Other [facility] Other 07-23-2023 08:30-0500 Body weight 53.98 kg Waylon Ball Other [facility] Other 07-23-2023 08:30-0500 Diastolic blood pressure 84 mm[Hg] Way[facility] Ball Other [facility] Other 07-23-2023 08:30-0500 Respiratory rate 12 /min Way[facility] Ball Other [facility] Other 07-23-2023 08:30-0500 Systolic blood pressure 133 mm[Hg] [facility] Ball Other [facility] Other 2023 09:00-0400 Body height 162.56 cm Waylon Ball Other [facility] Other 2023 09:00-0400 Body mass index (BMI) [Ratio] 21.54 kg/m2 Way[facility] Other [facility] Other 2023 09:00-0400 Body weight 56.93 kg Waylon Ball Other [facility] Other 2023 09:00-0400 Diastolic blood pressure 80 mm[Hg] Waylon Ball Other [facility] Other 2023 09:00-0400 Respiratory rate 12 /min Waylon Ball Other [facility] Other 2023 09:00-0400 Systolic blood pressure 130 mm[Hg] Waylon Ball Other [facility] Other 12-19-2022 15:45-0400 Body height 162.56 cm Waylon Ball Other [facility] Other 12-19-2022 15:45-0400 Body mass index (BMI) [Ratio] 21.83 kg/m2 Waylon Ball Other [facility] Other 12-19-2022 15:45-0400 Body weight 57.7 kg Waylon Ball Other [facility] Other 12-19-2022 15:45-0400 Diastolic blood pressure 84 mm[Hg] Waylon Ball Other [facility] Other 12-19-2022 15:45-0400 Respiratory rate 12 /min Waylon Ball Other [facility] Other 12-19-2022 15:45-0400 Systolic blood pressure 134 mm[Hg] Waylon Ball Other [facility] Other 07-13-2022 09:30-0500 Body height 162.56 cm Waylon Ball Other [facility] Other 07-13-2022 09:30-0500 Body mass index (BMI) [Ratio] 22.04 kg/m2 Waylon Ball Other [facility] Other 07-13-2022 09:30-0500 Body weight 58.24 kg Waylon Ball Other [facility] Other 07-13-2022 09:30-0500 Diastolic blood pressure 76 mm[Hg] Waylon Ball Other [facility] Other 07-13-2022 09:30-0500 Respiratory rate 12 /min Waylon Ball Other [facility] Other 07-13-2022 09:30-0500 Systolic blood pressure 122 mm[Hg] Waylon Ball Other [facility] Other Encounters Encounter Date Encounter Type Care Provider Facility Start: 07-27-2024 End: 07-27-2024 ambulatory Roc Romo MD Facility: [facility] Start: 07-10-2024 End: 07-10-2024 ambulatory [facility] Work Phone: Start: 07-10-2024 End: 07-10-2024 Encounter for general adult medical examination without abnormal findings [facility] Start: 07-10-2024 End: 07-10-2024 Patient encounter procedure [facility] Physician [facility] Work Phone: Start: 07-07-2024 Patient encounter status [facility] Start: 03-09-2024 End: 03-09-2024 ambulatory [facility] Work Phone: Start: 03-09-2024 End: 03-09-2024 Patient encounter procedure [facility] Physician [facility] Work Phone: Start: 11-08-2023 End: 11-08-2023 ambulatory [facility] Work Phone: Start: 11-08-2023 End: 11-08-2023 Patient encounter procedure [facility] Physician [facility] Work Phone: Start: 08-22-2023 Non-patient / Non-visit [facility] Physician [facility] Work Phone: Start: 07-23-2023 End: 07-23-2023 ambulatory Waylon Byers Other [facility] Other Start: 07-23-2023 Encounter for genera l adult medical examination without abnormal findings Waylon Byers [facility] Start: 07-23-2023 Periodic preventive med est patient 40-64yrs Waylon Byers [facility] Start: 07-23-2023 Telephone encounter Waylon Byers [facility] Start: 02-26-2023 End: 02-26-2023 ambulatory Waylon Byers Other [facility] Other Start: 02-26-2023 Telephone encounter Waylon Byers [facility] Start: 2023 End: 2023 ambulatory Waylon Fredrick Other [facility] Other Start: 2023 Patient encounter procedure Waylon Byers [facility] Start: 12-19-2022 End: 12-19-2022 ambulatory Waylon Fredrick Other [facility] Other Start: 12-19-2022 Office outpatient vi sit 15 minutes Waylon Byers [facility] Start: 12-18-2022 End: 12-18-2022 ambulatory Waylon Fredrick Other [facility] Other Start: 12-18-2022 Telephone encounter Waylon Byers [facility] Start: 12-14-2022 End: 12-14-2022 ambulatory Waylon Byers Other [facility] Other Start: 12-14-2022 Telephone encounter Waylon Byers [facility] Start: 07-29-2022 End: 07-29-2022 ambulatory Waylon Byers Other [facility] Other Start: 07-29-2022 Telephone encounter Waylon Byers [facility] Start: 07-13-2022 End: 07-13-2022 ambulatory Waylon Fredrick Other [facility] Other Start: 07-13-2022 Encounter for genera l adult medical examination without abnormal findings Waylon Byers [facility] Start: 07-13-2022 Periodic preventive med est patient 40-64yrs Waylon Byers [facility] Start: 07-25-2021 Encounter for genera l adult medical examination without abnormal findings DR WAYLON BYERS [facility] Start: 07-21-2021 End: 07-22-[address] WAYLON BYERS Facility: Start: 07-21-2021 End: 07-22-2021 Encounter for general adult medical examination without abnormal findings DR WAYLON BYERS Facility:[facility] Start: 07-07-2021 End: 07-07-[address] WAYLON BYERS Facility:[facility] Start: 06-23-[address] WAYLON BYERS Facili ty:[facility] Start: 08-25-2020 Encounter for preprocedural laboratory examination DR QING VELEZ [facility] Start: 08-24-2020 End: 08-24-[address] QING VELEZ Facility:[facility] Start: 08-20-2020 End: 08-21-[address] QING VELEZ Facility:[facility] Start: 08-20-2020 End: 08-21-2020 Encounter for preprocedural laboratory examination DR QING VELEZ Facility:[facility] Procedures Date Procedure Procedure Detail Performing Clinician Start: 07-21-[address] EDUARDO IN [place] Comment on above: Performed By: #### [facility] #### [facility] [address] [place] [address] Dr. Iliana Condon Depression screening Nany Byers Other Plan of Treatment Date Care Activity Detail Author Start: 07-10-2024 Patient referral [facility] Work Phone: Comprehensive metabo lic 2000 panel - Serum or Plasma [facility] Patient Education Low back pain in adults [facility] Work Phone: Patient referral [facility] Work Phone: XR Lumbar spine Views [facility] Immunizations Immunization Date Immunization Notes Care Provider Fa greer 03-09-2024 influenza, seasonal, injectable, preservative free [facility] 2023 influenza, injectabl e, quadrivalent, preservative free Waylon Byers Other [facility] 03-07-2022 influenza virus vaccine, split virus (incl. purified surface antigen) Waylon Byers Other [facility] Other 03-07-2022 influenza virus vaccine, unspecified formulation [facility] 05-27-2020 zoster vaccine, live Nany Byers Other [facility] 03-03-2020 zoster vaccine, live Benjami andrew Byers Other [facility] 02-23-2020 influenza virus vaccine, split virus (incl. purified surface antigen) Waylon Byers Other Merged With [facility] [employer] Other 02-23-2020 influenza virus vaccine, unspecified formulation [facility] Payers Date Payer Category Payer Unknown 1970 Unknown [id number] 2.16.84 [id number] 1970 Unknown [id number] 2.16.84 [id number] 1970 Unknown [id number] 2.16.84 [id number] 1970 Unknown [id number] 2.16.84 [id number] 1970 Unknown [id number] 2.16.84 [id number] 1970 Unknown [id number] [id number] 1959 Self-pay 1959 Unknown [id number] Unknown [id number] 2.16.8 [id number] Social History Date Type Detail Facility Sex Assigned At Merged With [facility] [employer] [facility] Other Start: 08-22-2023 End: 08-22-2023 Tobacco smoking status NHIS Ex-smoker (finding) [facility] Start: 1970 Sex Assigned At Male [facility] Start: 07-10-2024 Sex Male (finding) [facility] Medical Equipment Procedure Code Equipment Code [...] PSA (prostate specific antigen) (ICD-10 - Z12.5) [facility] Other 09-01-2023 Evaluation note* Encounter Date Diagnosis [...] bedtime. Continue TRazodone, which has been beneficial [facility] Other 06-23-2023 Evaluation note* Encounter Date Diagnosis Assessment Notes Treatment Notes Treatment Clinical Notes Nov, Allergic contact dermatitis due to plants, except food (ICD-10 - L23.7) [facility] Other 01-20-2023 Evaluation note* Encounter Date Diagnosis [...] prevent callus formation and to ease pain. [facility] Other 03-03-2021 NoteOPERATIVE NOTE OPERATION DATE: 08/24/2020 [...] in 10 years. CC: Waylon Byers DO. [facility] Signed and Approved by: DR QING VELEZ 08/31/2020 08:02:00[facility] [employer] Other Evaluation noteNort [place] Other Evaluation note* Diagnosis Onset Date Resolution Status Essential hypertension acute RANDEE (generalized anxiety disorder) acute Hypercholesterolemia acute Lumbar spondylosis acute Primary insomnia acute Type 2 diabetes mellitus with hyperglycemia acute [facility] Work Phone: Evaluation note* Diagnosis Onset Date [...] 10 8:22am Wellness examination acute 2024 8:22am [facility] Work Phone: Hisycgt general Narrative - Reported* Type Description Date [...] History COLONOSCOPY Hospitalization History SEE SURGICAL HX Merged With [facility] [employer] [place] Other [facility] [place] Other Hiswzlq general Narrative - Reported* Type Description Date [...] COLONOSCOPY 08/2020 Hospitalization History SEE SURGICAL HX Merged With [facility] [employer] [place] Other Hospital Discharge instructionsAmbulatory Orders* Referral to Pain Management Location: None [facility] Work Phone: Summary Purpose Family History No [...] DATE CREATED AUTHOR AUTHOR'S CANDIE ATCASSIE 07/30/2024 [facility] REASON FOR VISIT (unrecogniz ed section [...] BE BASED ON THE PRIMARY CLINICAL RECORDS. [facility]. provides no warranty or guarantee of the accuracy or completeness of information in this document.
== END 2024-08-20 11:08 | disposition home or self-care (01) ==
LOC: CT 11:08
PROVIDERS: PCP Internal Medicine; Visit Provider Orthopaedic Surgery
DX: S42.401A Unspecified fracture of lower end of right humerus, initial encounter for closed fracture (principal); S52.001A Unspecified fracture of upper end of right ulna, initial encounter for closed fracture
CPT/HCPCS: 73200

== ENCOUNTER 2024-11-06 09:32 | Outpatient (OUT) | payer OTHER, SELFPAY ==
--- OUTSIDE RECORDS SUMMARY | 2024-11-06 09:53 | XMS_ITS | CCD ---
Author Organization [facility] Care Team Providers Care Table Hand Name Role Phone FREDRICK, DR PHILIP Admitting [...] (Original) ascorbic acid 500 mg oral tablet (2 sources) Vitamin C Start: 07-10-2024 take 1 tablet by mouth once daily Ascorbic Acid (Vitamin C) 500 mg tablet Active 500 MG PO Daily July 10, 2024 1:00am diphenhydrAMINE hydrochloride 25 mg oral tablet (2 sources) Histamine-1 Receptor Antagonist Start: 07-10-2024 take 1 tablet by mouth once daily at bedtime as needed Diphenhydramine Hcl (Benadryl Allergy) 25 mg tablet Active 25 MG PO Daily at bedtime as needed July 10, 2024 1:00am ezetimibe 10 mg oral tablet (2 sources) Dietary Cholesterol Absorption Inhibitor Start: 07-14-2024 End: 07-14-2024 take 1 tablet by mouth once daily Ezetimibe 10 mg tablet Active 10 MG PO Daily 90 90 July 14, 2024 6:01pm Fluticasone Propion-Salmeterol (16 sources) Corticosteroid, beta2-Adrenergic Agonist Start: 07-16-2024 take 1 puff(s) by mouth twice daily Fluticasone Propion-Salmeterol (Wixela Inhub) 250-50 mcg/dose blister with device Active 0 .ROUTE .COMPLEX 180 July 16, 2024 7:51am INHALE 1 PUFF BY MOUTH TWICE DAILY Start: 07-10-2024 End: 07-16-2024 Fluticasone Propion-Salmeter ol 250-50 mcg/dose blister with device Discontinued 1 INH INHALATION Twice daily 180 July 10, 2024 9:55am July 16, 2024 7:51am Start: 11-06-2023 End: 07-10-2024 Fluticasone Propion-Salmeter ol 250-50 mcg/dose blister with device Discontinued 1 INH INHALATION Twice daily November 06, 2023 12:00am July 10, 2024 9:56am Start: 11-06-2023 End: 07-10-2024 Fluticasone Propion-Salmeter ol [...] Active levocetirizine dihydrochloride 5 mg oral tablet (4 sources) Histamine-1 Receptor Antagonist Start: 07-10-2024 End: 07-10-2024 take 1 tablet by mouth once daily in the evening Levocetirizine (Xyzal) 5 mg tablet Active 5 MG PO Every evening July 10, 2024 9:55am lisinopril 20 mg oral tablet (20 sources) Angiotensin Converting Enzyme Inhibitor Start: 08-21-2024 take 1 tablet by mouth once daily Lisinopril 20 mg tablet Active 0 .ROUTE .COMPLEX August 21, 2024 7:56am TAKE 1 TABLET BY MOUTH EVERY DAY Start: 09-05-2023 End: 08-21-2024 take 1 tablet by mouth once daily Lisinopril 20 mg tablet Discontinued 20 MG PO Daily 90 90 July 10, 2024 9:56am August 21, 2024 7:56am take 1 tablet by darcy th every twenty-four hours Lisinopril 20 MG 1 tablet Orally Once a day for 90 days Active magnesium glycinate 100 mg oral tablet (2 sources) Start: 07-10-2024 take 1 tablet by mouth once daily Magnesium Glycinate 100 mg tablet Active 100 MG PO Daily July 10, 2024 1:00am Multivitamin tablet (2 sources) Start: 07-10-2024 take 1 tablet by mouth once daily Multivitamin tablet Active 1 TAB PO Daily July 10, 2024 1:00am Start: 07-10-2024 take 1 tablet by darcy th once daily Multivitamin tablet Active 1 TAB PO Daily July 10, 2024 12:00am Loma 1-Yuy-Fbq-Fish Oil (Fish Oil) 60-90-500 mg capsule (2 sources) Start: 07-10-2024 take 1 capsule by mouth once daily Loma 0-Hqr-Qnc-Fish Oil (Fish Oil) 60-90-500 mg capsule Active 1 CAP PO Daily July 10, 2024 1:00am Start: 07-10-2024 take 1 capsule by mo uth once daily Loma 9-Inv-Pwz-Fish Oil (Fish Oil) 60-90-500 mg capsule Active 1 CAP PO Daily July 10, 2024 12:00am traZODone hydrochloride 50 mg oral tablet (17 sources) Serotonin Reuptake Inhibitor Start: 07-10-2024 take 1 tablet by mouth once daily at bedtime Trazodone 50 mg tablet Active 50 MG PO Daily at bedtime 90 July 10, 2024 9:50am Start: 06-03-2024 End: 07-10-2024 Trazodone 50 mg tablet Disco ntinued 0 .ROUTE .COMPLEX 45 June 03, 2024 8:04am July 10, 2024 9:54am TAKE 1 AND 1/2 TABLETS BY MOUTH AT BEDTIME Start: 11-06-2023 End: 06-03-2024 Trazodone 50 mg tablet Disco ntinued 75 MG PO Daily at bedtime November 06, 2023 12:00am June 03, 2024 8:04am Start: 11-06-2023 take 75 mg by mouth once daily at bedtime Trazodone Active 75 MG PO Daily at bedtime November 06, 2023 12:00am traZODone HCl 50 MG 1 1/2 Orally q HS for 30 days Active ZINC CITRATE (2 sources) Start: 07-10-2024 Zinc Citrate 1 6.7 mg tablet,chewable Active MG PO July 10, 2024 1:00am Start: 07-10-2024 Zinc Citrate 1 6.7 mg tablet,chewable Active MG PO July 10, 2024 12:00am Completed/Discontinued Medications Medication Drug Class(es) Dates Sig (Normalized) Sig (Original) [id number] 200 actuat albuterol 0.09 mg/actuat metered dose inhaler (15 sources) beta2-Adrenergic Agonist Start: 11-06-2023 End: 07-10-2024 take 1 puff(s) by inhalation every six hours as needed Albuterol Sulfate 90 mcg/actuation HFA aerosol inhaler Discontinued 2 PUFF INHALATION Every 6 hours as needed November 06, 2023 12:00am July 10, 2024 9:41am take 2 puff(s) by in halation every [...] Inhalation every 4 hrs 90 MCG Active atorvastatin 80 mg oral tablet (19 sources) HMG-CoA Reductase Inhibitor Start: 09-05-2023 End: 07-10-2024 take 1 tablet by mouth once daily Atorvastatin 80 mg tablet Discontinued 80 MG PO Daily 90 90 September 05, 2023 12:40pm July 10, 2024 9:56am take 1 tablet by darcy th every twenty-four hours Atorvastatin Calcium 80 MG 1 tablet Oral ly Once a day for 90 days Active busPIRone hydrochloride 7.5 mg oral tablet (13 sources) Start: 11-06-2023 End: 07-10-2024 take 1 tablet by mouth once daily Buspirone 7.5 mg tablet Discontinued 7.5 MG PO Daily November 06, 2023 12:00am July 10, 2024 9:41am take 1 tablet by darcy th every twenty-four hours busPIRone HCl 7.5 MG 1 tablet Orally ONCE A DAY for 90 days Active fluticasone propionate 0.05 mg/actuat metered dose nasal spray (13 sources) Corticosteroid Start: 11-06-2023 End: 07-10-2024 Fluticasone Propionate (Flonase Allergy Relief) 50 mcg/actuation spray,suspension Discontinued 1 SPRAY INTRANASAL Daily at bedtime November 06, 2023 12:00am July 10, 2024 9:42am take 1-2 spray(s) na kirill route once daily at bedtime FLONASE 50 mcg 1-2 sprays each NOSTRIL QHS Active hydrocortisone 10 mg/ml / neomycin 3.5 mg/ml / polymyxin b [id number] unt/ml otic suspension (2 sources) Aminoglycoside Antibacterial, Polymyxin-class Antibacterial, Corticosteroid Start: 04-27-2024 End: 07-10-2024 Mqkbuwqy-Nhfgknemf-Ht 3.5-10,000-1 mg/mL-unit/mL-% drops,suspension Discontinued 4 DROPS OTIC Every 8 hours as needed for ear pain 10 April 27, 2024 1:00am July 10, 2024 9:42am predniSONE 20 mg oral tablet (13 sources) [...] 3 days for 7 days Nov, Not-Taking/PRN tiZANidine 4 mg oral tablet (16 sources) Central alpha-2 Adrenergic Agonist Start: 08-22-2023 End: 07-10-2024 take 1 tablet by mouth once daily at bedtime Tizanidine 4 mg tablet Discontinued 4 MG PO Daily at bedtime 90 90 November 08, 2023 10:13am July 10, 2024 9:56am Start: 07-23-2023 tiZANidine HCl 4 MG 1/2 - 1 Orally q HS for 30 days Jun, Active triamcinolone acetonide 5 mg/ml topical cream (19 sources) Corticosteroid Start: 11-06-2023 End: 07-10-2024 Triamcinolone Acetonide 0.5 % cream Discontinued 1 APPLIC TOPICAL Twice daily as needed November 06, 2023 12:00am July 10, 2024 9:42am Start: 12-19-2022 Triamcinolone Acetonide 0.5 % 1 [...] to plants, except food] Episodic Anxiety disorders (19 sources) Generalized anxiety disorder; Translations: [Generalized anxiety disorder] Chronic Asthma (13 sources) Unspecified asthma, uncomplicated; Translations: [Uncomplicated mild persistent asthma] Onset: 08-26-2020 Chronic Diabetes mellitus with complications (20 sources) Hyperglycemia due to type 2 diabetes mellitus; Translations: [Type 2 diabetes mellitus with hyperglycemia] Chronic Disorders of lipid metabolism (20 sources) Pure hypercholesterolemia, unspecified; Translations: [Pure hypercholesterolemia] Onset: 08-26-2020 Chronic Diverticulosis and diverticulitis (2 sources) Diverticulitis; Translations: [Diverticulitis of intestine, part unspecified, without perforation or abscess without bleeding] Chronic E Codes: Fall (1 source) Unspecified fall due to ice and snow, initial encounter; Translations: [Fall due to slipping on ice or snow] 08-17-2024 Episodic Essential hypertension (20 sources) Essential (primary) hypertension; Translations: [Essential hypertension] Onset: 08-26-2020 Chronic Fracture of upper limb (1 source) Displaced fracture of olecranon process without intraarticular extension of right ulna, initial encounter for closed fracture; Translations: [Fracture of olecranon process of right ulna] 08-17-2024 Episodic Miscellaneous mental health disorders (20 sources) Primary insomnia; Translations: [Primary insomnia] Chronic [...] actinic otitis externa, right ear] Episodic Other non-traumatic joint disorders (1 source) Pain in elbow; Translations: [Pain in right elbow] 08-17-2024 Episodic Other screening for suspected conditions (not mental disorders or infectious disease) (19 sources) Encounter for screening for malignant neoplasm of prostate; Translations: [Encounter for screening for malignant neoplasm of colon] Onset: 08-24-2020 Episodic Comment on above: PSA: 1.10 - 06/2023, 1.15 - 06/2024 Other skin disorders (9 sources) Vesicular eczema of hands and/or feet; Translations: [Dyshidrosis [pompholyx]] Episodic Screening and history of mental health and substance abuse codes (2 sources) Encounter for screening for depression; Translations: [Depression screening] Episodic Spondylosis; intervertebral disc disorders; other back problems (14 sources) Lumbar spondylosis; Translations: [Spondylosis without myelopathy or radiculopathy, lumbar region] Chronic Spondylosis; intervertebral disc disorders; other back problems (6 sources) Low back pain; Translations: [Low back [...] Test Name Value Interpretation Reference Range Facility Basophils Auto (Bld) [#/Vol] on 07-10-2024 Basophils (Bld) [#/Vol] Automated basophil count 0.0-0.1 [facility] Basophils/100 WBC Auto (Bld) on 07-10-2024 Basophils/100 WBC (Bld) Automated basophil % 0.2-2.0 [facility] Cholesterol in LDL Calc [Mas s/Vol]on 07-10-2024 Cholesterol in LDL [Mass/Vol] Cholesterol in LDL [Mass/volume] in Serum or Plasma by calculation [facility] Comment on above: <100 mg/dl [id number] 0-129 mg/dl NEAR OR ABOVE [id number] mg/dl BORDERLINE [id number] mg/dl HIGH>190 mg/dl VERY HIGH Cholesterol in VLDL Calc [Ma ss/Vol]on 07-10-2024 Cholesterol in VLDL [Mass/Vol] Cholesterol in VLDL [Mass/volume] in Serum or Plasma by calculation [facility] Eosinophils/100 WBC Auto (Bl d)on 07-10-2024 Eosinophils/100 WBC (Bld) Automated eosinophil % 0.9-7.0 [facility] Erythrocyte distribution wid th Auto (RBC) [Ratio]on 07-10-2024 Erythrocyte distribution width (RBC) [Ratio] Erythrocyte distribution width [Ratio] by Automated count 11.0-15.0 [facility] Estimated glomerular filtrat ion rate (GFR) non- Americanon 07-10-2024 GFR/1.73 sq M.predicted among non-blacks MDRD (S/P/Bld) [Vol rate/Area] Estimated glomerular filtration rate (GFR) non- >=60 mL/min/1.73m 2 [facility] Globulin Calc (S) [Mass/Vol] on 07-10-2024 Globulin (S) [Mass/Vol] Serum globulin measurement by calculation (mass/volume) [facility] Glucose mean value [Mass/vol ume] in Blood Estimated from glycated hemoglobinon 07-10-2024 Average glucose Estimated from glycated hemoglobin (Bld) [Mass/Vol] Glucose mean value [Mass/volume] in Blood Estimated from glycated hemoglobin [facility] Hematocrit Auto (Bld) [Volum e fraction]on 07-10-2024 Hematocrit (Bld) [Volume fraction] Hematocrit [Volume Fraction] of Blood by Automated count 42.0-54.0 [facility] Hemoglobin [Mass/volume] in Bloodon 07-10-2024 Hemoglobin (Bld) [Mass/Vol] Hemoglobin [Mass/volume] in Blood 14.0-18.0 [facility] Laboratory - Chemistry and C hemistry - challengeon 07-10-2024 Albumin [Mass/Vol] 3.9 g/dL 3.4-5.0 [facility] ALP [Catalytic activity/Vol] 83 U/L 46-116 [facility] ALT [Catalytic activity/Vol] 53 U/L 16-63 [facility] AST [Catalytic activity/Vol] 33 U/L 15-37 [facility] Bilirubin [Mass/Vol] 0.4 mg/dL 0.2-1.0 [facility] Calcium [Mass/Vol] 9.1 mg/dL 8.5-10.1 [facility] Chloride [Moles/Vol] 102 mmol/L 98-107 [facility] Cholesterol [Mass/Vol] 232 mg/dL High <=200 [facility] Cholesterol in HDL [Mass/Vol] 47 mg/dL 40-60 [facility] Comment on above: > or =60 mg/dl - LOW CARDIOVASCULAR RISK<40 mg/dl - HIGH CARDIOVASCULAR RISK CO2 [Moles/Vol] 30.1 mmol/L 21.0-32.0 [facility] Creatinine [Mass/Vol] 0.85 mg/dL 0.70-1.30 [facility] GFR/1.73 sq M.predicted MDRD (S/P/Bld) [Vol rate/Area] mL/min/{1.73_m2} >=60 mL/min/1.73m 2 [facility] Glucose [Mass/Vol] 140 mg/dL High 74-106 [facility] Potassium [Moles/Vol] 4.0 mmol/L 3.5-5.1 [facility] Protein [Mass/Vol] 7.7 g/dL 6.4-8.2 [facility] Sodium [Moles/Vol] 140 mmol/L 136-145 [facility] Triglyceride [Mass/Vol] 303 mg/dL High <=150 [facility] Urea nitrogen [Mass/Vol] 13.0 mg/dL 7.0-18.0 [facility] Urea nitrogen/Creatinine [Mass ratio] 15.3 mg/mg [facility] Laboratory - Hematology and Cell countson 07-10-2024 HbA1c (Bld) [Mass fraction] 7.0 % High 4.5-6.2 [facility] Comment on above: ADA RECOMMENDED LIMI T 4.0 - 6.0ADA THERAPEUTIC TARGET < 7.0ACTION SUGGESTED> 7.0 Immature granulocytes/100 WBC (Bld) 0.5 % 0.0-0.5 [facility] Leukocytes [#/volume] correc leandra for nucleated erythrocytes in Blood by Automated counon 07-10-2024 WBC corrected for nucl RBC Auto (Bld) [#/Vol] Leukocytes [#/volume] corrected for nucleated erythrocytes in Blood by Automated coun 4.0-11.0 [facility] Lymphocytes Auto (Bld) [#/Vo l]on 07-10-2024 Lymphocytes (Bld) [#/Vol] Lymphocytes [#/volume] in Blood by Automated count 1.2-3.8 [facility] Lymphocytes/100 WBC Auto (Bl d)on 07-10-2024 Lymphocytes/100 WBC (Bld) Lymphocytes/100 leukocytes in Blood by Automated count 20.5-60.0 [facility] MCH Auto (RBC) [Entitic mass ]on 07-10-2024 MCH (RBC) [Entitic mass] MCH [Entitic mass] by Automated count 25.9-34.0 [facility] MCHC Auto (RBC) [Mass/Vol]on 07-10-2024 MCHC (RBC) [Mass/Vol] MCHC [Mass/volume] by Automated count 29.9-35.2 [facility] MCV Auto (RBC) [Entitic vol] on 07-10-2024 MCV (RBC) [Entitic vol] MCV [Entitic volume] by Automated count High 80.0-94.0 [facility] Microalbumin [Mass/volume] i n Urineon 07-10-2024 Albumin DL <= 20 mg/L (U) [Mass/Vol] Microalbumin [Mass/volume] in Urine <=30.0 [facility] Monocytes Auto (Bld) [#/Vol] on 07-10-2024 Monocytes (Bld) [#/Vol] Automated blood monocyte count High 0.3-0.8 [facility] Monocytes/100 WBC Auto (Bld) on 07-10-2024 Monocytes/100 WBC (Bld) Automated monocyte % High 1.7-12.0 [facility] Neutrophils Auto (Bld) [#/Vo l]on 07-10-2024 Neutrophils (Bld) [#/Vol] Neutrophils [#/volume] in Blood by Automated count 1.4-6.5 [facility] Neutrophils/100 WBC Auto (Bl d)on 07-10-2024 Neutrophils/100 WBC (Bld) Automated neutrophil % 43.0-75.0 [facility] No Panel Informationon 07-10 Eosinophils # (Auto) 0.3 10 3/uL 0.0-0.7 [facility] Immature Granulocyte # (Auto) 0.03 10 3/uL 0.00-0.03 [facility] Prostate Specific Antigen Screen 1.15 ng/mL <=4.00 [facility] Urine Random Creatinine 114.49 mg/dL 20.00-300.00 [facility] Platelet mean volume Auto (B ld) [Entitic vol]on 07-10-2024 Platelet mean volume (Bld) [Entitic vol] Platelet mean volume [Entitic volume] in Blood by Automated count 9.5-13.5 [facility] Platelets Auto (Bld) [#/Vol] on 07-10-2024 Platelets (Bld) [#/Vol] Platelets [#/volume] in Blood by Automated count 150-450 [facility] RBC Auto (Bld) [#/Vol]on RBC (Bld) [#/Vol] Erythrocytes [#/volume] in Blood by Automated count Low 4.70-6.10 [facility] Serum or plasma albumin/glob ulin mass ratioon 07-10-2024 Albumin/Globulin [Mass ratio] Serum or plasma albumin/globulin mass ratio [facility] Serum or plasma anion gap de terminationon 07-10-2024 Anion gap [Moles/Vol] Serum or plasma anion gap determination [facility] Serum or plasma total choles terol/high density lipoprotein (HDL) cholesterol mass [place] 07-10-2024 Cholesterol.total/Ch olesterol in HDL [Mass ratio] Serum or plasma total cholesterol/high density lipoprotein (HDL) cholesterol mass rat [facility] Comment on above: 3.3 - 4.4 LOW RISK4. 4 - 7.1 AVERAGE RISK7.1 - 11.0 MODERATE RISK>11.0 HIGH RISK Urine microalbumin/creatinin e mass ratioon 07-10-2024 Albumin/Creatinine DL <= 20 mg/L (U) [Mass ratio] Urine microalbumin/creatin ine mass ratio High 0.0-29.9 [facility] Comment on above: NO MICROALBUMINURIA 0-29 MG/GCLINICAL MICROALBUMINURIA 30-300 MG/GMACROALBUMINURIA >300 MG/G Comprehensive Metabolic Pane emmett 07-23-2023 Albumin [Mass/Vol] 4.904978 g/dL Normal 3.4-5.0 g/dL [facility] [employer] Other ALP [Catalytic activity/Vol] 94 U/L Normal 46-116 U/L [facility] Other ALT [Catalytic activity/Vol] 58 U/L Normal 16-63 U/L [facility] Other Anion gap [Moles/Vol] 10.6 mmol/L [facility] Other AST [Catalytic activity/Vol] 28 U/L Normal 15-37 U/L [facility] Other Bilirubin [Mass/Vol] 0.2159394 mg/dL Normal 0.2-1.0 mg /dL [employer] Other Calcium [Mass/Vol] 9.1604787 mg/dL Normal 8.5-10 .1 mg/dL [employer] Other Chloride [Moles/Vol] 103 mmol/L Normal 98-107 mmol/L [facility] [employer] Other CO2 [Moles/Vol] 30.55797287 mmol/L Normal 21.0-3 2.0 mmol/L [facility] [employer] Other Creatinine [Mass/Vol] 0.32798962 mg/dL Low 0.70-1.30 mg/dL [facility] [employer] Other Glucose [Mass/Vol] 114 mg/dL High 74-106 mg/dL [facility] [employer] Other Potassium [Moles/Vol] 3.56395254 mmol/L Normal 3.5-5.1 mmol/L [facility] [employer] Other Protein [Mass/Vol] 8.733495 g/dL Normal 6.4-8.2 g/dL [facility] [employer] Other Sodium [Moles/Vol] 140 mmol/L Normal 136-145 mmol/L [facility] [employer] Other Urea nitrogen [Mass/Vol] 9.8161871 mg/dL Normal 7.0-18.0 mg/dL [facility] [employer] Other Urea nitrogen/Creatinine [Mass ratio] 13.0 mg/mg [facility] [employer] Other Comprehensive Metabolic Panel 4.0 g/dL [facility] [employer] Other Comprehensive Metabolic Panel 1.0 [facility] [employer] Other Comprehensive Metabolic Panel see note [employer] Other Comprehensive Metabolic Panel >60 >=60 [employer] Other Lipid Panelon 07-23-2023 Cholesterol [Mass/Vol] 166 mg/dL <=200 mg/dL [employer] Other Cholesterol in HDL [Mass/Vol] 44 mg/dL Normal 40-60 mg/dL [employer] Other Triglyceride [Mass/Vol] 114 mg/dL <=150 mg/dL [employer] Other Lipid Panel 99.2 mg/dL [facility] [employer] Other Lipid Panel 22.8 mg/dL [facility] [employer] Other Lipid Panel 3.8 [facility] [employer] Other PSA SCREENINGon 07-23-2023 PSA SCREENING 1.10 ng/mL <=4.00 ng/mL [facility] [employer] Other Comprehensive Metabolic Pane emmett 07-13-2022 Albumin [Mass/Vol] 4.1 g/dL [facility] [employer] Other Calcium [Mass/Vol] 9.9 mg/dL [facility] [employer] Other Chloride [Moles/Vol] 101 mmol/L [facility] [employer] Other CO2 [Moles/Vol] 30.6 mmol/L [facility] [employer] Other Creatinine [Mass/Vol] 0.65 mg/dL [facility] [employer] Other Creatinine [Mass/Vol] 21.5 mg/dL [facility] [employer] Other Glucose [Mass/Vol] 135 mg/dL [facility] [employer] Other Potassium [Moles/Vol] 4.2 mmol/L [facility] [employer] Other Sodium [Moles/Vol] 139 mmol/L [facility] [employer] Other Urea nitrogen [Mass/Vol] 14.0 mg/dL [facility] [employer] Other Comprehensive Metabolic Panel [facility] [employer] Other Comprehensive Metabolic Panel >60 [facility] [employer] Other Comprehensive Metabolic Panel 7.8 [facility] [employer] Other Comprehensive Metabolic Panel 3.7 [facility] [employer] Other CBC AUTO DIFFon 07-21-2021 BASO # 0.1 103/ul Normal 0.0-0.1 [facility] Comment on above: Performed By: #### C BC #### [facility] [address] [address] [address] Iliana Condon Basophils/100 WBC (Bld) 1.1 % Normal 0.2-2.0 [facility] Comment on above: Performed By: #### C BC #### [facility] [address] [place] [address] Dr. Iliana Condon EO # 0.2 103/ul Normal 0.0-0.7 [facility] Comment on above: Performed By: #### C BC #### [facility] [address] [place] [address] Dr. Iliana Condon Eosinophils/100 WBC (Bld) 4.2 % Normal 0.9-7.0 [facility] Comment on above: Performed By: #### C BC #### [facility] [address] [place] [address] Dr. Iliana Condon Erythrocyte distribution width (RBC) [Ratio] 13.2 % Normal 11.0-15.0 [facility] Comment on above: Performed By: #### C BC #### [facility] [address] [place] [address] Dr. Iliana Condon Hematocrit (Bld) [Volume fraction] 47.5 % Normal 42.0-54.0 [facility] Comment on above: Performed By: #### C BC #### [facility] [address] [place] [address] Dr. Iliana Condon Hemoglobin (Bld) [Mass/Vol] 16.2 g/dL Normal 14.0-18.0 [facility] Comment on above: Performed By: #### C BC #### [facility] [address] [place] [address] Dr. Iliana Condon IG # 0.01 10e3/ul Normal 0.00-0.03 [facility] Comment on above: Performed By: #### C BC #### [facility] [address] [place] [address] Dr. Iliana Condon IG % 0.2 % Normal 0.0-0.5 [facility] Comment on above: Performed By: #### C BC #### [facility] [address] [place] [address] Dr. Iliana Condon LYMPH # 1.5 103/ul Normal 1.2-3.8 [facility] Comment on above: Performed By: #### C BC #### [facility] [address] [place] [address] Dr. Iliana Condon Lymphocytes/100 WBC (Bld) 28.6 % Normal 20.5-60.0 [facility] Comment on above: Performed By: #### C BC #### [facility] [address] [place] [address] Dr. Iliana Condon MANUAL DIFF REQ NO Normal [facility] Comment on above: Performed By: #### C BC #### [facility] [address] [place] [address] Dr. Iliana Condon MCH (RBC) [Entitic mass] 31.8 pg Normal 25.9-34.0 [facility] Comment on above: Performed By: #### C BC #### [facility] [address] [place] [address] Dr. Iliana Condon MCHC (RBC) [Mass/Vol] 34.1 g/dL Normal 29.9-35.2 [facility] Comment on above: Performed By: #### C BC #### [facility] [address] [place] [address] Dr. Iliana Condon MCV (RBC) [Entitic vol] 93.1 fL Normal 80.0-94.0 [facility] Comment on above: Performed By: #### C BC #### [facility] [address] [place] [address] Dr. Iliana Condon MONO # 0.7 103/ul Normal 0.3-0.8 [facility] Comment on above: Performed By: #### C BC #### [facility] [address] [place] [address] Dr. Iliana Condon Monocytes/100 WBC (Bld) 12.6 % Critically high 1.7-12.0 [facility] Healthcare Comment on above: Performed By: #### C BC #### [facility] [address] [place] [address] Dr. Iliana Condon NEUT # 2.8 103/ul Normal 1.4-6.5 [facility] Comment on above: Performed By: #### C BC #### [facility] [address] [place] [address] Dr. Iliana Condon Neutrophils/100 WBC (Bld) 53.3 % Normal 43.0-75.0 [facility] Comment on above: Performed By: #### C BC #### [facility] [address] [address] [address] Iliana Condon Platelet mean volume (Bld) [Entitic vol] 9.4 fL Critically low 9.5-13.5 [facility] Comment on above: Performed By: #### C BC #### [facility] [address] [place] [address] Dr. Iliana Condon PLT 224 103/ul Normal 150-450 [facility] Comment on above: Performed By: #### C BC #### [facility] [address] [place] [address] Dr. Iliana Condon RBC 5.10 106/ul Normal 4.70-6.10 [facility] Comment on above: Performed By: #### C BC #### [facility] [address] [place] [address] Dr. Iliana Condon WBC 5.2 103/ul Normal 4.0-11.0 [facility] Comment on above: Performed By: #### C BC #### [facility] [address] [place] [address] Dr. Iliana Condon GLYCOHEMOGLOBIN A1Con 2021 ADA RECOMMENDATION ADA THERAPEUTIC TARGET 6.0 - 7.0 ACTION SUGGESTED > 7.0 Normal [facility] Comment on above: Performed By: #### A 1C #### [facility] [address] [place] [address] Dr. Iliana Condon Glucose [Mass/Vol] 140 mg/dL Normal [facility] Comment on above: Performed By: #### A 1C #### [facility] [address] [place] [address] Dr. Iliana Condon HbA1c (Bld) [Mass fraction] 6.5 % Critically high <=6.0 [facility] Comment on above: Performed By: #### A 1C #### [facility] [address] [address] [address] Iliana Condon LIPID PROFILEon 07-21-2021 CHOL-HDL RATIO NORM SEE BELOW Normal [facility] Comment on above: Result Comment: 3.3 - 4.4 LOW RISK 4.4 - 7.1 AVERAGE RISK 7.1 - 11.0 MODERATE RISK >11.0 HIGH RISK Performed By: #### L IPID, CMP #### [facility] [address] [place], [place] [address] Dr. Iliana Condon Cholesterol [Mass/Vol] 233 mg/dL Critically high <=200 [facility] Comment on above: Performed By: #### L IPID, CMP #### [facility] [address] [address] [address] Iliana Condon Cholesterol in HDL [Mass/Vol] 57 mg/dL Normal [facility] Comment on above: Performed By: #### L IPID, CMP #### [facility] [address] [address] [address] Iliana Condon Cholesterol in LDL [Mass/Vol] 128.4 mg/dL Normal [facility] Comment on above: Performed By: #### L IPID, CMP #### [facility] [address] [place], [place] [address] Dr. Iliana Condon Cholesterol.total/Ch olesterol in HDL [Mass ratio] 4.1 {ratio} Normal [facility] Comment on above: Performed By: #### L IPID, CMP #### [facility] [address] [place], [place] [address] Dr. Iliana Condon HDL NORMAL > or = 60 mg/dl - LOW CARDIOVASCULAR RISK <40 mg/dl - HIGH CARDIOVASCULAR RISK Normal [facility] Comment on above: Performed By: #### L IPID, CMP #### [facility] [id number] Iliana Condon LDL CALC NORMAL SEE BELOW Normal [facility] Comment on above: Result Comment: <100 mg/dl OPTIMAL 100 - 129 mg/dl NEAR OR ABOVE OPTIMAL 130 - 159 mg/dl BORDERLINE HIGH 160 - 189 mg/dl HIGH >190 mg/dl VERY HIGH Performed By: #### L IPID, CMP #### [facility] [address] [place] [address] Dr. Iliana Condon Triglyceride [Mass/Vol] 238 mg/dL Critically high <=150 [facility] Comment on above: Performed By: #### L IPID, CMP #### [facility] [address] [address] [address] Iliana Condon VLDL CALC 47.6 mg/dL Normal [facility] Comment on above: Performed By: #### L IPID, CMP #### [facility] [address] [place] [address] Dr. Iliana Condon MICROALBUMIN, RAND URon 06-25 mALB 21.2 mg/L Normal <=30.0 [facility] Comment on above: Performed By: #### M ALBR #### [facility] [address] [place] [address] Dr. Iliana Condon PROF 14(COMP METB)on 022 Albumin [Mass/Vol] 4.2 g/dL Normal 3.5-5.0 [facility] Comment on above: Performed By: #### L IPID, CMP #### [facility] [address] [place] [address] Dr. Iliana Condon Albumin/Globulin [Mass ratio] 1.1 {ratio} Normal [facility] Comment on above: Performed By: #### L IPID, CMP #### [facility] [address] [place] [address] Dr. Iliana Condon ALP [Catalytic activity/Vol] 97 U/L Normal 38-126 [facility] Comment on above: Performed By: #### L IPID, CMP #### [facility] [address] [place] [address] Dr. Iliana Condon ALT [Catalytic activity/Vol] 62 U/L Normal 21-72 [facility] Comment on above: Performed By: #### L IPID, CMP #### [facility] [address] [address] [address] Iliana Condon Anion gap [Moles/Vol] 13.6 mmol/L Normal [facility] Comment on above: Performed By: #### L IPID, CMP #### [facility] [address] [address] [address] Iliana Condon AST [Catalytic activity/Vol] 34 U/L Normal 17-59 [facility] Comment on above: Performed By: #### L IPID, CMP #### [facility] [address] [place] [address] Dr. Iliana Condon Bilirubin [Mass/Vol] 0.6 mg/dL Normal 0.2-1.3 [facility] Comment on above: Performed By: #### L IPID, CMP #### [facility] [address] [place] [address] Dr. Iliana Condon Calcium [Mass/Vol] 10.2 mg/dL Normal 8.4-10.2 [facility] Comment on above: Performed By: #### L IPID, CMP #### [facility] [address] [place] [address] Dr. Iliana Condon Chloride [Moles/Vol] 100 mmol/L Normal 98-107 [facility] Comment on above: Performed By: #### L IPID, CMP #### [facility] [address] [place] [address] Dr. Iliana Condon CO2 [Moles/Vol] 27.2 mmol/L Normal 22.0-30.0 [facility] Comment on above: Performed By: #### L IPID, CMP #### [facility] [address] [place] [address] Dr. Iliana Condon Creatinine [Mass/Vol] 0.61 mg/dL Critically low 0.66-1.25 [facility] Comment on above: Performed By: #### L IPID, CMP #### [facility] [address] [address] [address] Iliana Condon EGFR-AF TURKS AND CAICOS ISLANDER >60 Normal >=60 [facility] Comment on above: Performed By: #### L IPID, CMP #### [facility] [address] [address] [address] Iliana Condon EGFR-NON AF TURKS AND CAICOS ISLANDER >60 Normal >=60 [facility] Comment on above: Performed By: #### L IPID, CMP #### [facility] [address] [address] [address] Iliana Condon Globulin (S) [Mass/Vol] 3.8 g/dL Normal [facility] Comment on above: Performed By: #### L IPID, CMP #### [facility] [address] [place] [address] Dr. Iliana Condon Glucose [Mass/Vol] 103 mg/dL Normal 74-106 [facility] Comment on above: Performed By: #### L IPID, CMP #### [facility] [address] [place] [address] Dr. Iliana Condon Potassium [Moles/Vol] 4.8 mmol/L Normal 3.4-5.0 [facility] Comment on above: Performed By: #### L IPID, CMP #### [facility] [address] [place] [address] Dr. Iliana Condon Protein [Mass/Vol] 8.0 g/dL Normal 6.1-8.2 [facility] Comment on above: Performed By: #### L IPID, CMP #### [facility] [address] [place] [address] Dr. Iliana Condon Sodium [Moles/Vol] 136 mmol/L Critically low 137-145 [facility] Comment on above: Performed By: #### L IPID, CMP #### [facility] [address] [place] [address] Dr. Iliana Condon Urea nitrogen [Mass/Vol] 15.0 mg/dL Normal 9.0-20.0 [facility] Comment on above: Performed By: #### L IPID, CMP #### [facility] [address] [place] [address] Dr. Iliana Condon Urea nitrogen/Creatinine [Mass ratio] 24.6 mg/mg Normal [facility] Comment on above: Performed By: #### L IPID, CMP #### [facility] [address] [place] [address] Dr. Iliana Condon Covid-19 PCR (CVDTB)on 06-24 SARS-CoV-2 (COVID-19) RNA TRISTA+probe Ql (Unsp spec) Not detected Normal NOT DETECTED [facility] Comment on above: Result Comment: This test is not yet approved or cleared by the [place] FDA. When there are no FDA-approved or cleared tests available, and other criteria are met, FDA can make tests available under an emergency access mechanism called an Emergency Use Authorization (EUA). The EUA for this test is supported by the Cover Maker of Health and Human Service's (HHS's) declaration [...] SARS-CoV-2. Performed By: #### C VDTB #### [facility] [address] [place] [address] Dr. Iliana Condon Covid-19 PCR (CVDTB)on 07-26 SARS-CoV-2 (COVID-19) RNA TRISTA+probe Ql (Unsp spec) Not detected Normal NOT DETECTED [facility] Comment on above: Result Comment: This test is not yet approved or cleared by the [place] FDA. When there are no FDA-approved or cleared tests available, and other criteria are met, FDA can make tests available under an emergency access mechanism called an Emergency Use Authorization (EUA). The EUA for this test is supported by the Cover Maker of Health and Human Service's (HHS's) declaration [...] consistent with SARS-CoV-2. Performed By: #### C [facility] #### [facility] [address] [address] Renetta Fajardo Vital Signs Date Time Vital Sign Value Performing Clinician Facility 09-09-2024 11:44-0400 Body height 162.56 cm [facility] 09-09-2024 11:44-0400 Body mass index (BMI) [Ratio] 22.6 kg/m2 [facility] 09-09-2024 11:44-0400 Body weight 59.64 kg [facility] 09-09-2024 11:44-0400 Diastolic blood pressure 77 mm[Hg] [facility] 09-09-2024 11:44-0400 Heart rate 121 /min [facility] 09-09-2024 11:44-0400 Respiratory rate 12 /min [facility] 09-09-2024 11:44-0400 Systolic blood pressure 133 mm[Hg] [facility] 07-10-2024 08:38-0500 Body height 162.56 cm [facility] 07-10-2024 08:38-0500 Body mass index (BMI) [Ratio] 22.8 kg/m2 [facility] 07-10-2024 08:38-0500 Body weight 60.38 kg [facility] 07-10-2024 08:38-0500 Diastolic blood pressure 86 mm[Hg] [facility] 07-10-2024 08:38-0500 Heart rate 93 /min [facility] 07-10-2024 08:38-0500 Respiratory rate 12 /min [facility] 07-10-2024 08:38-0500 Systolic blood pressure 138 mm[Hg] [facility] 03-09-2024 15:47-0400 Body height 162.56 cm [facility] 03-09-2024 15:47-0400 Body mass index (BMI) [Ratio] 22.1 kg/m2 [facility] 03-09-2024 15:47-0400 Body weight 58.57 kg [facility] 03-09-2024 15:47-0400 Diastolic blood pressure 89 mm[Hg] [facility] 03-09-2024 15:47-0400 Heart rate 103 /min [facility] 03-09-2024 15:47-0400 Respiratory rate 12 /min [facility] 03-09-2024 15:47-0400 Systolic blood pressure 139 mm[Hg] [facility] 11-08-2023 10:02-0400 Body height 162.56 cm [facility] 11-08-2023 10:02-0400 Body mass index (BMI) [Ratio] 21.8 kg/m2 [facility] 11-08-2023 10:02-0400 Body weight 57.66 kg [facility] 11-08-2023 10:02-0400 Diastolic blood pressure 83 mm[Hg] [facility] 11-08-2023 10:02-0400 Heart rate 101 /min [facility] 11-08-2023 10:02-0400 Respiratory rate 12 /min [facility] 11-08-2023 10:02-0400 Systolic blood pressure 127 mm[Hg] [facility] 07-23-2023 08:30-0500 Body height 162.56 cm Waylon Ball Other [facility] [employer] Other 07-23-2023 08:30-0500 Body mass index (BMI) [Ratio] 20.42 kg/m2 Waylon Ball Other [employer] [facility] [employer] Other 07-23-2023 08:30-0500 Body weight 53.98 kg Waylon Ball Other [employer] [facility] [employer] Other 07-23-2023 08:30-0500 Diastolic blood pressure 84 mm[Hg] Waylon Ball Other [employer] Other 07-23-2023 08:30-0500 Respiratory rate 12 /min Waylon Ball Other [employer] Other 07-23-2023 08:30-0500 Systolic blood pressure 133 mm[Hg] Waylon Ball Other [employer] Other 2023 09:00-0400 Body height 162.56 cm Waylon Ball Other [employer] Other 2023 09:00-0400 Body mass index (BMI) [Ratio] 21.54 kg/m2 Waylon Ball Other [employer] Other 2023 09:00-0400 Body weight 56.93 kg Waylon Ball Other [employer] Other 2023 09:00-0400 Diastolic blood pressure 80 mm[Hg] Waylon Ball Other [employer] Other 2023 09:00-0400 Respiratory rate 12 /min Waylon Ball Other [employer] Other 2023 09:00-0400 Systolic blood pressure 130 mm[Hg] Waylon Ball Other [employer] Other 12-19-2022 15:45-0400 Body height 162.56 cm Waylon Ball Other [employer] Other 12-19-2022 15:45-0400 Body mass index (BMI) [Ratio] 21.83 kg/m2 Waylon Ball Other [employer] Other 12-19-2022 15:45-0400 Body weight 57.7 kg Waylon Ball Other [employer] Other 12-19-2022 15:45-0400 Diastolic blood pressure 84 mm[Hg] Waylon Ball Other [employer] Other 12-19-2022 15:45-0400 Respiratory rate 12 /min Waylon Ball Other [employer] Other 12-19-2022 15:45-0400 Systolic blood pressure 134 mm[Hg] Waylon Ball Other [employer] Other 07-13-2022 09:30-0500 Body height 162.56 cm Waylon Ball Other [employer] Other 07-13-2022 09:30-0500 Body mass index (BMI) [Ratio] 22.04 kg/m2 Waylon Ball Other [employer] Other 07-13-2022 09:30-0500 Body weight 58.24 kg Waylon Ball Other [employer] Other 07-13-2022 09:30-0500 Diastolic blood pressure 76 mm[Hg] Waylon Ball Other [employer] Other 07-13-2022 09:30-0500 Respiratory rate 12 /min Waylon Ball Other [employer] Other 07-13-2022 09:30-0500 Systolic blood pressure 122 mm[Hg] Waylon Ball Other [employer] Other Encounters Encounter Date Encounter Type Care Provider Facility Start: 09-09-2024 End: 09-09-2024 ambulatory [facility] Work Phone: Start: 09-09-2024 End: 09-09-2024 Patient encounter procedure [facility] Work Phone: Start: 08-11-2024 Non-patient / Non-visit [facility] Work Phone: Start: 07-27-2024 End: 07-27-2024 ambulatory Roc Romo MD Facility:[facility] Start: 07-10-2024 End: 07-10-[address] [facility] Work Phone: Start: 07-10-2024 End: 07-10-2024 Encounter for general adult medical examination without abnormal findings [facility] Start: 07-10-2024 End: 07-10-2024 Patient encounter procedure [facility] Work Phone: Start: 07-07-2024 Patient encounter status [facility] Start: 03-09-2024 End: 03-09-[address] [facility] Work Phone: Start: 03-09-2024 End: 03-09-2024 Patient encounter procedure [facility] Work Phone: Start: 11-08-2023 End: 11-08-[address] [facility] Work Phone: Start: 11-08-2023 End: 11-08-2023 Patient encounter procedure [facility] Work Phone: Start: 08-22-2023 Non-patient / Non-visit [facility] Work Phone: Start: 07-23-2023 End: 07-23-2023 ambulatory Waylon Byers Other [employer] Other Start: 07-23-2023 Encounter for genera l adult medical examination without abnormal findings Waylon Byers [facility] Start: 07-23-2023 Periodic preventive med est patient 40-64yrs Waylon Byers [facility] Start: 07-23-2023 Telephone encounter Waylon Byers [facility] Start: 02-26-2023 End: 02-26-2023 ambulatory Waylon Byers Other [employer] Other Start: 02-26-2023 Telephone encounter Waylon Byers [facility] Start: 2023 End: 2023 ambulatory Waylon Fredrick Other [employer] Other Start: 2023 Patient encounter procedure Waylon Byers [facility] Start: 12-19-2022 End: 12-19-2022 ambulatory Waylon Byers Other [employer] Other Start: 12-19-2022 Office outpatient vi sit 15 minutes Waylon Byers [facility] Start: 12-18-2022 End: 12-18-2022 ambulatory Waylon Byers Other [employer] Other Start: 12-18-2022 Telephone encounter Waylon ARANDA [facility] Start: 12-14-2022 End: 12-14-2022 ambulatory Waylon Byers Other [employer] Other Start: 12-14-2022 Telephone encounter Waylon ARANDA [facility] Start: 07-29-2022 End: 07-29-2022 ambulatory Waylon Fredrick Other [employer] Other Start: 07-29-2022 Telephone encounter Waylon Byers [facility] Start: 07-13-2022 End: 07-13-2022 ambulatory Waylon Fredrick Other [employer] Other Start: 07-13-2022 Encounter for genera l adult medical examination without abnormal findings Waylon Byers [facility] Start: 07-13-2022 Periodic preventive med est patient 40-64yrs Waylon Byers [facility] Start: 07-25-2021 Encounter for genera l adult medical examination without abnormal findings DR WAYOLN BYERS [facility] Start: 07-21-2021 End: 07-22-[address] WAYLON BYERS Facility:[facility] Start: 07-21-2021 End: 07-22-2021 Encounter for general adult medical examination without abnormal findings DR WAYLON BYERS Facility:[facility] Start: 07-07-2021 End: 07-07-[address] WAYLON BYERS Facility:[facility] Start: 06-23-[address] WAYLON BYERS Facili ty:[facility] Start: 08-25-2020 Encounter for preprocedural laboratory examination DR QING VELEZ [facility] Start: 08-24-2020 End: 08-24-[address] QING VELEZ Facility:[facility] Start: 08-20-2020 End: 08-21-[address] QING VELEZ Facility:[facility] Start: 08-20-2020 End: 08-21-2020 Encounter for preprocedural laboratory examination DR QING VELEZ Facility:[facility] Procedures Date Procedure Procedure Detail Performing Clinician Start: 07-21-[address] JAYCE BYERS Comment on above: Performed By: #### P [facility] #### [facility] [address] [place] [address] Dr. Iliana Condon Depression screening Nany Byers Other Plan of Treatment Date Care Activity Detail Author Start: 07-10-2024 Patient referral [facility] Work Phone: Comprehensive metabo lic 2000 panel - Serum or Plasma [facility] Patient Education Low back pain in adults [facility] Work Phone: Patient referral [facility] Work Phone: XR Lumbar spine Views [facility] Immunizations Immunization Date Immunization Notes Care Provider Fa cility 03-09-2024 influenza, seasonal, injectable, preservative free [facility] 2023 influenza, injectabl e, quadrivalent, preservative free Waylon Byers Other [facility] 03-07-2022 influenza virus vaccine, split virus (incl. purified surface antigen) Waylon Byres Other [employer] Other 03-07-2022 influenza virus vaccine, unspecified formulation [facility] 05-27-2020 zoster vaccine, live Benjami n Fredrick Other [facility] 03-03-2020 zoster vaccine, live Benjami andrew Byers Other [facility] 02-23-2020 influenza virus vaccine, split virus (incl. purified surface antigen) Waylon Byers Other [facility] [employer] Other 02-23-2020 influenza virus vaccine, unspecified formulation [facility] Payers Date Payer Category Payer Unknown 1970 Unknown [id number] [id number] [id number] 1970 Unknown [id number] 2.16.84 [id number] 1970 Unknown [id number] 2.16.84 [id number] 1970 Unknown [id number] 2.16.84 [id number] 1970 Unknown [id number] 2.16.84 [id number] 1970 Unknown [id number] [id number] 1959 Self-pay 1959 Unknown [id number] Unknown [id number] [id number] [id number] Social History Date Type Detail Facility Sex Assigned At [facility] [employer] Other Start: 08-22-2023 End: 08-22-2023 Tobacco smoking status NHIS Ex-smoker (finding) [facility] Start: 1970 Sex Assigned At Male [facility] Start: 07-10-2024 End: 09-09-2024 Sex Male (finding) [facility] Medical Equipment Procedure Code Equipment Code Equipment Original Text Equi pment Identifier Dates Clinical Notes 08-24-2020 to 07-10-2024 Note Date & Type Note Facility 07-10-2024 Evaluation note Diagnosis Onset Date Resolution Essential hypertension acute [facility] 2024 8:22am RANDEE (generalized anxiety disorder) acute July 10, 2024 8:22am Hypercholesterolemia acute 2024 8:22am Low back pain acute June 8:22am Lumbar spondylosis acute Junkaveh bullard 2024 8:22am Primary insomnia acute July 10, 2024 8:22am Screening PSA (prostate specific antigen) acute July 10, 2024 8:22am Type 2 diabetes mellitus with hyperglycemia acute July 10, 2024 8:22am Wellness examination acute 2024 8:22am [facility] Work Phone: [phone] 575-118001-30-2024 Evaluation note* Encounter Date Diagnosis Assessment Notes Treatment Notes Treatment Clinical Notes Jun, Wellness examination (ICD-10 - Z00.00) [...] PSA (prostate specific antigen) (ICD-10 - Z12.5) [facility] Other 09-01-2023 Evaluation note* Encounter Date Diagnosis [...] bedtime. Continue TRazodone, which has been beneficial [facility] Other 06-23-2023 Evaluation note* Encounter Date Diagnosis Assessment Notes Treatment Notes Treatment Clinical Notes Nov, Allergic contact dermatitis due to plants, except food (ICD-10 - L23.7) [facility] Other 01-20-2023 Evaluation note* Encounter Date Diagnosis [...] prevent callus formation and to ease pain. [facility] [employer] Other 03-03-2021 NoteOPERATIVE NOTE OPERATION DATE: 08/24/2020 [...] in 10 years. CC: Waylon Byers DO. IF Signed and Approved by: DR QING VELEZ 08/31/2020 08:02:00[facility] noteNo [facility] [employer] Other [facility] [employer] Other Evaluation note* Diagnosis Onset Date Resolution Status Essential hypertension acute RANDEE (generalized anxiety disorder) acute Hypercholesterolemia acute Lumbar spondylosis acute Primary insomnia acute Type 2 diabetes mellitus with hyperglycemia acute [facility] Work Phone: Evaluation note* Diagnosis Onset Date Resolution Status Admit Date Essential hypertension acute Ja nuary 2024 8:22am RANDEE (generalized anxiety disorder) a cute July 10, 2024 8:22am Hypercholesterolemia acute 2024 8:22am Low back pain acute June 8:22am Lumbar spondylosis acute 2024 8:22am Primary insomnia acute July 10, 2024 8:22am Screening PSA (prostate spec ific antigen) acute July 10 8:22am Type 2 diabetes mellitus wit h hyperglycemia acute July 10 8:22am Wellness examination acute 2024 8:22am [facility] Work Phone: History general Narrative - [...] Surgical History COLONOSCOPY Hospitalization History SEE SURGICAL [facility] Other Hispclz general Narrative - ReportedMaurice [employer] Other History general Narrative - Reported* Type [...] History COLONOSCOPY 08/2020 Hospitalization History SEE SURG[facility] Other Hospital Discharge instructionsAmbulatory Orders* Referral to Pain Management Location: [facility] Work Phone: Summary Purpose Family History Relationship [...] 8:22am Wellness examination July 10, 2024 8:22am Chief Complaint Admit Date Wellness July 10, 2024 8 :22am Amb Documentation August 11, 2024 9:13am Elbow Pain/FMLA September 09, 2024 11: 22am Additional Source Comments (unrecognized sect ion and content) No Status Records FoundNo Status Records Found INFORMATION SOURCE (unrecogn ized section and content) DATE CREATED AUTHOR 07/26/2021 [facility] DATE CREATED AUTHOR AUTHOR'S ORGANIZ ATION 07/30/2024 [facility] REASON FOR VISIT (unrecogniz ed section [...] Waylon Byers DO Primary Care Provider Active Start: August [...] July 10, 2024 End: July 10, 2024 Team Status: Active Member Role Status Dates Waylon Byers DO Primary Care Provider Active Start: August 11, 2024 Linda Macdonald CMA Attending Provider Active Start: August 11, 2024 Team Status: Inactive Member Role Status Dates Waylon Byers DO Primary Care Provide r, Attending Provider Active Start: September 09, 2024 End: September 09, 2024 Goals (unrecognized section and content) Goals [...] BE BASED ON THE PRIMARY CLINICAL RECORDS. [facility]. provides no warranty or guarantee of the accuracy or completeness of information in this document.
[2024-11-06 11:02] LABS: Estimated Average Glucose 148 mg/dL; Glycohemoglobin A1C 6.8 % (4.5-6.2)
== END 2024-11-06 09:33 | disposition home or self-care (01) ==
LOC: LAB 09:33
PROVIDERS: PCP Internal Medicine; Visit Provider Internal Medicine
DX: E11.65 Type 2 diabetes mellitus with hyperglycemia (principal)
CPT/HCPCS: 83036

== ENCOUNTER 2025-01-20 15:06 | Outpatient (OUT) | payer OTHER, SELFPAY ==
--- NOTE | 2025-01-20 15:25 | PM.CN ---
Consult Note: HPI Data of Consult Patient: known to practice within the last 3 years Requesting Physician: Sugar Mar NP Primary Care Provider: Waylon Alcala, Consult Narrative Reason for consult: low back pain Narrative: Milton Sánchez a pleasant 54 year old male presents for evaluation of low back pain secondary to lumbar spondylosis. utilizing celebrex 200mg BID PRN, tizanidine 4mg hs prn, and trazodone 50mg daily with benefit without side effects. pain 4-5/10 increasing with twisting, sitting, bending, activity, weather changes. BINA 10%. pain well controlled. cc:: CC: Sugar Mar NP [facility] Medical History (Updated 01/20/25 @ 15:27 by Sugar Mar NP) Osteoarthritis ?M19.90 - Unspecified osteoarthritis, unspecified site (ICD-10) Diabetes ?E11.9 - Type 2 diabetes mellitus without complications (ICD-10) Asthma ?J45.909 - Unspecified asthma, uncomplicated (ICD-10) HTN (hypertension) ?I10 - Essential (primary) hypertension (ICD-10) Social History Little interest or pleasure in doing things: not at all Feeling down, depressed, or hopeless: not at all Meds Home Medications and Allergies Home Medications ?Medication ?Instructions ?Recorded ?Confirmed ?Type albuterol sulfate 90 mcg/actuation 2 inh inhalation Q8H PRN shortness 07/27/24 07/27/24 History aerosol inhaler of breath or wheezing ascorbic acid (vitamin C) 500 mg 500 mg PO DAILY 07/27/24 07/27/24 History tablet (Vitamin C) atorvastatin 80 mg tablet 80 mg PO DAILY 07/27/24 07/27/24 History celecoxib 200 mg capsule (Celebrex) 200 mg PO BID PRN pain #60 caps 07/27/24 Rx diphenhydramine HCl 25 mg tablet 25 mg PO DAILY PRN sleep 07/27/24 07/27/24 History ezetimibe 10 mg tablet 10 mg PO DAILY 07/27/24 07/27/24 History fluticasone 100 mcg-salmeterol 50 1 inh inhalation BID 07/27/24 07/27/24 History mcg/dose blistr powdr for inhalation (Wixela Inhub) levocetirizine 5 mg tablet 5 mg PO DAILY 07/27/24 07/27/24 History lisinopril 20 mg tablet 20 mg PO DAILY 07/27/24 07/27/24 History omega 7-omc-qci-fish oil 1,200 mg 1 cap PO DAILY 07/27/24 07/27/24 History (144 mg-216 mg) capsule (Fish Oil) tizanidine 4 mg tablet 4 mg PO DAILY PRN muscle spasticity 07/27/24 07/27/24 History trazodone 50 mg tablet 50 mg PO DAILY 07/27/24 07/27/24 History zinc 50 mg tablet 50 mg PO DAILY 07/27/24 07/27/24 History ibuprofen 600 mg tablet 600 mg PO QID PRN pain #20 tabs 08/10/24 Rx oxycodone-acetaminophen 5 mg-325 1 tab PO Q6H PRN pain 4 days #15 08/10/24 Rx mg tablet (Percocet) tabs Allergies Allergy/AdvReac Type Severity Reaction Status Date / Time No Known Drug Allergies Allergy Verified 07/27/24 14:36 Exam Constitutional Documenting provider has reviewed patient's vital signs: yes Common normals: no apparent distress, oriented x3, healthy appearing, alert and well nourished General appearance: cooperative HENMT Common normals: normocephalic, hearing grossly normal bilaterally and moist oral mucous membranes Head and scalp: normocephalic Eye Common normals: PERRL Pupil: PERRL Neck & C-Spine Common normals: full ROM General: normal visual inspection Chest Common normals: inspection of chest normal Respiratory Common normals: normal respiratory effort, no retractions and no use of accessory muscles Back & Pelvis Lumbar spine/lower back: ROM limited, pain with ROM and straight leg raise negative bilaterally; no lumbar spinal tenderness Sacroiliac joints: SI joints normal Other: positive facet loading bilateral L4-5 L5-S1 strength 5/5 in BLE Neuro Common normals: oriented x3 Sensorium/orientation: alert Psych Common normals: mental status grossly normal, thought process normal, cooperative, affect normal, speech normal and activity/motor behavior normal Speech: normal speech Thought process: normal thought process Results Additional Findings Additional findings: If on a controlled substance or opioids, I have checked an [place] report on this patient and there are no aberrancies noted in the prescribing history.??If on a controlled substance or opioid a drug screen was completed and reviewed within the last year, and if there has not been a drug screen completed we ordered one today to monitor higher risk, state monitored pain medication use. As part of providing excellent, safe, comprehensive care, the following was completed at our patient's visit: 1. A medication reconciliation and review to ensure accurate knowledge of current/active medications, including asking our patients to inform us about any [id number]-rza-[id number] medications or herbal remedies/nutritional supplements/alternative remedies. 2. A review to specifically ensure our patients have had annual screening for screening for depression, screening for tobacco use, and screening for unhealthy alcohol use. For concerning screenings had a discussion with the patient, provided patient education, and recommended follow-up with primary care provider when appropriate. If patient noted with a risk of falling, they received education on strength, gait, and balance training to prevent future risk of falling. Portions of this note may have been carried over from the previous visit and updated as appropriate. Please note this office utilizes paper charting in addition to the electronic medical record. A list of current medications, vitals, and PMH is available there as the clinical staff outside of myself do not have access to [employer] charting during the clinic day operations. As part of providing quality comprehensive care the current medications, vitals, and PMH were reviewed in the paper chart. Assessment and Plan Assessment and Plan (1) Lumbar spondylosis: Assessment and Plan: discussed lumbar MBBs and RFA, defer at this time (2) Lumbar degenerative disc disease: (3) Myalgia, other site: Plan defer interventional therapy, pain well controlled with medication regimen. pt asked his pcp to take over medications. can f/u with our office PRN.
== END 2025-01-20 15:07 | disposition home or self-care (01) ==
LOC: PM 15:07
PROVIDERS: PCP Internal Medicine; Visit Provider Nurse Practitioner
DX: M47.816 Spondylosis without myelopathy or radiculopathy, lumbar region (principal); M51.369 Other intervertebral disc degeneration, lumbar region without mention of lumbar back pain or lower extremity pain; M79.18 Myalgia, other site
CPT/HCPCS: G0463